=== PATIENT | female | born 1945 | race Caucasian/White ===

== ENCOUNTER 2021-11-03 17:57 | Inpatient (IN) ==
[2021-11-03] MEDS ORDERED: 0.9 % SODIUM CHLORIDE 1,000 ML IV ONE (18:11)
[2021-11-03] MEDS ORDERED: ACETAMINOPHEN 325 MG TABLET PO ONE (18:11)
[2021-11-03] MEDS ORDERED: 0.9 % SODIUM CHLORIDE 1,640 ML IV ONE (18:12)
[2021-11-03 18:23] LABS: POC Calcium, Ionized 1.14 (1.16-1.32); POC Creatinine 0.6 (0.6-1.2); POC Potassium 3.9 (3.3-5.1)
[2021-11-03] MEDS ORDERED: KETOROLAC 30 MG/ML VIAL IV ONE (18:34)
--- NOTE | 2021-11-03 18:45 | Emergency Department Note ---
Fever HPI General Chief Complaint: Fever Stated Complaint: Fever, confusion Time Seen by Provider: 11/03/21 18:01 Source: EMS Mode of arrival: EMS Limitations: no limitations History of Present Illness HPI Narrative: Narrative: Patient presents to the ED via EMS with complaints of fever. EMS states that when they arrived patient's temperature is greater than 104. They state that she was alert but that her responses were slow but appropriate. Patient states that she has been having fever, body ache, dry cough and chills x1 week. who was not at bedside reported to EMS that she just seemed very tired and confused. Patient states that she believes she has been drinking enough fluid. She denies nausea, vomiting, abdominal pain, dysuria, hematuria, urinary frequency, diarrhea, cardiac chest pain, heart palpitation, vision change, headache. Patient states that she just came back from vacation 1 week ago. She was in [facility] for 6 weeks and got back last Monday. She started feeling bad on Monday and has progressively gotten worse. Patient denies her being sick at home. She states she been trying take care of her. She took a home COVID test that was negative. Patient denies any other alleviating or aggravating factors. Related Data Home Medications Medication Instructions Recorded Confirmed bupropion HCl 150 mg tablet,12 hr 150 mg PO DAILY 11/03/21 11/03/21 sustained-release Previous Rx's Medication Instructions Recorded albuterol sulfate 90 mcg/actuation 2 puff inhalation .Q4-6H PRN 08/10/21 aerosol inhaler (Ventolin HFA) bronchospasm #18 grams furosemide 40 mg tablet 40 mg PO Q OTHER DAY #30 tabs 08/10/21 montelukast 10 mg tablet See Rx Instructions .Route 08/10/21 .COMPLEX #90 tabs omeprazole 40 mg capsule,delayed 40 mg PO QDAY #90 caps 08/10/21 release sertraline 100 mg tablet 100 mg PO QDAY #90 tabs 08/10/21 Allergies Allergy/AdvReac Type Severity Reaction Status Date / Time ibandronate sodium Allergy Severe Anaphylaxis Verified 11/03/21 17:58 [From Boniva] Raloxifene [From Evista] Allergy Severe Anaphylaxis Verified 11/03/21 17:58 Sulfa (Sulfonamide Allergy Mild RASH Verified 11/03/21 17:58 Antibiotics) levofloxacin [From LEVAQUIN] Allergy Unknown MUSCLE Verified 11/03/21 17:58 CRAMPING naproxen [From Aleve] Allergy Unknown Hives Verified 11/03/21 17:58 wheat AdvReac Intermediate Nausea Verified 11/03/21 17:58 Unspecified Allergy Unknown Other Uncoded 08/10/21 09:32 Dairy products AdvReac Intermediate Nausea Uncoded 08/10/21 09:32 Review of Systems ROS ROS Narrative: Narrative: All systems ED: reviewed and negative except as stated. PFSH Narrative Patient History Narrative: Narrative: Medical/Surgical/Family History All Active Problems (Updated 11/03/21 @ 20:13 by Jose C Kathleen DO) Sepsis (Acute) Pneumonia involving right lung (Acute) Elevated procalcitonin (Acute) Chronic SI joint pain (Acute) Displaced intertrochanteric fracture of left femur, subsequent encounter for closed fracture with routine healing (Chronic) Left hip pain (Chronic) Right knee pain (Chronic) Recurrent pneumonia (Chronic) Compression fracture of vertebra (Chronic) Radiculopathy, lumbar region (Chronic) Postlaminectomy syndrome, not elsewhere classified (Chronic) Chronic pain (Chronic) Radiculopathy, lumbosacral region (Chronic) Postlaminectomy syndrome (Chronic) Spasm of esophagus (Chronic) Left upper quadrant abdominal pain (Chronic) Immunization deficiency (Chronic) Hyperlipidemia (Chronic) Influenza vaccine refused (Chronic) Fall from slip, trip, or stumble (Chronic) Fracture of humeral head, right, closed (Chronic) Microhematuria (Chronic) Bronchitis (Chronic) Abnormal electrocardiography (Chronic) Abnormal Electrocardiogram (Chronic) Encounter for Health Maintenance Examination in Adult (Chronic) H/O surgical procedure (Chronic) Hx of tonsillectomy (Chronic) H/O surgical procedure (Chronic) History of mandibular surgery (Chronic) H/O: hysterectomy (Chronic) H/O esophagogastroduodenoscopy (Chronic 02/25/14) H/O colonoscopy (Chronic 03/17/10) History of back surgery (Chronic) Hx of appendectomy (Chronic) Trochanteric bursitis (Chronic) Closed compression fracture of thoracic vertebra (Chronic) Sexually transmitted disease (Chronic) Osteoporosis (Chronic) Osteopenia (Chronic) Osteoarthrosis (Chronic) Myalgia (Chronic) Migraine (Chronic) Lumbar compression fracture (Chronic) Low back pain (Chronic) Indigestion (Chronic) Hiatal hernia (Chronic) Gallbladder disorder (Chronic) Esophageal spasm (Chronic) Esophageal ring (Chronic) Eosinophilic esophagitis (Chronic) Edema (Chronic 09/11/13) Diverticulosis of colon (Chronic) Depression (Chronic) Chronic cough (Chronic) Chest pain (Chronic) Anxiety disorder (Chronic) Medical History Abnormal Electrocardiogram Anxiety disorder (03/12/14-Dr Bedoya) Chest pain (03/12/14-Dr Bedoya) Chronic cough Chronic pain Closed compression fracture of thoracic vertebra Compression fracture of vertebra Depression Displaced intertrochanteric fracture of left femur, subsequent encounter for closed fracture with routine healing Diverticulosis of colon 03/17/10 Colonoscopy--Dr. Mehta--rare diverticula left colon; small mucosal defect in rectum. Edema (09/11/13) Encounter for Health Maintenance Examination in Adult Eosinophilic esophagitis Esophageal ring 12/15/2010 EGD with biopsy--Dr. Mehta--Hiatal hernia, rule out short segment Cornell's esophagus; esophageal ring, dilated; esophageal spasm. Esophageal spasm 12/15/2010 EGD with biopsy--Dr. Mehta--Hiatal hernia, rule out short segment Cornell's esophagus; esophageal ring, dilated; esophageal spasm. Gallbladder disorder 1990 Hiatal hernia 12/15/2010 EGD with biopsy--Dr. Mehta--Hiatal hernia, rule out short segment Cornell's esophagus; esophageal ring, dilated; esophageal spasm. Immunization deficiency Indigestion Left hip pain Left upper quadrant abdominal pain Low back pain S/P lumbar decompression and fusion approx. February,--followed through Dr. Dougherty. Lumbar compression fracture Migraine Myalgia (03/12/14-Dr Bedoya) Osteoarthrosis Osteopenia 09/12/06 Bone Density--Spine T-score -3.5; Hip T-score -2.2. 03/28/13 Bone Density--Femoral neck T-score -2.2 (osteopenia); distal wrist T-score -2.7 (moderate osteoporosis) Osteoporosis 09/12/06 Bone Density--Spine T-score -3.5; Hip T-score -2.2. 03/28/13 Bone Density--Femoral neck T-score -2.2 (osteopenia); distal wrist T-score -2.7 (moderate osteoporosis) Postlaminectomy syndrome Postlaminectomy syndrome, not elsewhere classified Radiculopathy, lumbar region Radiculopathy, lumbosacral region Recurrent pneumonia Right knee pain Sexually transmitted disease Herpes Spasm of esophagus Trochanteric bursitis Hip region (03/17/2014-Dr Polo) Surgical History H/O colonoscopy (03/17/10) 03/17/10 Colonoscopy--Dr. Mehta--rare diverticula left colon; small mucosal defect in rectum. H/O esophagogastroduodenoscopy (02/25/14) 02/25/2014-see path report 12/19/13-see path report 12/15/2010 EGD with biopsy--Dr. Mehta--Hiatal hernia, rule out short segment Cornell's esop hagus; esophageal ring, dilated; esophageal spasm. 05/15/2013-- Rule out esophagitis; eshophageal ring-dilated, minor gastritis. 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 H/O: hysterectomy 1987 History of back surgery 2012 (04/15/14-Dr Caputo)Thoracic History of hip surgery (07/28/20) left cephalomedullary nailing History of mandibular surgery (04/15/14-Dr Caputo) History of surgery SCS Trial T7-9 w/sed 12/12/1708/25 SCS Trial T7-9 w/sed 08/09/1703/22 Vertebroplasty T9, T11 w/sed 03/19/1301/20 TESI #1 T10-11 w/o sed 01/29/201310/20 TF STEWART #2 Right L3-4 w/o sed 10/29/1209/20 LESI #1 L4-5 w/o sed 10/03/2012 History of surgery SCS perm 01/19/2018 [facility] Hx of appendectomy (04/15/14-Dr Caputo) Hx of tonsillectomy (04/15/14-Dr Caputo) Family History Grandmother Rheumatoid arthritis Social History Smoking Status: Former smoker Alcohol Intake Frequency: 0-2 drinks per day Substance Use: does not use Exam Narrative Narrative: Narrative: General Limitations: no limitations General appearance: Present alert Head Head: Present atraumatic and normocephalic Eye Eye: Present PERRL and EOMI ENT ENT: Present normal oropharynx and mucous membranes moist Neck Neck: Present normal inspection and full ROM; Absent meningismus (Negative Brudzinski and Kernig's) Respiratory Respiratory: Present normal lung sounds bilaterally and other (Tachypnea); Absent respiratory distress Cardiovascular Cardiovascular: Present normal rhythm and tachycardia Adbominal Abdominal: Present soft; Absent tenderness Extremities Extremities: Present normal inspection and normal capillary refill Back Back: Absent CVA tenderness (R) or CVA tenderness (L) Neurological Neurological: Present alert Expanded Neurological Patient oriented to: Present person and place Speech: Present other (Delayed but appropriate speech) Psychiatric Psychiatric: Present flat affect and other (Lethargic) Skin Skin: Present warm (WNL) and intact Course Course Course Narrative: Patient was evaluated for fever and confusion. Initially patient had a temperature of 104 has slow responses to my questions. She was tachycardic with a heart rate of 96 with respirations of 26. She was maintaining adequate oxygen saturation on room air. Patient was given oral Tylenol as well as IV Toradol. She did receive IV fluids as well. Patient's temperature began to trend down and she became much more alert and oriented on reexamination she was alert and oriented x3. She states she did not remember our initial conversation. Her who eventually showed up at bedside states that she was looking much better. EKG was obtained and shows sinus tachycardia. Chest x-ray obtained with image reviewed myself which is concerning for right-sided pneumonia. Patient was started on IV antibiotics to include vancomycin and Zosyn. Lactic acid was within normal limits. Patient's VBG showed a pH of 7.46 with a slightly alkalotic. Her procalcitonin was elevated. Patient does meet sepsis criteria with pneumonia, fever and tachycardia. Case was discussed with hospitalist who has agreed to admit the patient. Reevaluation(s) Reevaluation #1: Patient remains hemodynamically stable. No new complaints at this time. Monica katz is much more awake and alert on reexamination. She is alert and oriented x3. Her states that she is doing much better than when she was at home. Time: 19:15 Consultations Consultation #1: Case discussed with hospitalist who has agreed to admit the patient Time: 20:46 Vital Signs Vital signs: Vital Signs Temperature 104.5 F H 11/03/21 18:03 Pulse Rate 98 H 11/03/21 18:03 Respiratory Rate 22 11/03/21 18:03 Blood Pressure 154/83 11/03/21 18:03 Pulse Oximetry (%) 100 11/03/21 18:03 Oxygen Delivery Method 11/03/21 18:03 Temperature 100.9 F H 11/03/21 20:48 Pulse Rate 88 11/03/21 20:46 Respiratory Rate 26 H 11/03/21 20:46 Blood Pressure 115/65 11/03/21 20:46 Pulse Oximetry (%) 98 11/03/21 20:46 Oxygen Delivery Method 11/03/21 18:03 MDM MDM Narrative Medical decision making narrative: Narrative: Differential Diagnosis Differential Diagnosis: Viral illness, UTI, sepsis Medical Records Medical records reviewed: Yes I reviewed the patient's medical records. Lab Data Lab results reviewed: Yes I reviewed the patient's lab results. Result diagrams: 11/03/21 18:20 Labs: Lab Results 11/03/21 11/03/21 11/03/21 Range/Units 18:18 18:18 18:20 WBC 10.4 (4.5-11.0) K/mcL RBC 4.71 (3.59-5.38) M/mcL Hgb 14.5 (11.2-15.7) g/dL Hct 44.0 (34.1-44.9) % POC Hct 46.0 (36-48) MCV 93.4 (80.0-100.0) fL MCH 30.8 (26.0-34.0) pg MCHC 33.0 (31.0-36.0) g/dL RDW 13.8 (11.5-14.5) % Plt Count 249 (140-440) K/mcL MPV 11.7 H (7.4-10.4) fL Immature Gran % (Auto) 0.3 (0.0-0.5) % Neut % (Auto) 90.4 H (38.0-78.0) % Lymph % (Auto) 6.8 L (15.5-49.0) % [place] % (Auto) 2.2 (1.0-12.0) % Eos % (Auto) 0 (0.0-7.0) % Baso % (Auto) 0.3 (0.0-2.0) % Lymph # (Auto) 0.71 L (1.50-4.80) K/mcL [place] # (Auto) 0.23 (0.10-0.90) K/mcL Eos # (Auto) 0 (0.00-0.70) K/mcL Baso # (Auto) 0.03 (0.00-0.30) K/mcL Immature Gran # 0.03 (0.00-0.05) K/mcl Absolute Neutrophils 9.41 H (1.80-8.00) K/mcL POC VBG pH 7.49 H (7.32-7.42) POC VBG pCO2 at Temp 36.3 L (41-51) POC VBG pO2 22 L (25-40) POC VBG HCO3 27.9 (24-28) POC VBG Total CO2 29.0 (25-29) POC Venous O2 Sat 44.0 (40-70) POC VBG Base Excess 5.0 H* (-2-2) VBG Lactic Acid 1.4 (0.5-2) POC Sodium 137 (133-145) POC Potassium 3.9 (3.3-5.1) POC Chloride 103 (96-108) POC Total CO2 28.0 (22-30) POC BUN 20 (6-20) POC Creatinine 0.6 (0.6-1.2) POC Glucose 128 H (70-105) POC WB Ioniz Calcium 1.14 L (1.16-1.32) Procalcitonin (<0.10) ng/mL Urine Opiates Screen Ur Opiates Confirm Ur Oxycodone Screen U Oxycod/Oxymor Confirm Urine Methadone Screen Ur Methadone Confirm Ur Barbiturates Screen Ur Barbiturate Confirm Ur Phencyclidine Scrn Urine PCP Confirm Ur Amphetamines Screen U Amphetamines Confirm U Benzodiazepines Scrn Ur Benzodiazepine, Qnt Urine Cocaine Screen Urine Cocaine Confirm U Cannabinoids Confirm U Marijuana (THC) Screen 11/03/21 11/03/21 11/03/21 Range/Units 18:20 19:30 20:13 WBC (4.5-11.0) K/mcL RBC (3.59-5.38) M/mcL Hgb (11.2-15.7) g/dL Hct (34.1-44.9) % POC Hct (36-48) MCV (80.0-100.0) fL MCH (26.0-34.0) pg MCHC (31.0-36.0) g/dL RDW (11.5-14.5) % Plt Count (140-440) K/mcL MPV (7.4-10.4) fL Immature Gran % (Auto) (0.0-0.5) % Neut % (Auto) (38.0-78.0) % Lymph % (Auto) (15.5-49.0) % [place] % (Auto) (1.0-12.0) % Eos % (Auto) (0.0-7.0) % Baso % (Auto) (0.0-2.0) % Lymph # (Auto) (1.50-4.80) K/mcL [place] # (Auto) (0.10-0.90) K/mcL Eos # (Auto) (0.00-0.70) K/mcL Baso # (Auto) (0.00-0.30) K/mcL Immature Gran # (0.00-0.05) K/mcl Absolute Neutrophils (1.80-8.00) K/mcL POC VBG pH 7.49 H (7.32-7.42) POC VBG pCO2 at Temp 28.9 L (41-51) POC VBG pO2 51 H (25-40) POC VBG HCO3 21.9 L (24-28) POC VBG Total CO2 23.0 L (25-29) POC Venous O2 Sat 89.0 H (40-70) POC VBG Base Excess -1.0 (-2-2) VBG Lactic Acid 0.7 (0.5-2) POC Sodium (133-145) POC Potassium (3.3-5.1) POC Chloride (96-108) POC Total CO2 (22-30) POC BUN (6-20) POC Creatinine (0.6-1.2) POC Glucose (70-105) POC WB Ioniz Calcium (1.16-1.32) Procalcitonin 0.35 H (<0.10) ng/mL Urine Opiates Screen None detected Ur Opiates Confirm TNP Ur Oxycodone Screen None detected U Oxycod/Oxymor Confirm TNP Urine Methadone Screen None detected Ur Methadone Confirm TNP Ur Barbiturates Screen None detected Ur Barbiturate Confirm TNP Ur Phencyclidine Scrn None detected Urine PCP Confirm TNP Ur Amphetamines Screen None detected U Amphetamines Confirm TNP U Benzodiazepines Scrn None detected Ur Benzodiazepine, Qnt TNP Urine Cocaine Screen None detected Urine Cocaine Confirm TNP U Cannabinoids Confirm TNP U Marijuana (THC) Screen None detected ED POC Tests ED POC Tests: JAMEE - Influenza A Negative JAMEE - Influenza B Negative JAMEE - SARS Antigen Negative EKG Data EKG #1: EKG attestation: Yes I reviewed and interpreted this EKG. EKG shows normal: sinus rhythm Rate: normal (96) Rhythm: NSR Hunt/QRS: normal Heart block present: None ST segment elevation in: None ST segment depression in: None QTc: normal QRS morphology: Present normal Interpretation: no acute changes Core Measures AMI Core Measures Followed: Yes Discharge Plan Patient/Caregiver Discharge Instructions Pt seen by BUS BOY/PA only: No Clinical Impression: Sepsis, Pneumonia involving right lung, Elevated procalcitonin Patient Disposition: Xfer As Inpt ([facility]) Condition: Fair Follow up with: Crow Masters MD [Primary Care Provider] - Prescriptions: No Action montelukast 10 mg tablet See Rx Instructions .ROUTE .COMPLEX Qty: 90 3RF Dose Instruction: TAKE 1 TABLET BY MOUTH EVERY EVENING Rx Instructions: TAKE 1 TABLET BY MOUTH EVERY EVENING albuterol sulfate [Ventolin HFA] 90 mcg/actuation HFA aerosol inhaler 2 puff inhalation .Q4-6H PRN (Reason: bronchospasm) Qty: 18 1RF Rx Instructions: administer with aerochamber spacer furosemide 40 mg tablet 40 mg PO Q OTHER DAY Qty: 30 0RF Rx Instructions: Can try 1/2 tab sertraline 100 mg tablet 100 mg PO QDAY Qty: 90 3RF omeprazole 40 mg capsule,delayed release(DR/EC) 40 mg PO QDAY Qty: 90 1RF bupropion HCl 150 mg tablet sustained-release 12 hr 150 mg PO DAILY Rx Instructions: TAKE 1 TABLET BY MOUTH DAILY
[2021-11-03] MEDS ORDERED: VANCOMYCIN 1,000 MG in 0.9 % SODIUM CHLORIDE 250 ML IV ONE (18:56)
[2021-11-03] MEDS ORDERED: PIPERACILLIN SODIUM/TAZOBACTAM 3.375 GM in DEXTROSE 5% IN WATER 50 ML IV ONE (18:56)
[2021-11-03 19:04] LABS: Basophils # (Auto) 0.03 K/mcL (0.00-0.30); Basophils % (Auto) 0.3 % (0.0-2.0); Eosinophils # (Auto) 0 K/mcL (0.00-0.70); Eosinophils % (Auto) 0 % (0.0-7.0); Hemoglobin 14.5 g/dL (11.2-15.7); Lymphocytes # (Auto) 0.71 K/mcL (1.50-4.80); Lymphocytes % (Auto) 6.8 % (15.5-49.0); Mean Cell Volume 93.4 fL (80.0-100.0); Mean Platelet Volume 11.7 fL (7.4-10.4); Monocytes # (Auto) 0.23 K/mcL (0.10-0.90); Monocytes % (Auto) 2.2 % (1.0-12.0); Neutrophils % (Auto) 90.4 % (38.0-78.0); Platelet Count 249 K/mcL (140-440); RBC 4.71 M/mcL (3.59-5.38); Red Cell Distribution Width 13.8 % (11.5-14.5); WBC 10.4 K/mcL (4.5-11.0)
--- NOTE | 2021-11-03 20:21 | XRay Report ---
HISTORY: Cough FINDINGS: The right lower hilum appears enlarged and indistinct. There is a vague haziness in the right lower lobe. Some of the haziness is due to scatter artifact due to superimposed subcutaneous fat and breast tissue. Left lung is clear. The heart size is within upper limits of normal. Patient has spinal stimulator electrodes in the midthoracic spinal canal. Kyphoplasty had been performed at two levels in the lower thoracic spine for compression fractures. There is an old healed fracture of the right humeral head. Comparison with the prior x-ray done on 11/07/16 shows the right perihilar opacity is new and the right lower lobe appears more opacified. IMPRESSION: Possible right lower lobe pneumonia. Prominent right hilum. This could be due to superimposed pneumonia or adenopathy. Underlying tumor cannot be excluded. Follow-up two view chest x-ray is recommended after treatment for pneumonia. Interpreted and Authenticated by: Greg Barton 11/03/21
[2021-11-03 20:51] LABS: Amphetamine Screen,Urine None detected; Barbiturate Screen,Urine None detected; Benzodiazepines Screen,Urine None detected; Cannabinoid Screen,Urine None detected; Cocaine Screen,Urine None detected; Opiate Screen,Urine None detected; Oxycodone, Urine Screen None detected; Phencyclidine Screen,Urine None detected
[2021-11-03 21:09] LABS: Appearance,Urine Slightly Cloudy (Clear); Bacteria,Urine MANY /hpf (0); Bilirubin,Urine Moderate mg/dL (Negative); Color,Urine Amber; Culture Indicated,Urine yes; Ketones,Urine 40 mg/dL mg/dL (Negative); Leukocyte Esterase,Urine Negative /uL (Negative); Mucus,Urine MANY /hpf; Nitrate,Urine Positive (Negative); PH,Urine 5.5 (5.0-9.0); Protein,Urine >=300 mg/dL mg/dL (Negative); Specific Gravity,Urine >= 1.030 (1.000-1.035); Urine Blood Moderate ery/mcL (Negative); Urine RBC 8 /hpf (0-3); Urine Squamous Epithelial Cell 2 /hpf (0-4); Urine Transitional Epi Cells 1 /hpf (0-2); Urine WBC 17 /hpf (0-4); Urobilinogen,Urine >=8.0 E.U./dL mg/dL
[2021-11-03] MEDS ORDERED: ALBUTEROL SULFATE 200 PUFF INHALER INH PRN (21:25)
--- NOTE | 2021-11-03 21:45 | Internal Med History&Physical ---
HPI History of Present Illness Patient information: Note initiated : 11/03/21 at 9:33 pm Service Date, if different from initiated Date: [] Patient: Farhat Milian a 76 y/o F admitted on for Fever, confusion. Chief Complaint: [] Chief complaint: fever, chills, diaphoresis, shortness of breath, productive cough History of present illness: Ms. Milian is a 76 year old F history of osteoporosis, depression with anxiety, presenting with 5-day history of fever, chills, diaphoresis, shortness of breath, productive cough with clear sputum productions. She recently returned at from a 3 weeks [place] trip. Over the past 5 days, she is experiencing fever, chills, diaphoresis, shortness of breath, productive cough with clear sputum. She is also committing of substernal chest pain whenever she coughs. She is also committing of respiratory wheezings. She is also coming off general body weakness. Vital signs at ED presentations significant for fever with T- max 40.3 Celsius, and tachypnea with rate of breathing up to the low 30s breaths per minutes. Oxygen saturations in the high 90s on room air. Labs significant for lack of leukocytosis with WBC 10.4 but with significant left shift. Lactic acid 0.7, procalcitonin 0.35. COVID-negative. UA suggests presence of urinary tract infections. Chest x-ray also showing infiltrate in the right lower lobe suggestive of pneumonia. Constitutional Constitutional: Present chills, excessive sweating, fever(s) and weakness; Absent fatigue EENT Eyes: Absent blurry vision, change in vision, loss of vision or other visual disturbances Ears: Absent decreased hearing or tinnitus Nose, mouth and throat: Absent abnormal hearing, dry mouth, headache(s), nasal congestion or sore throat Cardiovascular Cardiovascular: Absent chest pain, chest pain at rest, edema, irregular heart rhythm or palpatations Respiratory Respiratory: Present cough, dyspnea, wheezing and excessive phlegm production Gastrointestinal Gastrointestinal: Absent abdominal pain, constipation, diarrhea, nausea or vomiting Musculoskeletal Musculoskeletal: Absent back pain, deformity, limited range of motion, muscle cramps, muscle weakness or numbness Integumentary Integumentary: Absent lesions, rash or wounds Neurological Neurological: Absent focal weakness, headache(s) or numbness Psychiatric Psychiatric: Absent anxiety, depression or hallucinations PFSH PFSH All Active Problems (Updated 11/03/21 @ 21:41 by Narciso Ledesma MD) Depression with anxiety (Acute) UTI (urinary tract infection) (Acute) Sepsis (Acute) Pneumonia involving right lung (Acute) Elevated procalcitonin (Acute) Acute UTI (Acute) Chronic SI joint pain (Acute) Displaced intertrochanteric fracture of left femur, subsequent encounter for closed fracture with routine healing (Chronic) Left hip pain (Chronic) Right knee pain (Chronic) Recurrent pneumonia (Chronic) Compression fracture of vertebra (Chronic) Radiculopathy, lumbar region (Chronic) Postlaminectomy syndrome, not elsewhere classified (Chronic) Chronic pain (Chronic) Radiculopathy, lumbosacral region (Chronic) Postlaminectomy syndrome (Chronic) Spasm of esophagus (Chronic) Left upper quadrant abdominal pain (Chronic) Immunization deficiency (Chronic) Hyperlipidemia (Chronic) Influenza vaccine refused (Chronic) Fall from slip, trip, or stumble (Chronic) Fracture of humeral head, right, closed (Chronic) Microhematuria (Chronic) Bronchitis (Chronic) Abnormal electrocardiography (Chronic) Abnormal Electrocardiogram (Chronic) Encounter for Health Maintenance Examination in Adult (Chronic) H/O surgical procedure (Chronic) Hx of tonsillectomy (Chronic) H/O surgical procedure (Chronic) History of mandibular surgery (Chronic) H/O: hysterectomy (Chronic) H/O esophagogastroduodenoscopy (Chronic 02/25/14) H/O colonoscopy (Chronic 03/17/10) History of back surgery (Chronic) Hx of appendectomy (Chronic) Trochanteric bursitis (Chronic) Closed compression fracture of thoracic vertebra (Chronic) Sexually transmitted disease (Chronic) Osteoporosis (Chronic) Osteopenia (Chronic) Osteoarthrosis (Chronic) Myalgia (Chronic) Migraine (Chronic) Lumbar compression fracture (Chronic) Low back pain (Chronic) Indigestion (Chronic) Hiatal hernia (Chronic) Gallbladder disorder (Chronic) Esophageal spasm (Chronic) Esophageal ring (Chronic) Eosinophilic esophagitis (Chronic) Edema (Chronic 09/11/13) Diverticulosis of colon (Chronic) Depression (Chronic) Chronic cough (Chronic) Chest pain (Chronic) Anxiety disorder (Chronic) Medical History Abnormal Electrocardiogram Anxiety disorder (03/12/14-Dr Bedoya) Chest pain (03/12/14-Dr Bedoya) Chronic cough Chronic pain Closed compression fracture of thoracic vertebra Compression fracture of vertebra Depression Displaced intertrochanteric fracture of left femur, subsequent encounter for closed fracture with routine healing Diverticulosis of colon 03/17/10 Colonoscopy--Dr. Mehta--rare diverticula left colon; small mucosal defect in rectum. Edema (09/11/13) Encounter for Health Maintenance Examination in Adult Eosinophilic esophagitis Esophageal ring 12/15/2010 EGD with biopsy--Dr. Mehta--Hiatal hernia, rule out short segment Cornell's esophagus; esophageal ring, dilated; esophageal spasm. Esophageal spasm 12/15/2010 EGD with biopsy--Dr. Mehta--Hiatal hernia, rule out short segment Cornell's esophagus; esophageal ring, dilated; esophageal spasm. Gallbladder disorder 1990 Hiatal hernia 12/15/2010 EGD with biopsy--Dr. Mehta--Hiatal hernia, rule out short segment Cornell's esophagus; esophageal ring, dilated; esophageal spasm. Immunization deficiency Indigestion Left hip pain Left upper quadrant abdominal pain Low back pain S/P lumbar decompression and fusion approx. February,--followed through Dr. Dougherty. Lumbar compression fracture Migraine Myalgia (03/12/14-Dr Bedoya) Osteoarthrosis Osteopenia 09/12/06 Bone Density--Spine T-score -3.5; Hip T-score -2.2. 03/28/13 Bone Density--Femoral neck T-score -2.2 (osteopenia); distal wrist T-score -2.7 (moderate osteoporosis) Osteoporosis 09/12/06 Bone Density--Spine T-score -3.5; Hip T-score -2.2. 03/28/13 Bone Density--Femoral neck T-score -2.2 (osteopenia); distal wrist T-score -2.7 (moderate osteoporosis) Postlaminectomy syndrome Postlaminectomy syndrome, not elsewhere classified Radiculopathy, lumbar region Radiculopathy, lumbosacral region Recurrent pneumonia Right knee pain Sexually transmitted disease Herpes Spasm of esophagus Trochanteric bursitis Hip region (03/17/2014-Dr Polo) Surgical History H/O colonoscopy (03/17/10) 03/17/10 Colonoscopy--Dr. Mehta--rare diverticula left colon; small mucosal defect in rectum. H/O esophagogastroduodenoscopy (02/25/14) 02/25/2014-see path report 12/19/13-see path report 12/15/2010 EGD with biopsy--Dr. Mehta--Hiatal hernia, rule out short segment Cornell's esophagus; esophageal ring, dilated; esophageal spasm. 05/15/2013-- Rule out esophagitis; eshophageal ring-dilated, minor gastritis. 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 H/O: hysterectomy 1987 History of back surgery 2012 (04/15/14-Dr Caputo)Thoracic History of hip surgery (07/28/20) left cephalomedullary nailing History of mandibular surgery (04/15/14-Dr Caputo) History of surgery SCS Trial T7-9 w/sed 12/12/1708/25 SCS Trial T7-9 w/sed 08/09/1703/22 Vertebroplasty T9, T11 w/sed 03/19/1301/20 TESI #1 T10-11 w/o sed 01/29/201310/20 TF STEWART #2 Right L3-4 w/o sed 10/29/1209/20 LESI #1 L4-5 w/o sed 10/03/2012 History of surgery SCS perm 01/19/2018 [facility] Hx of appendectomy (04/15/14-Dr Caputo) Hx of tonsillectomy (04/15/14-Dr Caputo) Family History Grandmother Rheumatoid arthritis Social History household members: spouse housing: house marital status: other: Children-2 alcohol intake frequency: 0-2 drinks per day substance use type: does not use MEDS/ALLERGIES Home Medications and Allergies Home Medications Medication Instructions Recorded Confirmed Type albuterol sulfate 90 mcg/actuation 2 puff inhalation .Q4-6H PRN 08/10/21 11/03/21 Rx aerosol inhaler (Ventolin HFA) bronchospasm #18 grams furosemide 40 mg tablet 40 mg PO Q OTHER DAY #30 tabs 08/10/21 11/03/21 Rx montelukast 10 mg tablet See Rx Instructions .Route 08/10/21 11/03/21 Rx .COMPLEX #90 tabs omeprazole 40 mg capsule,delayed 40 mg PO QDAY #90 caps 08/10/21 11/03/21 Rx release sertraline 100 mg tablet 100 mg PO QDAY #90 tabs 08/10/21 11/03/21 Rx bupropion HCl 150 mg tablet,12 hr 150 mg PO DAILY 11/03/21 11/03/21 History sustained-release Allergies Allergy/AdvReac Type Severity Reaction Status Date / Time ibandronate sodium Allergy Severe Anaphylaxis Verified 11/03/21 17:58 [From Boniva] Raloxifene [From Evista] Allergy Severe Anaphylaxis Verified 11/03/21 17:58 Sulfa (Sulfonamide Allergy Mild RASH Verified 11/03/21 17:58 Antibiotics) levofloxacin [From LEVAQUIN] Allergy Unknown MUSCLE Verified 11/03/21 17:58 CRAMPING naproxen [From Aleve] Allergy Unknown Hives Verified 11/03/21 17:58 wheat AdvReac Intermediate Nausea Verified 11/03/21 17:58 Unspecified Allergy Unknown Other Uncoded 08/10/21 09:32 Dairy products AdvReac Intermediate Nausea Uncoded 08/10/21 09:32 EXAM Constitutional Vitals: Temp Pulse Resp BP Pulse Ox O2 Del Method 38.3 C H 88 21 121/55 98 11/03/21 20:48 11/03/21 20:46 11/03/21 21:16 11/03/21 21:16 11/03/21 20:46 11/03/21 18:03 General appearance: cooperative and no acute distress Head Head exam: Present atraumatic and normocephalic Eye Eye exam: Present EOMI and PERRL ENT ENT exam: Present mucous membranes moist, normal exam and normal external ear exam Neck Neck exam: Present normal inspection; Absent lymphadenopathy, tenderness or thyromegaly Respiratory Respiratory exam: Present rhonchi and wheezes; Absent accessory muscle use or respiratory distress Cardiovascular Cardiovascular exam: Present normal rate and rhythm; Absent JVD GI/Abdominal GI/Abdominal exam: Present normal bowel sounds and soft; Absent organomegaly or tenderness Extremities Exam Extremities exam: Present full ROM, normal capillary refill and normal inspection; Absent tenderness Neurological Exam Neurological exam: Present alert, CN II-XII intact and oriented X3; Absent motor sensory deficit Psychiatric Psychiatric exam: Present normal affect and normal mood; Absent anxious or depressed Skin Skin exam: Present dry and intact DATA Data Completed and Pending Labs: Labs from last 24 hours 11/03/21 11/03/21 11/03/21 20:13 19:30 19:30 WBC RBC Hgb Hct POC Hct MCV MCH MCHC RDW Plt Count MPV Immature Gran % (Auto) Neut % (Auto) Lymph % (Auto) [place] % (Auto) Eos % (Auto) Baso % (Auto) Lymph # (Auto) [place] # (Auto) Eos # (Auto) Baso # (Auto) Immature Gran # Absolute Neutrophils POC VBG pH 7.49 H POC VBG pCO2 at Temp 28.9 L POC VBG pO2 51 H POC VBG HCO3 21.9 L POC VBG Total CO2 23.0 L POC Venous O2 Sat 89.0 H POC VBG Base Excess -1.0 VBG Lactic Acid 0.7 POC Sodium POC Potassium POC Chloride POC Total CO2 POC BUN POC Creatinine POC Glucose POC WB Ioniz Calcium NT-Pro-B Natriuret Pep Procalcitonin Urine Color [place] Urine Appearance Slightly cloudy A Urine pH 5.5 Ur Specific [place] >= 1.030 Urine Protein >=300 mg/dl A Urine Glucose (UA) 100 mg/dl A Urine Ketones 40 mg/dl A Urine Occult Blood Moderate A Urine Nitrate Positive A Urine Bilirubin Moderate A Urine Urobilinogen >=8.0 e.u./dl A Ur Leukocyte Esterase Negative Urine RBC 8 H Urine WBC 17 H Ur Squamous Epith Cells 2 Ur Transition Epith Cell 1 Urine Bacteria Many A Urine Mucus Many A Ur Culture Indicated? yes Urine Opiates Screen None detected Ur Opiates Confirm TNP Ur Oxycodone Screen None detected U Oxycod/Oxymor Confirm TNP Urine Methadone Screen None detected Ur Methadone Confirm TNP Ur Barbiturates Screen None detected Ur Barbiturate Confirm TNP Ur Phencyclidine Scrn None detected Urine PCP Confirm TNP Ur Amphetamines Screen None detected U Amphetamines Confirm TNP U Benzodiazepines Scrn None detected Ur Benzodiazepine, Qnt TNP Urine Cocaine Screen None detected Urine Cocaine Confirm TNP U Cannabinoids Confirm TNP U Marijuana (THC) Screen None detected 11/03/21 11/03/21 11/03/21 19:11 18:20 18:20 WBC 10.4 RBC 4.71 Hgb 14.5 Hct 44.0 POC Hct MCV 93.4 MCH 30.8 MCHC 33.0 RDW 13.8 Plt Count 249 MPV 11.7 H Immature Gran % (Auto) 0.3 Neut % (Auto) 90.4 H Lymph % (Auto) 6.8 L [place] % (Auto) 2.2 Eos % (Auto) 0 Baso % (Auto) 0.3 Lymph # (Auto) 0.71 L [place] # (Auto) 0.23 Eos # (Auto) 0 Baso # (Auto) 0.03 Immature Gran # 0.03 Absolute Neutrophils 9.41 H POC VBG pH POC VBG pCO2 at Temp POC VBG pO2 POC VBG HCO3 POC VBG Total CO2 POC Venous O2 Sat POC VBG Base Excess VBG Lactic Acid POC Sodium POC Potassium POC Chloride POC Total CO2 POC BUN POC Creatinine POC Glucose POC WB Ioniz Calcium NT-Pro-B Natriuret Pep Pending Procalcitonin 0.35 H Urine Color Urine Appearance Urine pH Ur Specific [place] Urine Protein Urine Glucose (UA) Urine Ketones Urine Occult Blood Urine Nitrate Urine Bilirubin Urine Urobilinogen Ur Leukocyte Esterase Urine RBC Urine WBC Ur Squamous Epith Cells Ur Transition Epith Cell Urine Bacteria Urine Mucus Ur Culture Indicated? Urine Opiates Screen Ur Opiates Confirm Ur Oxycodone Screen U Oxycod/Oxymor Confirm Urine Methadone Screen Ur Methadone Confirm Ur Barbiturates Screen Ur Barbiturate Confirm Ur Phencyclidine Scrn Urine PCP Confirm Ur Amphetamines Screen U Amphetamines Confirm U Benzodiazepines Scrn Ur Benzodiazepine, Qnt Urine Cocaine Screen Urine Cocaine Confirm U Cannabinoids Confirm U Marijuana (THC) Screen 11/03/21 11/03/21 18:18 18:18 WBC RBC Hgb Hct POC Hct 46.0 MCV MCH MCHC RDW Plt Count MPV Immature Gran % (Auto) Neut % (Auto) Lymph % (Auto) [place] % (Auto) Eos % (Auto) Baso % (Auto) Lymph # (Auto) [place] # (Auto) Eos # (Auto) Baso # (Auto) Immature Gran # Absolute Neutrophils POC VBG pH 7.49 H POC VBG pCO2 at Temp 36.3 L POC VBG pO2 22 L POC VBG HCO3 27.9 POC VBG Total CO2 29.0 POC Venous O2 Sat 44.0 POC VBG Base Excess 5.0 H* VBG Lactic Acid 1.4 POC Sodium 137 POC Potassium 3.9 POC Chloride 103 POC Total CO2 28.0 POC BUN 20 POC Creatinine 0.6 POC Glucose 128 H POC WB Ioniz Calcium 1.14 L NT-Pro-B Natriuret Pep Procalcitonin Urine Color Urine Appearance Urine pH Ur Specific [place] Urine Protein Urine Glucose (UA) Urine Ketones Urine Occult Blood Urine Nitrate Urine Bilirubin Urine Urobilinogen Ur Leukocyte Esterase Urine RBC Urine WBC Ur Squamous Epith Cells Ur Transition Epith Cell Urine Bacteria Urine Mucus Ur Culture Indicated? Urine Opiates Screen Ur Opiates Confirm Ur Oxycodone Screen U Oxycod/Oxymor Confirm Urine Methadone Screen Ur Methadone Confirm Ur Barbiturates Screen Ur Barbiturate Confirm Ur Phencyclidine Scrn Urine PCP Confirm Ur Amphetamines Screen U Amphetamines Confirm U Benzodiazepines Scrn Ur Benzodiazepine, Qnt Urine Cocaine Screen Urine Cocaine Confirm U Cannabinoids Confirm U Marijuana (THC) Screen A/P Assessment and plan (1) Sepsis: Status: Acute (2) Pneumonia involving right lung: Status: Acute (3) UTI (urinary tract infection): Status: Acute (4) Osteoporosis: Status: Chronic Comment: 09/12/06 Bone Density--Spine T-score -3.5; Hip T-score -2.2. 03/28/13 Bone Density--Femoral neck T-score -2.2 (osteopenia); distal wrist T-score -2.7 (moderate osteoporosis) Qualifiers: Osteoporosis type: unspecified Presence of current pathological fracture: with current pathological fracture Encounter type: initial encounter Qualified Code(s): M80.00XA - Age-related osteoporosis with current pathological fracture, unspecified site, initial encounter for fracture (5) Depression with anxiety: Status: Acute Narrative A/P Narrative: Assessment and Plans: 1. Sepsis secondary to community acquired pneumonia and UTI: Inpatient med surg Serial lactic acid Procalcitonin Blood culture Urine culture cbc w/ auto diff in the morning to trend WBC s/p 2L IV fluid given in the ED, to be followed by [id number]/hr Rocepphin Zithromax Tylenol Toradol Robitussin DM DuoNEB NEB 2. Depression with anxiety: Sertraline Wellbutrin 3. Osteoporosis: Continue to monitor GI ppx: continue oral PPI from home regimen DVT ppx: Lovenox Code status: Full Prognosis: guarded Disposition: Inpatient med surg Time Spent With Patient Time: Total time spent is greater than 50% in coordination of care (as documented) at patient's floor/unit and/or counseling patient: Total time spent with greater than 50% in coordination of care (as documented) at patient's floor/unit and/or counseling patient:: 50 - 70 minutes
[2021-11-03] MEDS ORDERED: cefTRIAXone 1 GM in DEXTROSE 5% IN WATER 50 ML IV SCH (21:58)
[2021-11-03] MEDS ORDERED: AZITHROMYCIN 500 MG in DEXTROSE 5% IN WATER 250 ML IV SCH (21:58)
[2021-11-03] MEDS ORDERED: traZODone HCL 50 MG TABLET PO PRN (21:58)
[2021-11-03] MEDS ORDERED: cefTRIAXone 1 GM VIAL ONE (22:14)
[2021-11-03] MEDS: 0.9 % SODIUM CHLORIDE 1,000 ML IV SCH (22:39)
[2021-11-03] MEDS: 0.9 % SODIUM CHLORIDE 10 ML SYRINGE IV SCH (22:39)
[2021-11-04] MEDS ORDERED: ACETAMINOPHEN 325 MG TABLET PO ONE (03:49)
[2021-11-04] MEDS ORDERED: ONDANSETRON 4 MG/2 ML VIAL ONE (03:49)
[2021-11-04] MEDS: ACETAMINOPHEN 325 MG TABLET PO PRN ×3 (03:52→20:25)
[2021-11-04] MEDS: ONDANSETRON 4 MG/2 ML VIAL IV PRN (03:52)
[2021-11-04] MEDS: 0.9 % SODIUM CHLORIDE 10 ML SYRINGE IV SCH ×3 (05:42→22:52)
[2021-11-04 06:52] LABS: Basophils # (Auto) 0.03 K/mcL (0.00-0.30); Basophils % (Auto) 0.3 % (0.0-2.0); Eosinophils # (Auto) 0.01 K/mcL (0.00-0.70); Eosinophils % (Auto) 0.1 % (0.0-7.0); Hematocrit 36.2 % (34.1-44.9); Hemoglobin 11.5 g/dL (11.2-15.7); Lymphocytes # (Auto) 1.15 K/mcL (1.50-4.80); Lymphocytes % (Auto) 11.1 % (15.5-49.0); Mean Cell Volume 96.3 fL (80.0-100.0); Mean Corpuscular HGB Conc 31.8 g/dL (31.0-36.0); Mean Platelet Volume 9.8 fL (7.4-10.4); Monocytes # (Auto) 0.47 K/mcL (0.10-0.90); Monocytes % (Auto) 4.5 % (1.0-12.0); Neutrophils % (Auto) 83.5 % (38.0-78.0); Platelet Count 269 K/mcL (140-440); RBC 3.76 M/mcL (3.59-5.38); WBC 10.4 K/mcL (4.5-11.0)
[2021-11-04] MEDS: MONTELUKAST 10 MG TABLET PO SCH ×2 (06:57→20:25)
[2021-11-04 07:19] LABS: ALT/SGPT 28 U/L (<40); AST/SGOT 19 U/L (<32); Albumin 1.9 gm/dL (3.2-5.2); Albumin/Globulin Ratio 0.5 (1.0-2.3); Alkaline Phosphatase 177 U/L (39-117); Bilirubin,Total 0.5 mg/dL (0.1-1.0); Blood Urea Nitrogen 14 mg/dL (8-23); Calcium 8.5 mg/dL (8.6-10.4); Carbon Dioxide 20 mmol/L (22-30); Chloride 106 mmol/L (96-108); Globulin 3.7 gm/dL (2.2-3.7); Glomerular Filtration Rate 92; Glucose 103 mg/dL (70-105); Phosphorous 3.4 mg/dL (2.5-4.5)
[2021-11-04] MEDS: KETOROLAC 30 MG/ML VIAL IV PRN ×3 (08:19→22:57)
[2021-11-04] MEDS: 0.9 % SODIUM CHLORIDE 1,000 ML IV SCH ×4 (08:21→22:52)
[2021-11-04] MEDS: cefTRIAXone 1 GM VIAL IV SCH (09:11)
[2021-11-04] MEDS: ENOXAPARIN 40 MG/0.4 ML SYRINGE SQ SCH (09:11)
[2021-11-04] MEDS: DOCUSATE SODIUM 100 MG CAPSULE PO SCH ×2 (09:12→20:25)
[2021-11-04] MEDS: SERTRALINE 100 MG TABLET PO SCH (09:12)
[2021-11-04] MEDS: buPROPion 150 MG TAB.SR.12H PO SCH (09:12)
[2021-11-04] MEDS: OMEPRAZOLE 20 MG CAPSULE PO SCH (09:12)
--- NOTE | 2021-11-04 11:19 | Internal Med Progress Note ---
SUBJECTIVE Subjective Patient information: Note initiated : 11/04/21 at 11:15 am Service Date, if different from initiated Date: [] Patient: Farhat Milian a 76 y/o F admitted on 11/03/21 for Fever, confusion. Chief Complaint: [] Interval history: Ms. Milian is a 76 year old F history of osteoporosis, depression with anxiety, presenting with 5-day history of fever, chills, diaphoresis, shortness of breath, productive cough with clear sputum productions. She recently returned at from a 3 weeks [place] trip. Over the past 5 days, she is experiencing fever, chills, diaphoresis, shortness of breath, productive cough with clear sputum. She is also committing of substernal chest pain whenever she coughs. She is also committing of respiratory wheezings. She is also coming off general body weakness. Vital signs at ED presentations significant for fever with T- max 40.3 Celsius, and tachypnea with rate of breathing up to the low 30s breaths per minutes. Oxygen saturations in the high 90s on room air. Labs significant for lack of leukocytosis with WBC 10.4 but with significant left shift. Lactic acid 0.7, procalcitonin 0.35. COVID-negative. UA suggests presence of urinary tract infections. Chest x-ray also showing infiltrate in the right lower lobe suggestive of pneumonia. 11/04: Patient is continue to have low-grade fever with T-max 37.7 C overnight. Patient is currently on 1 L/min of oxygen. Patient is complaining of shortness of breath. She is complaining of none productive cough. She is also complaining of the respiratory wheezings. She is also commenting of subjective fever, shaking chills, and diaphoresis. She denies any anxiety. Pending COVID [place] test. Continue IV fluid, IV empiric antibiotics Rocephin and Zithromax. Continue isolation until negative COVID [place] test. Continue to titrate supplemental oxygen's in order to keep oxygen saturations above 92%. Constitutional Vitals: Vital Signs Temp Pulse Resp BP Pulse Ox O2 Del Method O2 Flow Rate 36.1 C L 76 20 137/72 97 1 11/04/21 07:08 11/04/21 07:08 11/04/21 07:08 11/04/21 07:08 11/04/21 08:00 11/04/21 08:00 11/04/21 08:00 Period Temp Pulse Resp BP Sys/Zarco Pulse Ox O2 Del Method O2 Flow Rate Last 24 Hr 36.1 C-40.3 C 76-98 20-32 110-156/55-110 92-100 Nasal Cannula- Room Air 1-1 Intake and Output 11/03/21 11/04/21 11/04/21 21:59 05:59 13:59 Intake Total 5130 906 3485 Output Total 250 200 Balance 1940 100 800 Weight 91.2 kg 91.217 kg Intake & Output: Intake & Output 11/03/21 11/04/21 11/04/21 21:59 05:59 13:59 Intake Total 1162 241 8110 Output Total 250 200 Balance 1940 100 800 Weight 91.2 kg 91.217 kg Intake: IV 2835 834 0878 Sodium Chloride 0.9% 1,000 ml @ 1640 1000 100 mls/hr IV .Q10H [facility] Rx#: [id number] Zithromax 500 mg In Dextrose 5% 250 in Water 250 ml @ 250 mls/hr IV Q24H [facility] Rx#:[id number] Zosyn 3.375 gm In Dextrose 5% 50 in Water 50 ml @ 100 mls/hr IV ONCE ONE Rx#:[id number] Vancomycin 1,000 mg In Sodium 250 Chloride 0.9% 250 ml @ 250 mls/ hr IV ONCE ONE Rx#:[id number] Oral 100 Output: Urine Catheter Amount 250 Void Amount 200 Other: Urine Appearance Clear Clear Clear Uretheral (Chavez) Clear Clear Urine Color Light Rossana Dark Rossana Dark Rossana Uretheral (Chavez) Light Rossana Dark Rossana Urine Odor Uretheral (Chavez) Strong # Voids 1 General appearance: cooperative, no acute distress and obese Head Head exam: Present atraumatic and normal inspection Eye Eye exam: Present normal appearance ENT ENT exam: Present mucous membranes moist, normal exam and normal external ear exam Additional comments: Nasal cannula in place Neck Neck exam: Present normal inspection Respiratory Respiratory exam: Present decreased breath sounds and wheezes Cardiovascular Cardiovascular exam: Present normal rate and rhythm GI/Abdominal GI/Abdominal exam: Present normal bowel sounds Back Exam Back exam: Present normal inspection Neurological Exam Neurological exam: Present alert and oriented X3 Skin Skin exam: Present intact and warm OBJ DATA Labs CBC & Chem 7: 11/04/21 06:11 11/04/21 06:10 Labs: Abnormal Lab Results 11/04/21 11/04/21 11/03/21 06:11 06:10 20:13 MPV Neut % (Auto) 83.5 H Lymph % (Auto) 11.1 L Lymph # (Auto) 1.15 L Absolute Neutrophils 8.71 H POC VBG pH 7.49 H POC VBG pCO2 at Temp 28.9 L POC VBG pO2 51 H POC VBG HCO3 21.9 L POC VBG Total CO2 23.0 L POC Venous O2 Sat 89.0 H POC VBG Base Excess Potassium 3.2 L Carbon Dioxide 20 L Creatinine 0.5 L POC Glucose Calcium 8.5 L POC WB Ioniz Calcium Alkaline Phosphatase 177 H NT-Pro-B Natriuret Pep Total Protein 5.6 L Albumin 1.9 L Albumin/Globulin Ratio 0.5 L Procalcitonin Urine Appearance Urine Protein Urine Glucose (UA) Urine Ketones Urine Occult Blood Urine Nitrate Urine Bilirubin Urine Urobilinogen Urine RBC Urine WBC Urine Bacteria Urine Mucus 11/03/21 11/03/21 11/03/21 19:30 19:11 18:20 MPV Neut % (Auto) Lymph % (Auto) Lymph # (Auto) Absolute Neutrophils POC VBG pH POC VBG pCO2 at Temp POC VBG pO2 POC VBG HCO3 POC VBG Total CO2 POC Venous O2 Sat POC VBG Base Excess Potassium Carbon Dioxide Creatinine POC Glucose Calcium POC WB Ioniz Calcium Alkaline Phosphatase NT-Pro-B Natriuret Pep 1212.0 H Total Protein Albumin Albumin/Globulin Ratio Procalcitonin 0.35 H Urine Appearance Slightly cloudy A Urine Protein >=300 mg/dl A Urine Glucose (UA) 100 mg/dl A Urine Ketones 40 mg/dl A Urine Occult Blood Moderate A Urine Nitrate Positive A Urine Bilirubin Moderate A Urine Urobilinogen >=8.0 e.u./dl A Urine RBC 8 H Urine WBC 17 H Urine Bacteria Many A Urine Mucus Many A 11/03/21 11/03/21 11/03/21 18:20 18:18 18:18 MPV 11.7 H Neut % (Auto) 90.4 H Lymph % (Auto) 6.8 L Lymph # (Auto) 0.71 L Absolute Neutrophils 9.41 H POC VBG pH 7.49 H POC VBG pCO2 at Temp 36.3 L POC VBG pO2 22 L POC VBG HCO3 POC VBG Total CO2 POC Venous O2 Sat POC VBG Base Excess 5.0 H* Potassium Carbon Dioxide Creatinine POC Glucose 128 H Calcium POC WB Ioniz Calcium 1.14 L Alkaline Phosphatase NT-Pro-B Natriuret Pep Total Protein Albumin Albumin/Globulin Ratio Procalcitonin Urine Appearance Urine Protein Urine Glucose (UA) Urine Ketones Urine Occult Blood Urine Nitrate Urine Bilirubin Urine Urobilinogen Urine RBC Urine WBC Urine Bacteria Urine Mucus Meds: Medications Acetaminophen (Acetaminophen 325 Mg Tablet) 650 mg PO Q6HP PRN; Protocol PRN Reason: Per Pain Protocol/Fever > 101 Last Admin: 11/04/21 03:52 Dose: 650 mg Albuterol Sulfate (Albuterol Sulfate 200 Puff Inhaler) 2 puff INH .Q4-6H PRN PRN Reason: bronchospasm Albuterol/Ipratropium (Ipratropium/Albuterol 3 Ml Ampul.Neb) 3 ml NEB Q4HRT PRN PRN Reason: Wheezing Bupropion HCl (Bupropion 150 Mg Tab.Sr.12h) 150 mg PO DAILY [facility] Last Admin: 11/04/21 09:12 Dose: 150 mg Ceftriaxone Sodium (Ceftriaxone 1 Gm Vial) 1 gm IV Q24H [facility] Last Admin: 11/04/21 09:11 Dose: 1 gm Docusate Sodium (Docusate Sodium 100 Mg Capsule) 100 mg PO BID [facility] Last Admin: 11/04/21 09:12 Dose: 100 mg Enoxaparin Sodium (Enoxaparin 40 Mg/0.4 Ml Syringe) 40 mg SQ DAILY [facility] Last Admin: 11/04/21 09:11 Dose: 40 mg Guaifenesin (Guaifenesin/Dextromethorphan Oral Genesis) 10 ml PO Q4HP PRN PRN Reason: Cough Sodium Chloride (Sodium Chloride 0.9%) 1,000 mls @ 100 mls/hr IV .Q10H [facility] Last Admin: 11/04/21 10:35 Dose: 100 mls/hr Azithromycin 500 mg/ Dextrose 250 mls @ 250 mls/hr IV Q24H [facility] Stop: 11/05/21 13:59 Ketorolac Tromethamine (Ketorolac 30 Mg/Ml Vial) 30 mg IV Q6HP PRN; Protocol PRN Reason: Per Pain Protocol Stop: 11/05/21 21:30 Last Admin: 11/04/21 08:19 Dose: 30 mg Montelukast Sodium (Montelukast 10 Mg Tablet) 10 mg PO [facility] Last Admin: 11/04/21 06:57 Dose: 10 mg Omeprazole (Omeprazole 20 Mg Capsule) 40 mg PO QDAY [facility] Last Admin: 11/04/21 09:12 Dose: 40 mg Ondansetron HCl (Ondansetron 4 Mg/2 Ml Vial) 4 mg IV Q6HP PRN PRN Reason: Nausea And Vomiting Last Admin: 11/04/21 03:52 Dose: 4 mg Senna (Sennosides 1 Tablet) 2 tab PO [facility] Sertraline HCl (Sertraline 100 Mg Tablet) 100 mg PO QDAY [facility] Last Admin: 11/04/21 09:12 Dose: 100 mg Sodium Chloride (0.9 % Sodium Chloride 10 Ml Syringe) 10 ml IV Q8 [facility] Last Admin: 11/04/21 05:42 Dose: Not Given Trazodone HCl (Trazodone Hcl 50 Mg Tablet) 25 mg PO HSP PRN PRN Reason: Insomnia A/P Assessment and plan (1) Sepsis: Status: Acute (2) Pneumonia involving right lung: Status: Acute (3) UTI (urinary tract infection): Status: Acute (4) Osteoporosis: Status: Chronic Comment: 09/12/06 Bone Density--Spine T-score -3.5; Hip T-score -2.2. 03/28/13 Bone Density--Femoral neck T-score -2.2 (osteopenia); distal wrist T-score -2.7 (moderate osteoporosis) Qualifiers: Osteoporosis type: unspecified Presence of current pathological fracture: with current pathological fracture Encounter type: initial encounter Qualified Code(s): M80.00XA - Age-related osteoporosis with current pathological fracture, unspecified site, initial encounter for fracture (5) Depression with anxiety: Status: Acute Narrative A/P Narrative: Assessment and Plans: 1. Sepsis secondary to community acquired pneumonia and UTI: Inpatient med surg Serial lactic acid Procalcitonin Blood culture, no growth to date Urine culture, no growth to date cbc w/ auto diff in the morning to trend WBC s/p 2L IV fluid given in the ED, to be followed by NS@100cc/hr Rocepphin Zithromax Tylenol Toradol Robitussin DM DuoNEB NEB 2. Depression with anxiety: Sertraline Wellbutrin 3. Osteoporosis: Continue to monitor GI ppx: continue oral PPI from home regimen DVT ppx: Lovenox Code status: DNR Prognosis: guarded Disposition: Inpatient med surg Time Spent With Patient Time: Total time spent is greater than 50% in coordination of care (as documented) at patient's floor/unit and/or counseling patient: Total time spent with greater than 50% in coordination of care (as documented) at patient's floor/unit and/or counseling patient:: 35 - 50 minutes QUALITY Stroke Symptom Onset Unknown: No VTE Deep Vein Thrombosis/Pulmonary Embolism Present on Admission: No
[2021-11-04] MEDS: AZITHROMYCIN 500 MG in DEXTROSE 5% IN WATER 250 ML IV SCH (12:51)
[2021-11-04] MEDS: IPRATROPIUM/ALBUTEROL 3 ML AMPUL.NEB NEB PRN ×2 (15:14→20:52)
[2021-11-04] MEDS: guaiFENesin/DEXTROMETHORPHAN ORAL SOL PO PRN ×2 (16:12→20:41)
[2021-11-04] MEDS: SENNOSIDES 1 TABLET PO SCH (20:25)
[2021-11-05] MEDS: 0.9 % SODIUM CHLORIDE 1,000 ML IV SCH (02:07)
[2021-11-05] MEDS: ACETAMINOPHEN 325 MG TABLET PO PRN ×3 (04:14→21:55)
[2021-11-05] MEDS: guaiFENesin/DEXTROMETHORPHAN ORAL SOL PO PRN ×3 (04:49→15:15)
[2021-11-05] MEDS: 0.9 % SODIUM CHLORIDE 10 ML SYRINGE IV SCH ×3 (06:01→22:07)
[2021-11-05 06:16] LABS: Basophils # (Auto) 0.02 K/mcL (0.00-0.30); Basophils % (Auto) 0.2 % (0.0-2.0); Eosinophils # (Auto) 0.05 K/mcL (0.00-0.70); Eosinophils % (Auto) 0.5 % (0.0-7.0); Hematocrit 36.8 % (34.1-44.9); Hemoglobin 11.9 g/dL (11.2-15.7); Lymphocytes # (Auto) 0.95 K/mcL (1.50-4.80); Lymphocytes % (Auto) 9.8 % (15.5-49.0); Mean Cell Volume 94.1 fL (80.0-100.0); Mean Corpuscular HGB Conc 32.3 g/dL (31.0-36.0); Mean Platelet Volume 9.8 fL (7.4-10.4); Monocytes # (Auto) 0.37 K/mcL (0.10-0.90); Monocytes % (Auto) 3.8 % (1.0-12.0); Neutrophils % (Auto) 84.7 % (38.0-78.0); Platelet Count 263 K/mcL (140-440); RBC 3.91 M/mcL (3.59-5.38); Red Cell Distribution Width 14.3 % (11.5-14.5); WBC 9.7 K/mcL (4.5-11.0)
[2021-11-05 06:38] LABS: ALT/SGPT 23 U/L (<40); AST/SGOT 22 U/L (<32); Albumin 2.2 gm/dL (3.2-5.2); Albumin/Globulin Ratio 0.6 (1.0-2.3); Alkaline Phosphatase 201 U/L (39-117); Bilirubin,Total 0.5 mg/dL (0.1-1.0); Blood Urea Nitrogen 8 mg/dL (8-23); Calcium 8.6 mg/dL (8.6-10.4); Carbon Dioxide 21 mmol/L (22-30); Chloride 105 mmol/L (96-108); Globulin 3.6 gm/dL (2.2-3.7); Glomerular Filtration Rate 92; Glucose 100 mg/dL (70-105)
[2021-11-05 06:39] LABS: Phosphorous 2.9 mg/dL (2.5-4.5)
--- NOTE | 2021-11-05 07:35 | XRay Report ---
HISTORY: Over load FINDINGS: Generalized alveolar opacities are present throughout both lungs. Pulmonary vessels are engorged and there is a small right-sided pleural effusion. The heart is mildly enlarged. The congestive heart failure has become worse since 11/03/21. The right hilum is larger today than it had been. Left hilum appears normal. There has been no other change. IMPRESSION: Worsening congestive heart failure Abnormally enlarged right hilum. Underlying adenopathy or tumor should be suspected. Interpreted and Authenticated by: Greg Barton 11/05/21
[2021-11-05] MEDS: KETOROLAC 30 MG/ML VIAL IV PRN ×3 (08:05→20:34)
[2021-11-05] MEDS: cefTRIAXone 1 GM VIAL IV SCH (08:06)
[2021-11-05] MEDS: ENOXAPARIN 40 MG/0.4 ML SYRINGE SQ SCH (08:06)
[2021-11-05] MEDS: SERTRALINE 100 MG TABLET PO SCH (08:07)
[2021-11-05] MEDS: OMEPRAZOLE 20 MG CAPSULE PO SCH (08:07)
[2021-11-05] MEDS: DOCUSATE SODIUM 100 MG CAPSULE PO SCH ×2 (08:07→20:34)
[2021-11-05] MEDS: buPROPion 150 MG TAB.SR.12H PO SCH (08:07)
[2021-11-05] MEDS ORDERED: hydrALAZINE 20 MG/ML VIAL IV PRN (08:26)
[2021-11-05] MEDS: FUROSEMIDE 40 MG/4 ML VIAL IV SCH ×2 (08:46→15:15)
[2021-11-05] MEDS ORDERED: POLYETHYLENE GLYCOL 3350 17 GM PACKET PO PRN (10:15)
[2021-11-05] MEDS ORDERED: LACTULOSE 20 GM/30 ML ORAL.SOL PO PRN (10:15)
--- NOTE | 2021-11-05 10:20 | Internal Med Progress Note ---
SUBJECTIVE Subjective Patient information: Note initiated : 11/05/21 at 10:16 am Service Date, if different from initiated Date: [] Patient: Farhat Milian a 76 y/o F admitted on 11/03/21 for Fever, confusion. Chief Complaint: [] Interval history: Ms. Milian is a 76 year old F history of osteoporosis, depression with anxiety, presenting with 5-day history of fever, chills, diaphoresis, shortness of breath, productive cough with clear sputum productions. She recently returned at from a 3 weeks [place] trip. Over the past 5 days, she is experiencing fever, chills, diaphoresis, shortness of breath, productive cough with clear sputum. She is also committing of substernal chest pain whenever she coughs. She is also committing of respiratory wheezings. She is also coming off general body weakness. Vital signs at ED presentations significant for fever with T- max 40.3 Celsius, and tachypnea with rate of breathing up to the low 30s breaths per minutes. Oxygen saturations in the high 90s on room air. Labs significant for lack of leukocytosis with WBC 10.4 but with significant left shift. Lactic acid 0.7, procalcitonin 0.35. COVID-negative. UA suggests presence of urinary tract infections. Chest x-ray also showing infiltrate in the right lower lobe suggestive of pneumonia. 11/04: Patient is continue to have low-grade fever with T-max 37.7 C overnight. Patient is currently on 1 L/min of oxygen. Patient is complaining of shortness of breath. She is complaining of none productive cough. She is also complaining of the respiratory wheezings. She is also commenting of subjective fever, shaking chills, and diaphoresis. She denies any anxiety. Pending COVID [place] test. Continue IV fluid, IV empiric antibiotics Rocephin and Zithromax. Continue isolation until negative COVID [place] test. Continue to titrate supplemental oxygen's in order to keep oxygen saturations above 92%. 11/05: COVID pending for negative. Afebrile overnight. Cultures no growth today. Patient is currently on 2 L/min of oxygen. Patient is coming of shortness of breath. She is coming of nonproductive cough. She is coming of constipations with abdominal distention's. She is complaining of general body swelling. Saline lock. Lasix 40 Mg IV twice daily. We will recheck serum potassium level at this afternoon. Continue empiric antibiotics Rocephin and Zithromax for pneumonia. Continue to titrate supplemental oxygen's in order to keep oxygen saturations above 92%. Colace/Senna/Miralax/Milk of Mag/Lactulose for constipation. Constitutional Vitals: Vital Signs Temp Pulse Resp BP Pulse Ox O2 Del Method O2 Flow Rate 37.1 C 82 18 156/84 93 1 11/05/21 07:20 11/05/21 07:20 11/05/21 07:20 11/05/21 09:17 11/05/21 07:20 11/05/21 07:20 11/05/21 07:20 Period Temp Pulse Resp BP Sys/Zarco Pulse Ox O2 Del Method O2 Flow Rate Last 24 Hr 36.0 C-37.1 C 78-86 18-24 133-181/67-89 92-95 Nasal Cannula- Room Air 0.5-1 Intake and Output 11/04/21 11/05/21 11/05/21 21:59 05:59 13:59 Intake Total 6544 894 0279 Output Total 2 2 950 Balance 1358 198 50 Weight 93.553 kg Intake & Output: Intake & Output 11/04/21 11/05/21 11/05/21 21:59 05:59 13:59 Intake Total 1793 312 7672 Output Total 2 2 950 Balance 1358 198 50 Weight 93.553 kg Intake: IV 1000 1000 Sodium Chloride 0.9% 1,000 ml @ 1000 1000 100 mls/hr IV .Q10H [facility] Rx#: [id number] Oral 360 200 Output: Urine Catheter Amount 950 # of times incontinent of urine 2 2 Other: Meal Dinner Percent of Meal Consumed 75% Feeding Ability Independent Urine Appearance Clear Uretheral (Chavez) Clear Urine Color Dark Rossana Bright Yellow Uretheral (Chavez) Bright Yellow Urine Odor Normal Normal Uretheral (Chavez) Normal Head Head exam: Present atraumatic and normal inspection Eye Eye exam: Present normal appearance ENT ENT exam: Present mucous membranes moist, normal exam and normal external ear exam Additional comments: Nasal cannula in place Neck Neck exam: Present normal inspection Respiratory Respiratory exam: Present decreased breath sounds and rhonchi Cardiovascular Cardiovascular exam: Present normal rate and rhythm GI/Abdominal GI/Abdominal exam: Present normal bowel sounds Extremities Exam Extremities exam: Present pedal edema Back Exam Back exam: Present normal inspection Neurological Exam Neurological exam: Present alert and oriented X3 Skin Skin exam: Present intact and warm OBJ DATA Labs CBC & Chem 7: 11/05/21 05:30 11/05/21 05:30 Labs: Abnormal Lab Results 11/05/21 11/05/21 11/04/21 05:30 05:30 06:11 MPV Immature Gran % (Auto) 1.0 H Neut % (Auto) 84.7 H 83.5 H Lymph % (Auto) 9.8 L 11.1 L Lymph # (Auto) 0.95 L 1.15 L Immature Gran # 0.10 H Absolute Neutrophils 8.31 H 8.71 H POC VBG pH POC VBG pCO2 at Temp POC VBG pO2 POC VBG HCO3 POC VBG Total CO2 POC Venous O2 Sat POC VBG Base Excess Potassium Carbon Dioxide 21 L Creatinine 0.5 L POC Glucose Calcium POC WB Ioniz Calcium Alkaline Phosphatase 201 H NT-Pro-B Natriuret Pep Total Protein 5.8 L Albumin 2.2 L Albumin/Globulin Ratio 0.6 L Procalcitonin Urine Appearance Urine Protein Urine Glucose (UA) Urine Ketones Urine Occult Blood Urine Nitrate Urine Bilirubin Urine Urobilinogen Urine RBC Urine WBC Urine Bacteria Urine Mucus 11/04/21 11/03/21 11/03/21 06:10 20:13 19:30 MPV Immature Gran % (Auto) Neut % (Auto) Lymph % (Auto) Lymph # (Auto) Immature Gran # Absolute Neutrophils POC VBG pH 7.49 H POC VBG pCO2 at Temp 28.9 L POC VBG pO2 51 H POC VBG HCO3 21.9 L POC VBG Total CO2 23.0 L POC Venous O2 Sat 89.0 H POC VBG Base Excess Potassium 3.2 L Carbon Dioxide 20 L Creatinine 0.5 L POC Glucose Calcium 8.5 L POC WB Ioniz Calcium Alkaline Phosphatase 177 H NT-Pro-B Natriuret Pep Total Protein 5.6 L Albumin 1.9 L Albumin/Globulin Ratio 0.5 L Procalcitonin Urine Appearance Slightly cloudy A Urine Protein >=300 mg/dl A Urine Glucose (UA) 100 mg/dl A Urine Ketones 40 mg/dl A Urine Occult Blood Moderate A Urine Nitrate Positive A Urine Bilirubin Moderate A Urine Urobilinogen >=8.0 e.u./dl A Urine RBC 8 H Urine WBC 17 H Urine Bacteria Many A Urine Mucus Many A 11/03/21 11/03/21 11/03/21 19:11 18:20 18:20 MPV 11.7 H Immature Gran % (Auto) Neut % (Auto) 90.4 H Lymph % (Auto) 6.8 L Lymph # (Auto) 0.71 L Immature Gran # Absolute Neutrophils 9.41 H POC VBG pH POC VBG pCO2 at Temp POC VBG pO2 POC VBG HCO3 POC VBG Total CO2 POC Venous O2 Sat POC VBG Base Excess Potassium Carbon Dioxide Creatinine POC Glucose Calcium POC WB Ioniz Calcium Alkaline Phosphatase NT-Pro-B Natriuret Pep 1212.0 H Total Protein Albumin Albumin/Globulin Ratio Procalcitonin 0.35 H Urine Appearance Urine Protein Urine Glucose (UA) Urine Ketones Urine Occult Blood Urine Nitrate Urine Bilirubin Urine Urobilinogen Urine RBC Urine WBC Urine Bacteria Urine Mucus 11/03/21 11/03/21 18:18 18:18 MPV Immature Gran % (Auto) Neut % (Auto) Lymph % (Auto) Lymph # (Auto) Immature Gran # Absolute Neutrophils POC VBG pH 7.49 H POC VBG pCO2 at Temp 36.3 L POC VBG pO2 22 L POC VBG HCO3 POC VBG Total CO2 POC Venous O2 Sat POC VBG Base Excess 5.0 H* Potassium Carbon Dioxide Creatinine POC Glucose 128 H Calcium POC WB Ioniz Calcium 1.14 L Alkaline Phosphatase NT-Pro-B Natriuret Pep Total Protein Albumin Albumin/Globulin Ratio Procalcitonin Urine Appearance Urine Protein Urine Glucose (UA) Urine Ketones Urine Occult Blood Urine Nitrate Urine Bilirubin Urine Urobilinogen Urine RBC Urine WBC Urine Bacteria Urine Mucus Meds: Medications Acetaminophen (Acetaminophen 325 Mg Tablet) 650 mg PO Q6HP PRN; Protocol PRN Reason: Per Pain Protocol/Fever > 101 Last Admin: 11/05/21 04:14 Dose: 650 mg Albuterol Sulfate (Albuterol Sulfate 200 Puff Inhaler) 2 puff INH .Q4-6H PRN PRN Reason: bronchospasm Albuterol/Ipratropium (Ipratropium/Albuterol 3 Ml Ampul.Neb) 3 ml NEB Q4HRT PRN PRN Reason: Wheezing Last Admin: 11/04/21 20:52 Dose: 3 ml Bupropion HCl (Bupropion 150 Mg Tab.Sr.12h) 150 mg PO DAILY [facility] Last Admin: 11/05/21 08:07 Dose: 150 mg Ceftriaxone Sodium (Ceftriaxone 1 Gm Vial) 1 gm IV Q24H [facility] Last Admin: 11/05/21 08:06 Dose: 1 gm Docusate Sodium (Docusate Sodium 100 Mg Capsule) 100 mg PO BID [facility] Last Admin: 11/05/21 08:07 Dose: 100 mg Enoxaparin Sodium (Enoxaparin 40 Mg/0.4 Ml Syringe) 40 mg SQ DAILY [facility] Last Admin: 11/05/21 08:06 Dose: 40 mg Furosemide (Furosemide 40 Mg/4 Ml Vial) 40 mg IV BIDD [facility] Last Admin: 11/05/21 08:46 Dose: 40 mg Guaifenesin (Guaifenesin/Dextromethorphan Oral Genesis) 10 ml PO Q4HP PRN PRN Reason: Cough Last Admin: 11/05/21 04:49 Dose: 10 ml Hydralazine HCl (Hydralazine 20 Mg/Ml Vial) 10 mg IV Q4-6HP PRN PRN Reason: Hypertension Azithromycin 500 mg/ Dextrose 250 mls @ 250 mls/hr IV Q24H [facility] Stop: 11/05/21 13:59 Last Infusion: 11/04/21 13:51 Dose: Infused Ketorolac Tromethamine (Ketorolac 30 Mg/Ml Vial) 30 mg IV Q6HP PRN; Protocol PRN Reason: Per Pain Protocol Stop: 11/05/21 21:30 Last Admin: 11/05/21 08:05 Dose: 30 mg Lidocaine (Lidocaine Patch) 1 patch TOPICAL DAILY@1000 [facility] Montelukast Sodium (Montelukast 10 Mg Tablet) 10 mg PO HS [facility] Last Admin: 11/04/21 20:25 Dose: 10 mg Omeprazole (Omeprazole 20 Mg Capsule) 40 mg PO QDAY [facility] Last Admin: 11/05/21 08:07 Dose: 40 mg Ondansetron HCl (Ondansetron 4 Mg/2 Ml Vial) 4 mg IV Q6HP PRN PRN Reason: Nausea And Vomiting Last Admin: 11/04/21 03:52 Dose: 4 mg Senna (Sennosides 1 Tablet) 2 tab PO [facility] Last Admin: 11/04/21 20:25 Dose: 2 tab Sertraline HCl (Sertraline 100 Mg Tablet) 100 mg PO QDAY [facility] Last Admin: 11/05/21 08:07 Dose: 100 mg Sodium Chloride (0.9 % Sodium Chloride 10 Ml Syringe) 10 ml IV Q8 [facility] Last Admin: 11/05/21 06:01 Dose: Not Given Trazodone HCl (Trazodone Hcl 50 Mg Tablet) 25 mg PO HSP PRN PRN Reason: Insomnia Last Admin: 11/04/21 21:47 Dose: 25 mg A/P Assessment and plan (1) Sepsis: Status: Acute (2) Pneumonia involving right lung: Status: Acute (3) UTI (urinary tract infection): Status: Acute (4) Osteoporosis: Status: Chronic Comment: 09/12/06 Bone Density--Spine T-score -3.5; Hip T-score -2.2. 03/28/13 Bone Density--Femoral neck T-score -2.2 (osteopenia); distal wrist T-score -2.7 (moderate osteoporosis) Qualifiers: Osteoporosis type: unspecified Presence of current pathological fracture: with current pathological fracture Encounter type: initial encounter Qualified Code(s): M80.00XA - Age-related osteoporosis with current pathological fracture, unspecified site, initial encounter for fracture (5) Depression with anxiety: Status: Acute Narrative A/P Narrative: Assessment and Plans: 1. Sepsis secondary to community acquired pneumonia and UTI: Inpatient med surg Serial lactic acid Procalcitonin Blood culture, no growth to date Urine culture, no growth to date cbc w/ auto diff in the morning to trend WBC Saline lock with Lasix 40mg IV BID, repeat serum potassium level this afternoon Rocepphin Zithromax Tylenol Toradol Robitussin DM DuoNEB NEB 2. Depression with anxiety: Sertraline Wellbutrin 3. Osteoporosis: Continue to monitor 4. Constipation: Colace Senna Milk of Mag Miralax Lactulose GI ppx: continue oral PPI from home regimen DVT ppx: Lovenox Code status: DNR Prognosis: guarded Disposition: Inpatient med surg Time Spent With Patient Time: Total time spent is greater than 50% in coordination of care (as documented) at patient's floor/unit and/or counseling patient: Total time spent with greater than 50% in coordination of care (as documented) at patient's floor/unit and/or counseling patient:: 35 - 50 minutes QUALITY Stroke Symptom Onset Unknown: No VTE Deep Vein Thrombosis/Pulmonary Embolism Present on Admission: No
[2021-11-05] MEDS: LIDOCAINE PATCH TOPICAL SCH (10:39)
[2021-11-05] MEDS: AZITHROMYCIN 500 MG in DEXTROSE 5% IN WATER 250 ML IV SCH (12:41)
--- NOTE | 2021-11-05 13:57 | EKG ---
[facility] Test Date: 2021-11-03 Pat Name: Farhat Milian Department: ED Room: Gender: Female File Clerk: HS : [id number] Requested By: Jose C Kathleen Order Number: [id number] Reading MD: Matthew Pena Measurements Intervals [place] Rate: 96 P: 7 AR: 168 QRS: -10 QRSD: 79 T: 3 QT: 336 QTc: 425 Interpretive Statements Sinus rhythm Borderline T abnormalities, anterior leads Baseline wander in lead(s) II,III,aVR,aVF Electronically Signed On 11-05-2021 13:56:57 PDT by Matthew Pena /store/M0/[id number]/ecg/[id number]
[2021-11-05] MEDS: IPRATROPIUM/ALBUTEROL 3 ML AMPUL.NEB NEB PRN (14:57)
[2021-11-05] MEDS ORDERED: POTASSIUM CHLORIDE 40 MEQ in DEXTROSE 5% IN WATER 500 ML IV ONE (16:15)
[2021-11-05] MEDS: SENNOSIDES 1 TABLET PO SCH (20:34)
[2021-11-05] MEDS: MONTELUKAST 10 MG TABLET PO SCH (20:34)
[2021-11-06] MEDS: 0.9 % SODIUM CHLORIDE 10 ML SYRINGE IV SCH ×2 (05:46→16:21)
[2021-11-06 06:23] LABS: Basophils # (Auto) 0.05 K/mcL (0.00-0.30); Basophils % (Auto) 0.6 % (0.0-2.0); Eosinophils # (Auto) 0.11 K/mcL (0.00-0.70); Eosinophils % (Auto) 1.3 % (0.0-7.0); Hematocrit 38.3 % (34.1-44.9); Hemoglobin 12.5 g/dL (11.2-15.7); Lymphocytes # (Auto) 1.56 K/mcL (1.50-4.80); Mean Cell Volume 93.6 fL (80.0-100.0); Mean Corpuscular HGB Conc 32.6 g/dL (31.0-36.0); Mean Platelet Volume 10.2 fL (7.4-10.4); Monocytes # (Auto) 0.44 K/mcL (0.10-0.90); Monocytes % (Auto) 5.4 % (1.0-12.0); Neutrophils % (Auto) 71.9 % (38.0-78.0); Platelet Count 261 K/mcL (140-440); RBC 4.09 M/mcL (3.59-5.38); Red Cell Distribution Width 14.2 % (11.5-14.5); WBC 8.2 K/mcL (4.5-11.0)
[2021-11-06 06:36] LABS: ALT/SGPT 22 U/L (<40); AST/SGOT 26 U/L (<32); Albumin 2.1 gm/dL (3.2-5.2); Albumin/Globulin Ratio 0.5 (1.0-2.3); Alkaline Phosphatase 230 U/L (39-117); Bilirubin,Total 0.5 mg/dL (0.1-1.0); Blood Urea Nitrogen 8 mg/dL (8-23); Carbon Dioxide 27 mmol/L (22-30); Chloride 95 mmol/L (96-108); Globulin 4.1 gm/dL (2.2-3.7); Glomerular Filtration Rate 92; Glucose 97 mg/dL (70-105); Phosphorous 2.8 mg/dL (2.5-4.5)
[2021-11-06] MEDS: FUROSEMIDE 40 MG/4 ML VIAL IV SCH (09:14)
[2021-11-06] MEDS: cefTRIAXone 1 GM VIAL IV SCH (09:14)
[2021-11-06] MEDS: POTASSIUM CHLORIDE 20 MEQ TABLET PO SCH ×2 (09:14→18:30)
[2021-11-06] MEDS: SERTRALINE 100 MG TABLET PO SCH (09:15)
[2021-11-06] MEDS: buPROPion 150 MG TAB.SR.12H PO SCH (09:15)
[2021-11-06] MEDS: ENOXAPARIN 40 MG/0.4 ML SYRINGE SQ SCH (09:15)
[2021-11-06] MEDS: DOCUSATE SODIUM 100 MG CAPSULE PO SCH ×2 (09:15→20:11)
[2021-11-06] MEDS: OMEPRAZOLE 20 MG CAPSULE PO SCH (09:26)
--- NOTE | 2021-11-06 11:03 | Internal Med Progress Note ---
SUBJECTIVE Subjective Patient information: Note initiated : 11/06/21 at 10:58 am Service Date, if different from initiated Date: [] Patient: Farhat Milian a 76 y/o F admitted on 11/03/21 for Fever, confusion. Chief Complaint: [] Interval history: Ms. Milian is a 76 year old F history of osteoporosis, depression with anxiety, presenting with 5-day history of fever, chills, diaphoresis, shortness of breath, productive cough with clear sputum productions. She recently returned at from a 3 weeks [place] trip. Over the past 5 days, she is experiencing fever, chills, diaphoresis, shortness of breath, productive cough with clear sputum. She is also committing of substernal chest pain whenever she coughs. She is also committing of respiratory wheezings. She is also coming off general body weakness. Vital signs at ED presentations significant for fever with T- max 40.3 Celsius, and tachypnea with rate of breathing up to the low 30s breaths per minutes. Oxygen saturations in the high 90s on room air. Labs significant for lack of leukocytosis with WBC 10.4 but with significant left shift. Lactic acid 0.7, procalcitonin 0.35. COVID-negative. UA suggests presence of urinary tract infections. Chest x-ray also showing infiltrate in the right lower lobe suggestive of pneumonia. 11/04: Patient is continue to have low-grade fever with T-max 37.7 C overnight. Patient is currently on 1 L/min of oxygen. Patient is complaining of shortness of breath. She is complaining of none productive cough. She is also complaining of the respiratory wheezings. She is also commenting of subjective fever, shaking chills, and diaphoresis. She denies any anxiety. Pending COVID Quilcene test. Continue IV fluid, IV empiric antibiotics Rocephin and Zithromax. Continue isolation until negative COVID Quilcene test. Continue to titrate supplemental oxygen's in order to keep oxygen saturations above 92%. 11/05: COVID pending for negative. Afebrile overnight. Cultures no growth today. Patient is currently on 2 L/min of oxygen. Patient is coming of shortness of breath. She is coming of nonproductive cough. She is coming of constipations with abdominal distention's. She is complaining of general body swelling. Saline lock. Lasix 40 Mg IV twice daily. We will recheck serum potassium level at this afternoon. Continue empiric antibiotics Rocephin and Zithromax for pneumonia. Continue to titrate supplemental oxygen's in order to keep oxygen saturations above 92%. Colace/Senna/Miralax/Milk of Mag/Lactulose for constipation. 11/06: Afebrile overnight. Urine culture grew jim sensitive E coli; blood culture no growth to date. Patient is currently on 2 L/min of oxygen. Improving degree of shortness of breath. She is coming of nonproductive cough. She is coming of respiratory wheezing. She is coming of fever, chills, and diaphoresis. Lasix 20mg PO BID. Continue potassium oral replacement. Continue Rocephin and Zithromax for pneumonia/UTI. Continue to titrate supplemental oxygen's in order to keep oxygen saturations above 92%. Colace/Senna/Miralax/Milk of Mag/Lactulose for constipation. Constitutional Vitals: Vital Signs Temp Pulse Resp BP Pulse Ox O2 Del Method O2 Flow Rate 37.2 C 70 20 143/88 95 1 11/06/21 07:13 11/06/21 07:13 11/06/21 07:13 11/06/21 07:13 11/06/21 07:13 11/06/21 07:13 11/06/21 03:31 Period Temp Pulse Resp BP Sys/Zarco Pulse Ox O2 Del Method O2 Flow Rate Last 24 Hr 36.2 C-37.4 C 70-77 16-20 119-161/70-88 94-96 Nasal Cannula- Room Air 1-2 Intake and Output 11/05/21 11/06/21 11/06/21 21:59 05:59 13:59 Intake Total 520 600 Output Total 675 1050 Balance -155 -450 Weight 91.767 kg Intake & Output: Intake & Output 11/05/21 11/06/21 11/06/21 21:59 05:59 13:59 Intake Total 520 600 Output Total 675 1050 Balance -155 -450 Weight 91.767 kg Intake: IV 520 Potassium Chloride 40 Meq In 520 Dextrose 5% in Water 500 ml @ 130 mls/hr IV ONCE ONE Rx#: [id number] Oral 600 Output: Urine Catheter Amount 675 1050 Other: Urine Appearance Clear Clear Uretheral (Chavez) Clear Urine Color Pale Bright Yellow Uretheral (Chavez) Bright Yellow Urine Odor Normal Uretheral (Chavez) Normal General appearance: cooperative, no acute distress and obese Head Head exam: Present atraumatic and normal inspection Eye Eye exam: Present normal appearance ENT ENT exam: Present mucous membranes moist, normal exam and normal external ear exam Additional comments: Nasal cannula in place Neck Neck exam: Present normal inspection Respiratory Respiratory exam: Present normal respiratory exam Cardiovascular Cardiovascular exam: Present normal rate and rhythm GI/Abdominal GI/Abdominal exam: Present normal bowel sounds Extremities Exam Extremities exam: Present pedal edema Back Exam Back exam: Present normal inspection Neurological Exam Neurological exam: Present alert and oriented X3 Skin Skin exam: Present intact and warm OBJ DATA Labs CBC & Chem 7: 11/06/21 05:19 11/06/21 05:19 Labs: Abnormal Lab Results 11/06/21 11/06/21 11/05/21 05:19 05:19 15:21 MPV Immature Gran % (Auto) 1.8 H Neut % (Auto) Lymph % (Auto) Lymph # (Auto) Immature Gran # 0.15 H Absolute Neutrophils POC VBG pH POC VBG pCO2 at Temp POC VBG pO2 POC VBG HCO3 POC VBG Total CO2 POC Venous O2 Sat POC VBG Base Excess Potassium 2.7 L* Chloride 95 L Carbon Dioxide Creatinine 0.5 L POC Glucose Calcium POC WB Ioniz Calcium Alkaline Phosphatase 230 H NT-Pro-B Natriuret Pep Total Protein Albumin 2.1 L Globulin 4.1 H Albumin/Globulin Ratio 0.5 L Procalcitonin Urine Appearance Urine Protein Urine Glucose (UA) Urine Ketones Urine Occult Blood Urine Nitrate Urine Bilirubin Urine Urobilinogen Urine RBC Urine WBC Urine Bacteria Urine Mucus 11/05/21 11/05/21 11/04/21 05:30 05:30 06:11 MPV Immature Gran % (Auto) 1.0 H Neut % (Auto) 84.7 H 83.5 H Lymph % (Auto) 9.8 L 11.1 L Lymph # (Auto) 0.95 L 1.15 L Immature Gran # 0.10 H Absolute Neutrophils 8.31 H 8.71 H POC VBG pH POC VBG pCO2 at Temp POC VBG pO2 POC VBG HCO3 POC VBG Total CO2 POC Venous O2 Sat POC VBG Base Excess Potassium Chloride Carbon Dioxide 21 L Creatinine 0.5 L POC Glucose Calcium POC WB Ioniz Calcium Alkaline Phosphatase 201 H NT-Pro-B Natriuret Pep Total Protein 5.8 L Albumin 2.2 L Globulin Albumin/Globulin Ratio 0.6 L Procalcitonin Urine Appearance Urine Protein Urine Glucose (UA) Urine Ketones Urine Occult Blood Urine Nitrate Urine Bilirubin Urine Urobilinogen Urine RBC Urine WBC Urine Bacteria Urine Mucus 11/04/21 11/03/21 11/03/21 06:10 20:13 19:30 MPV Immature Gran % (Auto) Neut % (Auto) Lymph % (Auto) Lymph # (Auto) Immature Gran # Absolute Neutrophils POC VBG pH 7.49 H POC VBG pCO2 at Temp 28.9 L POC VBG pO2 51 H POC VBG HCO3 21.9 L POC VBG Total CO2 23.0 L POC Venous O2 Sat 89.0 H POC VBG Base Excess Potassium 3.2 L Chloride Carbon Dioxide 20 L Creatinine 0.5 L POC Glucose Calcium 8.5 L POC WB Ioniz Calcium Alkaline Phosphatase 177 H NT-Pro-B Natriuret Pep Total Protein 5.6 L Albumin 1.9 L Globulin Albumin/Globulin Ratio 0.5 L Procalcitonin Urine Appearance Slightly cloudy A Urine Protein >=300 mg/dl A Urine Glucose (UA) 100 mg/dl A Urine Ketones 40 mg/dl A Urine Occult Blood Moderate A Urine Nitrate Positive A Urine Bilirubin Moderate A Urine Urobilinogen >=8.0 e.u./dl A Urine RBC 8 H Urine WBC 17 H Urine Bacteria Many A Urine Mucus Many A 11/03/21 11/03/21 11/03/21 19:11 18:20 18:20 MPV 11.7 H Immature Gran % (Auto) Neut % (Auto) 90.4 H Lymph % (Auto) 6.8 L Lymph # (Auto) 0.71 L Immature Gran # Absolute Neutrophils 9.41 H POC VBG pH POC VBG pCO2 at Temp POC VBG pO2 POC VBG HCO3 POC VBG Total CO2 POC Venous O2 Sat POC VBG Base Excess Potassium Chloride Carbon Dioxide Creatinine POC Glucose Calcium POC WB Ioniz Calcium Alkaline Phosphatase NT-Pro-B Natriuret Pep 1212.0 H Total Protein Albumin Globulin Albumin/Globulin Ratio Procalcitonin 0.35 H Urine Appearance Urine Protein Urine Glucose (UA) Urine Ketones Urine Occult Blood Urine Nitrate Urine Bilirubin Urine Urobilinogen Urine RBC Urine WBC Urine Bacteria Urine Mucus 11/03/21 11/03/21 18:18 18:18 MPV Immature Gran % (Auto) Neut % (Auto) Lymph % (Auto) Lymph # (Auto) Immature Gran # Absolute Neutrophils POC VBG pH 7.49 H POC VBG pCO2 at Temp 36.3 L POC VBG pO2 22 L POC VBG HCO3 POC VBG Total CO2 POC Venous O2 Sat POC VBG Base Excess 5.0 H* Potassium Chloride Carbon Dioxide Creatinine POC Glucose 128 H Calcium POC WB Ioniz Calcium 1.14 L Alkaline Phosphatase NT-Pro-B Natriuret Pep Total Protein Albumin Globulin Albumin/Globulin Ratio Procalcitonin Urine Appearance Urine Protein Urine Glucose (UA) Urine Ketones Urine Occult Blood Urine Nitrate Urine Bilirubin Urine Urobilinogen Urine RBC Urine WBC Urine Bacteria Urine Mucus Meds: Medications Acetaminophen (Acetaminophen 325 Mg Tablet) 650 mg PO Q6HP PRN; Protocol PRN Reason: Per Pain Protocol/Fever > 101 Last Admin: 11/05/21 21:55 Dose: 650 mg Albuterol Sulfate (Albuterol Sulfate 200 Puff Inhaler) 2 puff INH .Q4-6H PRN PRN Reason: bronchospasm Albuterol/Ipratropium (Ipratropium/Albuterol 3 Ml Ampul.Neb) 3 ml NEB Q4HRT PRN PRN Reason: Wheezing Last Admin: 11/05/21 14:57 Dose: 3 ml Bupropion HCl (Bupropion 150 Mg Tab.Sr.12h) 150 mg PO DAILY [facility] Last Admin: 11/06/21 09:15 Dose: 150 mg Ceftriaxone Sodium (Ceftriaxone 1 Gm Vial) 1 gm IV Q24H [facility] Last Admin: 11/06/21 09:14 Dose: 1 gm Docusate Sodium (Docusate Sodium 100 Mg Capsule) 100 mg PO BID [facility] Last Admin: 11/06/21 09:15 Dose: 100 mg Enoxaparin Sodium (Enoxaparin 40 Mg/0.4 Ml Syringe) 40 mg SQ DAILY [facility] Last Admin: 11/06/21 09:15 Dose: 40 mg Furosemide (Furosemide 20 Mg Tablet) 20 mg PO BIDD [facility] Guaifenesin (Guaifenesin/Dextromethorphan Oral Genesis) 10 ml PO Q4HP PRN PRN Reason: Cough Last Admin: 11/05/21 15:15 Dose: 10 ml Hydralazine HCl (Hydralazine 20 Mg/Ml Vial) 10 mg IV Q4-6HP PRN PRN Reason: Hypertension Lactulose (Lactulose 20 Gm/30 Ml Oral.Genesis) 20 gm PO DAILY PRN PRN Reason: Constipation Lidocaine (Lidocaine Patch) 1 patch TOPICAL DAILY@1000 [facility] Last Admin: 11/05/21 10:39 Dose: 1 patch Magnesium Hydroxide (Magnesium Hydroxide 30 Ml Oral.Susp) 30 ml PO BIDP PRN PRN Reason: Constipation Montelukast Sodium (Montelukast 10 Mg Tablet) 10 mg PO [facility] Last Admin: 11/05/21 20:34 Dose: 10 mg Omeprazole (Omeprazole 20 Mg Capsule) 40 mg PO QDAY [facility] Last Admin: 11/06/21 09:26 Dose: 40 mg Ondansetron HCl (Ondansetron 4 Mg/2 Ml Vial) 4 mg IV Q6HP PRN PRN Reason: Nausea And Vomiting Last Admin: 11/04/21 03:52 Dose: 4 mg Polyethylene Glycol (Polyethylene Glycol 3350 17 Gm Packet) 17 gm PO DAILYP PRN PRN Reason: Constipation Last Admin: 11/06/21 05:46 Dose: 17 gm Potassium Chloride (Potassium Chloride 20 Meq Tablet) 20 meq PO BIDCC [facility] Last Admin: 11/06/21 09:14 Dose: 20 meq Senna (Sennosides 1 Tablet) 2 tab PO [facility] Last Admin: 11/05/21 20:34 Dose: 2 tab Sertraline HCl (Sertraline 100 Mg Tablet) 100 mg PO QDAY [facility] Last Admin: 11/06/21 09:15 Dose: 100 mg Sodium Chloride (0.9 % Sodium Chloride 10 Ml Syringe) 10 ml IV Q8 [facility] Last Admin: 11/06/21 05:46 Dose: 10 ml Trazodone HCl (Trazodone Hcl 50 Mg Tablet) 25 mg PO HSP PRN PRN Reason: Insomnia Last Admin: 11/04/21 21:47 Dose: 25 mg A/P Assessment and plan (1) Sepsis: Status: Acute (2) Pneumonia involving right lung: Status: Acute (3) UTI (urinary tract infection): Status: Acute (4) Osteoporosis: Status: Chronic Comment: 09/12/06 Bone Density--Spine T-score -3.5; Hip T-score -2.2. 03/28/13 Bone Density--Femoral neck T-score -2.2 (osteopenia); distal wrist T-score -2.7 (moderate osteoporosis) Qualifiers: Osteoporosis type: unspecified Presence of current pathological fracture: with current pathological fracture Encounter type: initial encounter Qualified Code(s): M80.00XA - Age-related osteoporosis with current pathological fracture, unspecified site, initial encounter for fracture (5) Depression with anxiety: Status: Acute Narrative A/P Narrative: Assessment and Plans: 1. Sepsis secondary to community acquired pneumonia and UTI: Inpatient med surg Serial lactic acid Procalcitonin Blood culture, no growth to date Urine culture, jim sensitive E coli cbc w/ auto diff in the morning to trend WBC Lasix 20mg PO BID Rocephin Zithromax Tylenol Toradol Robitussin DM DuoNEB NEB 2. Depression with anxiety: Sertraline Wellbutrin 3. Osteoporosis: Continue to monitor 4. Constipation: Colace Senna Milk of Mag Miralax Lactulose GI ppx: continue oral PPI from home regimen DVT ppx: Lovenox Code status: DNR Prognosis: guarded Disposition: Inpatient med surg Time Spent With Patient Time: Total time spent is greater than 50% in coordination of care (as documented) at patient's floor/unit and/or counseling patient: Total time spent with greater than 50% in coordination of care (as documented) at patient's floor/unit and/or counseling patient:: 35 - 50 minutes QUALITY Stroke Symptom Onset Unknown: No VTE Deep Vein Thrombosis/Pulmonary Embolism Present on Admission: No
[2021-11-06] MEDS: LIDOCAINE PATCH TOPICAL SCH (11:55)
[2021-11-06] MEDS: ACETAMINOPHEN 325 MG TABLET PO PRN ×2 (12:10→18:48)
[2021-11-06] MEDS: FUROSEMIDE 20 MG TABLET PO SCH (16:21)
[2021-11-06] MEDS: SENNOSIDES 1 TABLET PO SCH (20:11)
[2021-11-06] MEDS: MONTELUKAST 10 MG TABLET PO SCH (20:11)
[2021-11-07] MEDS: 0.9 % SODIUM CHLORIDE 10 ML SYRINGE IV SCH ×4 (01:29→20:16)
[2021-11-07 06:53] LABS: Basophils # (Auto) 0.06 K/mcL (0.00-0.30); Basophils % (Auto) 0.9 % (0.0-2.0); Eosinophils # (Auto) 0.21 K/mcL (0.00-0.70); Eosinophils % (Auto) 3.2 % (0.0-7.0); Hematocrit 37.1 % (34.1-44.9); Hemoglobin 12.2 g/dL (11.2-15.7); Lymphocytes % (Auto) 24.2 % (15.5-49.0); Mean Cell Volume 91.8 fL (80.0-100.0); Mean Corpuscular HGB Conc 32.9 g/dL (31.0-36.0); Mean Platelet Volume 9.4 fL (7.4-10.4); Monocytes # (Auto) 0.52 K/mcL (0.10-0.90); Monocytes % (Auto) 7.9 % (1.0-12.0); Neutrophils % (Auto) 60.3 % (38.0-78.0); Platelet Count 346 K/mcL (140-440); RBC 4.04 M/mcL (3.59-5.38); Red Cell Distribution Width 14.1 % (11.5-14.5); WBC 6.6 K/mcL (4.5-11.0)
[2021-11-07 07:12] LABS: ALT/SGPT 23 U/L (<40); AST/SGOT 34 U/L (<32); Albumin 2.7 gm/dL (3.2-5.2); Albumin/Globulin Ratio 0.8 (1.0-2.3); Alkaline Phosphatase 217 U/L (39-117); Bilirubin,Total 0.4 mg/dL (0.1-1.0); Blood Urea Nitrogen 12 mg/dL (8-23); Carbon Dioxide 33 mmol/L (22-30); Chloride 94 mmol/L (96-108); Globulin 3.4 gm/dL (2.2-3.7); Glomerular Filtration Rate 92; Glucose 102 mg/dL (70-105); Phosphorous 3.5 mg/dL (2.5-4.5)
[2021-11-07] MEDS: SERTRALINE 100 MG TABLET PO SCH (08:58)
[2021-11-07] MEDS: buPROPion 150 MG TAB.SR.12H PO SCH (08:58)
[2021-11-07] MEDS: OMEPRAZOLE 20 MG CAPSULE PO SCH (08:59)
[2021-11-07] MEDS: POTASSIUM CHLORIDE 20 MEQ TABLET PO SCH ×2 (09:00→17:25)
[2021-11-07] MEDS: DOCUSATE SODIUM 100 MG CAPSULE PO SCH ×2 (09:00→20:15)
[2021-11-07] MEDS: LIDOCAINE PATCH TOPICAL SCH (09:00)
[2021-11-07] MEDS: ENOXAPARIN 40 MG/0.4 ML SYRINGE SQ SCH (09:00)
[2021-11-07] MEDS: FUROSEMIDE 20 MG TABLET PO SCH ×2 (09:00→17:27)
[2021-11-07] MEDS: cefTRIAXone 1 GM VIAL IV SCH (09:22)
[2021-11-07] MEDS ORDERED: GLYCERIN, ADULT 1 SUPP.RECT PR PRN (10:14)
--- NOTE | 2021-11-07 10:14 | Internal Med Progress Note ---
SUBJECTIVE Subjective Patient information: Note initiated : 11/07/21 at 10:12 am Service Date, if different from initiated Date: [] Patient: Farhat Milian a 76 y/o F admitted on 11/03/21 for Fever, confusion. Chief Complaint: [] Interval history: Ms. Milian is a 76 year old F history of osteoporosis, depression with anxiety, presenting with 5-day history of fever, chills, diaphoresis, shortness of breath, productive cough with clear sputum productions. She recently returned at from a 3 weeks [place] trip. Over the past 5 days, she is experiencing fever, chills, diaphoresis, shortness of breath, productive cough with clear sputum. She is also committing of substernal chest pain whenever she coughs. She is also committing of respiratory wheezings. She is also coming off general body weakness. Vital signs at ED presentations significant for fever with T- max 40.3 Celsius, and tachypnea with rate of breathing up to the low 30s breaths per minutes. Oxygen saturations in the high 90s on room air. Labs significant for lack of leukocytosis with WBC 10.4 but with significant left shift. Lactic acid 0.7, procalcitonin 0.35. COVID-negative. UA suggests presence of urinary tract infections. Chest x-ray also showing infiltrate in the right lower lobe suggestive of pneumonia. 11/04: Patient is continue to have low-grade fever with T-max 37.7 C overnight. Patient is currently on 1 L/min of oxygen. Patient is complaining of shortness of breath. She is complaining of none productive cough. She is also complaining of the respiratory wheezings. She is also commenting of subjective fever, shaking chills, and diaphoresis. She denies any anxiety. Pending COVID [place] test. Continue IV fluid, IV empiric antibiotics Rocephin and Zithromax. Continue isolation until negative COVID [place] test. Continue to titrate supplemental oxygen's in order to keep oxygen saturations above 92%. 11/05: COVID pending for negative. Afebrile overnight. Cultures no growth today. Patient is currently on 2 L/min of oxygen. Patient is coming of shortness of breath. She is coming of nonproductive cough. She is coming of constipations with abdominal distention's. She is complaining of general body swelling. Saline lock. Lasix 40 Mg IV twice daily. We will recheck serum potassium level at this afternoon. Continue empiric antibiotics Rocephin and Zithromax for pneumonia. Continue to titrate supplemental oxygen's in order to keep oxygen saturations above 92%. Colace/Senna/Miralax/Milk of Mag/Lactulose for constipation. 11/06: Afebrile overnight. Urine culture grew jim sensitive E coli; blood culture no growth to date. Patient is currently on 2 L/min of oxygen. Improving degree of shortness of breath. She is complaining of nonproductive cough. She is coming of respiratory wheezing. She is complaining of fever, chills, and diaphoresis. Lasix 20mg PO BID. Continue potassium oral replacement. Continue Rocephin and Zithromax for pneumonia/UTI. Continue to titrate supplemental oxygen's in order to keep oxygen saturations above 92%. Colace/Senna/Miralax/Milk of Mag/Lactulose for constipation. 11/07: Afebrile overnight. Patient is currently on 2 L/min of oxygen. Improving degree of shortness of breath. She is complaining of nonproductive cough. She is coming of respiratory wheezing. Denies fever, chills, and diaphoresis. Still have not have bowel movement. Lasix 20mg PO BID. Continue potassium oral replacement. Continue Rocephin and Zithromax for pneumonia/UTI. Continue to titrate supplemental oxygen's in order to keep oxygen saturations above 92%. Colace/Senna/Miralax/Milk of Mag/Lactulose for constipation. Will add glycerin supp PRN constipation. Physical therapy evaluation and treatment. Constitutional Vitals: Vital Signs Temp Pulse Resp BP Pulse Ox O2 Del Method O2 Flow Rate 37.0 C 70 20 154/72 96 1 11/07/21 07:39 11/07/21 07:39 11/07/21 07:39 11/07/21 07:39 11/07/21 07:39 11/07/21 07:39 11/07/21 07:39 Period Temp Pulse Resp BP Sys/Zarco Pulse Ox O2 Del Method O2 Flow Rate Last 24 Hr 36.4 C-37.0 C 66-82 14-22 133-165/72-95 92-97 Nasal Cannula- Room Air 1-1 Intake and Output 11/06/21 11/07/21 11/07/21 21:59 05:59 13:59 Intake Total 400 240 Output Total 1700 800 Balance -1700 -400 240 Weight 89.868 kg Intake & Output: Intake & Output 11/06/21 11/07/21 11/07/21 21:59 05:59 13:59 Intake Total 400 240 Output Total 1700 800 Balance -1700 -400 240 Weight 89.868 kg Intake: Oral 400 240 Output: Urine Catheter Amount 1700 800 Other: Urine Appearance Clear Clear Sediment Uretheral (Chavez) Clear Urine Color Dark Yellow Bright Yellow Uretheral (Chavez) Bright Yellow Urine Odor Normal Head Head exam: Present atraumatic and normal inspection Eye Eye exam: Present normal appearance ENT ENT exam: Present mucous membranes moist, normal exam and normal external ear exam Additional comments: Nasal cannula in place Neck Neck exam: Present normal inspection Respiratory Respiratory exam: Present rhonchi Cardiovascular Cardiovascular exam: Present normal rate and rhythm GI/Abdominal GI/Abdominal exam: Present normal bowel sounds Additional comments: Chavez catheter in place Extremities Exam Extremities exam: Present pedal edema Back Exam Back exam: Present normal inspection Neurological Exam Neurological exam: Present alert and oriented X3 Skin Skin exam: Present intact and warm OBJ DATA Labs CBC & Chem 7: 11/07/21 05:18 11/07/21 05:18 Labs: Abnormal Lab Results 11/07/21 11/07/21 11/06/21 05:18 05:18 05:19 Immature Gran % (Auto) 3.5 H Neut % (Auto) Lymph % (Auto) Lymph # (Auto) Immature Gran # 0.23 H Absolute Neutrophils Potassium Chloride 94 L 95 L Carbon Dioxide 33 H Creatinine 0.5 L 0.5 L AST 34 H Alkaline Phosphatase 217 H 230 H Total Protein Albumin 2.7 L 2.1 L Globulin 4.1 H Albumin/Globulin Ratio 0.8 L 0.5 L 11/06/21 11/05/21 11/05/21 05:19 15:21 05:30 Immature Gran % (Auto) 1.8 H Neut % (Auto) Lymph % (Auto) Lymph # (Auto) Immature Gran # 0.15 H Absolute Neutrophils Potassium 2.7 L* Chloride Carbon Dioxide 21 L Creatinine 0.5 L AST Alkaline Phosphatase 201 H Total Protein 5.8 L Albumin 2.2 L Globulin Albumin/Globulin Ratio 0.6 L 11/05/21 05:30 Immature Gran % (Auto) 1.0 H Neut % (Auto) 84.7 H Lymph % (Auto) 9.8 L Lymph # (Auto) 0.95 L Immature Gran # 0.10 H Absolute Neutrophils 8.31 H Potassium Chloride Carbon Dioxide Creatinine AST Alkaline Phosphatase Total Protein Albumin Globulin Albumin/Globulin Ratio Meds: Medications Acetaminophen (Acetaminophen 325 Mg Tablet) 650 mg PO Q6HP PRN; Protocol PRN Reason: Per Pain Protocol/Fever > 101 Last Admin: 11/06/21 18:48 Dose: 650 mg Albuterol Sulfate (Albuterol Sulfate 200 Puff Inhaler) 2 puff INH .Q4-6H PRN PRN Reason: bronchospasm Albuterol/Ipratropium (Ipratropium/Albuterol 3 Ml Ampul.Neb) 3 ml NEB Q4HRT PRN PRN Reason: Wheezing Last Admin: 11/05/21 14:57 Dose: 3 ml Bupropion HCl (Bupropion 150 Mg Tab.Sr.12h) 150 mg PO DAILY [facility] Last Admin: 11/07/21 08:58 Dose: 150 mg Ceftriaxone Sodium (Ceftriaxone 1 Gm Vial) 1 gm IV Q24H [facility] Last Admin: 11/07/21 09:22 Dose: 1 gm Docusate Sodium (Docusate Sodium 100 Mg Capsule) 100 mg PO BID [facility] Last Admin: 11/07/21 09:00 Dose: 100 mg Enoxaparin Sodium (Enoxaparin 40 Mg/0.4 Ml Syringe) 40 mg SQ DAILY [facility] Last Admin: 11/07/21 09:00 Dose: 40 mg Furosemide (Furosemide 20 Mg Tablet) 20 mg PO BIDD [facility] Last Admin: 11/07/21 09:00 Dose: 20 mg Guaifenesin (Guaifenesin/Dextromethorphan Oral Genesis) 10 ml PO Q4HP PRN PRN Reason: Cough Last Admin: 11/05/21 15:15 Dose: 10 ml Hydralazine HCl (Hydralazine 20 Mg/Ml Vial) 10 mg IV Q4-6HP PRN PRN Reason: Hypertension Lactulose (Lactulose 20 Gm/30 Ml Oral.Genesis) 20 gm PO DAILY PRN PRN Reason: Constipation Lidocaine (Lidocaine Patch) 1 patch TOPICAL DAILY@1000 [facility] Last Admin: 11/07/21 09:00 Dose: 1 patch Magnesium Hydroxide (Magnesium Hydroxide 30 Ml Oral.Susp) 30 ml PO BIDP PRN PRN Reason: Constipation Montelukast Sodium (Montelukast 10 Mg Tablet) 10 mg PO [facility] Last Admin: 11/06/21 20:11 Dose: 10 mg Omeprazole (Omeprazole 20 Mg Capsule) 40 mg PO QDAY [facility] Last Admin: 11/07/21 08:59 Dose: 40 mg Ondansetron HCl (Ondansetron 4 Mg/2 Ml Vial) 4 mg IV Q6HP PRN PRN Reason: Nausea And Vomiting Last Admin: 11/04/21 03:52 Dose: 4 mg Polyethylene Glycol (Polyethylene Glycol 3350 17 Gm Packet) 17 gm PO DAILYP PRN PRN Reason: Constipation Last Admin: 11/06/21 05:46 Dose: 17 gm Potassium Chloride (Potassium Chloride 20 Meq Tablet) 20 meq PO BIDCC [facility] Last Admin: 11/07/21 09:00 Dose: 20 meq Potassium Chloride (Potassium Ch[facility] 20 [facility]t) [facility] Senna (Sennosides 1 Tablet) 2 tab PO [facility] Last Admin: 11/06/21 20:11 Dose: 2 tab Sertraline HCl (Sertraline 100 Mg Tablet) 100 mg PO QDAY [facility] Last Admin: 11/07/21 08:58 Dose: 100 mg Sodium Chloride (0.9 % Sodium Chloride 10 Ml Syringe) 10 ml IV Q8 [facility] Last Admin: 11/07/21 06:09 Dose: 10 ml Trazodone HCl (Trazodone Hcl 50 Mg Tablet) 25 mg PO HSP PRN PRN Reason: Insomnia Last Admin: 11/04/21 21:47 Dose: 25 mg A/P Assessment and plan (1) Sepsis: Status: Acute (2) Pneumonia involving right lung: Status: Acute (3) UTI (urinary tract infection): Status: Acute (4) Osteoporosis: Status: Chronic Comment: 09/12/06 Bone Density--Spine T-score -3.5; Hip T-score -2.2. 03/28/13 Bone Density--Femoral neck T-score -2.2 (osteopenia); distal wrist T-score -2.7 (moderate osteoporosis) Qualifiers: Osteoporosis type: unspecified Presence of current pathological fracture: with current pathological fracture Encounter type: initial encounter Qualified Code(s): M80.00XA - Age-related osteoporosis with current patho logical fracture, unspecified site, initial encounter for fracture (5) Depression with anxiety: Status: Acute (6) Hypokalemia: Status: Acute Narrative A/P Narrative: Assessment and Plans: 1. Sepsis secondary to community acquired pneumonia and UTI: Inpatient med surg Serial lactic acid Procalcitonin Blood culture, no growth to date Urine culture, jim sensitive E coli cbc w/ auto diff in the morning to trend WBC Lasix 20mg PO BID Rocephin Zithromax Tylenol Toradol Robitussin DM DuoNEB NEB Physical therapy 2. Depression with anxiety: Sertraline Wellbutrin 3. Osteoporosis: Continue to monitor 4. Constipation: Colace Senna Milk of Mag Miralax Lactulose Glycerin supp. PRN constipation 5. Hypokalemia: Potassium chloride oral replacement Repeat CMP in the morning to trend serum potassium level Also check serum Mg level and will replace if needed GI ppx: continue oral PPI from home regimen DVT ppx: Lovenox Code status: DNR Prognosis: guarded Disposition: Inpatient med surg; PT Time Spent With Patient Time: Total time spent is greater than 50% in coordination of care (as documented) at patient's floor/unit and/or counseling patient: Total time spent with greater than 50% in coordination of care (as documented) a t patient's floor/unit and/or counseling patient:: 50 - 70 minutes QUALITY Stroke Symptom Onset Unknown: No VTE Deep Vein Thrombosis/Pulmonary Embolism Present on Admission: No
[2021-11-07] MEDS: ACETAMINOPHEN 325 MG TABLET PO PRN (17:26)
[2021-11-07] MEDS ORDERED: POTASSIUM CHLORIDE 20 MEQ TABLET PO SCH (17:30)
[2021-11-07] MEDS: MAGNESIUM HYDROXIDE 30 ML ORAL.SUSP PO PRN (20:14)
[2021-11-07] MEDS: IBUPROFEN 600 MG TABLET PO PRN (20:14)
[2021-11-07] MEDS: MONTELUKAST 10 MG TABLET PO SCH (20:15)
[2021-11-07] MEDS: SENNOSIDES 1 TABLET PO SCH (20:15)
[2021-11-07] MEDS: ONDANSETRON 4 MG/2 ML VIAL IV PRN (21:07)
[2021-11-08] MEDS: 0.9 % SODIUM CHLORIDE 10 ML SYRINGE IV SCH ×3 (04:07→21:05)
[2021-11-08 06:57] LABS: Basophils # (Auto) 0.06 K/mcL (0.00-0.30); Basophils % (Auto) 0.9 % (0.0-2.0); Eosinophils # (Auto) 0.24 K/mcL (0.00-0.70); Eosinophils % (Auto) 3.7 % (0.0-7.0); Hematocrit 38.2 % (34.1-44.9); Hemoglobin 11.8 g/dL (11.2-15.7); Lymphocytes # (Auto) 1.88 K/mcL (1.50-4.80); Lymphocytes % (Auto) 29.2 % (15.5-49.0); Mean Cell Volume 97.4 fL (80.0-100.0); Mean Corpuscular HGB Conc 30.9 g/dL (31.0-36.0); Mean Platelet Volume 9.3 fL (7.4-10.4); Monocytes # (Auto) 0.51 K/mcL (0.10-0.90); Monocytes % (Auto) 7.9 % (1.0-12.0); Neutrophils % (Auto) 53.5 % (38.0-78.0); Platelet Count 347 K/mcL (140-440); RBC 3.92 M/mcL (3.59-5.38); Red Cell Distribution Width 14.8 % (11.5-14.5); WBC 6.4 K/mcL (4.5-11.0)
[2021-11-08 07:28] LABS: ALT/SGPT 21 U/L (<40); AST/SGOT 30 U/L (<32); Albumin 2.4 gm/dL (3.2-5.2); Albumin/Globulin Ratio 0.7 (1.0-2.3); Alkaline Phosphatase 194 U/L (39-117); Bilirubin,Total 0.3 mg/dL (0.1-1.0); Blood Urea Nitrogen 16 mg/dL (8-23); Calcium 9.1 mg/dL (8.6-10.4); Carbon Dioxide 30 mmol/L (22-30); Chloride 98 mmol/L (96-108); Globulin 3.4 gm/dL (2.2-3.7); Glomerular Filtration Rate 92; Glucose 104 mg/dL (70-105); Phosphorous 3.6 mg/dL (2.5-4.5)
[2021-11-08] MEDS: buPROPion 150 MG TAB.SR.12H PO SCH (08:36)
[2021-11-08] MEDS: OMEPRAZOLE 20 MG CAPSULE PO SCH (08:36)
[2021-11-08] MEDS: DOCUSATE SODIUM 100 MG CAPSULE PO SCH ×2 (08:37→21:04)
[2021-11-08] MEDS: SERTRALINE 100 MG TABLET PO SCH (08:37)
[2021-11-08] MEDS: POTASSIUM CHLORIDE 20 MEQ TABLET PO SCH ×2 (08:37→16:59)
[2021-11-08] MEDS: FUROSEMIDE 20 MG TABLET PO SCH ×2 (08:37→16:59)
[2021-11-08] MEDS: ENOXAPARIN 40 MG/0.4 ML SYRINGE SQ SCH (08:37)
[2021-11-08] MEDS: MAGNESIUM HYDROXIDE 30 ML ORAL.SUSP PO PRN (08:38)
[2021-11-08] MEDS: cefTRIAXone 1 GM VIAL IV SCH (08:38)
--- NOTE | 2021-11-08 08:55 | Internal Med Progress Note ---
SUBJECTIVE Subjective Patient information: Note initiated : 11/08/21 at 8:52 am Service Date, if different from initiated Date: [] Patient: Farhat Milian a 76 y/o F admitted on 11/03/21 for Fever, confusion. Chief Complaint: [] Interval history: Ms. Milian is a 76 year old F history of osteoporosis, depression with anxiety, presenting with 5-day history of fever, chills, diaphoresis, shortness of breath, productive cough with clear sputum productions. She recently returned at from a 3 weeks [place] trip. Over the past 5 days, she is experiencing fever, chills, diaphoresis, shortness of breath, productive cough with clear sputum. She is also committing of substernal chest pain whenever she coughs. She is also committing of respiratory wheezings. She is also coming off general body weakness. Vital signs at ED presentations significant for fever with T- max 40.3 Celsius, and tachypnea with rate of breathing up to the low 30s breaths per minutes. Oxygen saturations in the high 90s on room air. Labs significant for lack of leukocytosis with WBC 10.4 but with significant left shift. Lactic acid 0.7, procalcitonin 0.35. COVID-negative. UA suggests presence of urinary tract infections. Chest x-ray also showing infiltrate in the right lower lobe suggestive of pneumonia. 11/04: Patient is continue to have low-grade fever with T-max 37.7 C overnight. Patient is currently on 1 L/min of oxygen. Patient is complaining of shortness of breath. She is complaining of none productive cough. She is also complaining of the respiratory wheezings. She is also commenting of subjective fever, shaking chills, and diaphoresis. She denies any anxiety. Pending COVID [place] test. Continue IV fluid, IV empiric antibiotics Rocephin and Zithromax. Continue isolation until negative COVID [place] test. Continue to titrate supplemental oxygen's in order to keep oxygen saturations above 92%. 11/05: COVID pending for negative. Afebrile overnight. Cultures no growth today. Patient is currently on 2 L/min of oxygen. Patient is coming of shortness of breath. She is coming of nonproductive cough. She is coming of constipations with abdominal distention's. She is complaining of general body swelling. Saline lock. Lasix 40 Mg IV twice daily. We will recheck serum potassium level at this afternoon. Continue empiric antibiotics Rocephin and Zithromax for pneumonia. Continue to titrate supplemental oxygen's in order to keep oxygen saturations above 92%. Colace/Senna/Miralax/Milk of Mag/Lactulose for constipation. 11/06: Afebrile overnight. Urine culture grew jim sensitive E coli; blood culture no growth to date. Patient is currently on 2 L/min of oxygen. Improving degree of shortness of breath. She is complaining of nonproductive cough. She is coming of respiratory wheezing. She is complaining of fever, chills, and diaphoresis. Lasix 20mg PO BID. Continue potassium oral replacement. Continue Rocephin and Zithromax for pneumonia/UTI. Continue to titrate supplemental oxygen's in order to keep oxygen saturations above 92%. Colace/Senna/Miralax/Milk of Mag/Lactulose for constipation. 11/07: Afebrile overnight. Patient is currently on 2 L/min of oxygen. Improving degree of shortness of breath. She is complaining of nonproductive cough. She is coming of respiratory wheezing. Denies fever, chills, and diaphoresis. Still have not have bowel movement. Lasix 20mg PO BID. Continue potassium oral replacement. Continue Rocephin and Zithromax for pneumonia/UTI. Continue to titrate supplemental oxygen's in order to keep oxygen saturations above 92%. Colace/Senna/Miralax/Milk of Mag/Lactulose for constipation. Will add glycerin supp PRN constipation. Physical therapy evaluation and treatment. 11/08: Afebrile overnight. Patient is currently on 2 L/min of oxygen. Still have no bowel movement. Same degree of shortness of breath. Denies cough, sputum production, or respiratory wheezing. c/o fever, chills, and diaphoresis. Lasix 20mg PO BID. Continue potassium oral replacement. Continue Rocephin and Zithromax for pneumonia/UTI. Continue to titrate supplemental oxygen's in order to keep oxygen saturations above 92%. Colace/Senna/Miralax/Milk of Mag/Lactulose/glycerin suppositories for constipation. Physical therapy evaluation and treatment. Constitutional Vitals: Vital Signs Temp Pulse Resp BP Pulse Ox O2 Del Method O2 Flow Rate 36.1 C 66 20 134/84 96 2 11/08/21 08:00 11/08/21 08:00 11/08/21 08:00 11/08/21 08:00 11/08/21 08:00 11/08/21 08:00 11/08/21 04:00 Period Temp Pulse Resp BP Sys/Zarco Pulse Ox O2 Del Method O2 Flow Rate Last 24 Hr 35.6 C-36.3 C 66-77 - 123-181/62-86 94-96 Nasal Cannula- Room Air 1-2 Intake and Output 11/07/21 11/08/21 11/08/21 21:59 05:59 13:59 Intake Total 240 Output Total 800 600 Balance -800 -360 Weight 84.822 kg Intake & Output: Intake & Output 11/07/21 11/08/21 11/08/21 21:59 05:59 13:59 Intake Total 240 Output Total 800 600 Balance -800 -360 Weight 84.822 kg Intake: Oral 240 Output: Urine Catheter Amount 800 600 Other: Urine Appearance Clear Clear Uretheral (Chavez) Clear Urine Color Dark Yellow Dark Yellow Uretheral (Chavez) Bright Yellow Urine Odor Normal Head Head exam: Present atraumatic and normal inspection Eye Eye exam: Present normal appearance ENT ENT exam: Present mucous membranes moist, normal exam and normal external ear exam Additional comments: Nasal cannula in place Neck Neck exam: Present normal inspection Respiratory Respiratory exam: Present decreased breath sounds Cardiovascular Cardiovascular exam: Present normal rate and rhythm GI/Abdominal GI/Abdominal exam: Present normal bowel sounds Additional comments: Chavez catheter in place Extremities Exam Extremities exam: Present pedal edema Back Exam Back exam: Present normal inspection Neurological Exam Neurological exam: Present alert and oriented X3 Skin Skin exam: Present intact and warm OBJ DATA Labs CBC & Chem 7: 11/08/21 05:41 11/08/21 05:41 Labs: Abnormal Lab Results 11/08/21 11/08/21 11/07/21 05:41 05:41 05:18 MCHC 30.9 L RDW 14.8 H Immature Gran % (Auto) 4.8 H Immature Gran # 0.31 H Potassium Chloride 94 L Carbon Dioxide 33 H Creatinine 0.5 L 0.5 L Magnesium 2.7 H AST 34 H Alkaline Phosphatase 194 H 217 H Total Protein 5.8 L Albumin 2.4 L 2.7 L Globulin Albumin/Globulin Ratio 0.7 L 0.8 L 11/07/21 11/06/21 11/06/21 05:18 05:19 05:19 MCHC RDW Immature Gran % (Auto) 3.5 H 1.8 H Immature Gran # 0.23 H 0.15 H Potassium Chloride 95 L Carbon Dioxide Creatinine 0.5 L Magnesium AST Alkaline Phosphatase 230 H Total Protein Albumin 2.1 L Globulin 4.1 H Albumin/Globulin Ratio 0.5 L 11/05/21 15:21 MCHC RDW Immature Gran % (Auto) Immature Gran # Potassium 2.7 L* Chloride Carbon Dioxide Creatinine Magnesium AST Alkaline Phosphatase Total Protein Albumin Globulin Albumin/Globulin Ratio Meds: Medications Acetaminophen (Acetaminophen 325 Mg Tablet) 650 mg PO Q6HP PRN; Protocol PRN Reason: Per Pain Protocol/Fever > 101 Last Admin: 11/07/21 17:26 Dose: 650 mg Albuterol Sulfate (Albuterol Sulfate 200 Puff Inhaler) 2 puff INH .Q4-6H PRN PRN Reason: bronchospasm Albuterol/Ipratropium (Ipratropium/Albuterol 3 Ml Ampul.Neb) 3 ml NEB Q4HRT PRN PRN Reason: Wheezing Last Admin: 11/05/21 14:57 Dose: 3 ml Bupropion HCl (Bupropion 150 Mg Tab.Sr.12h) 150 mg PO DAILY [facility] Last Admin: 11/08/21 08:36 Dose: 150 mg Ceftriaxone Sodium (Ceftriaxone 1 Gm Vial) 1 gm IV Q24H [facility] Last Admin: 11/08/21 08:38 Dose: 1 gm Docusate Sodium (Docusate Sodium 100 Mg Capsule) 100 mg PO BID [facility] Last Admin: 11/08/21 08:37 Dose: 100 mg Enoxaparin Sodium (Enoxaparin 40 Mg/0.4 Ml Syringe) 40 mg SQ DAILY [facility] Last Admin: 11/08/21 08:37 Dose: 40 mg Furosemide (Furosemide 20 Mg Tablet) 20 mg PO BIDD [facility] Last Admin: 11/08/21 08:37 Dose: 20 mg Glycerin (Glycerin, Adult 1 Supp.Rect) 1 supp PA ONCE PRN PRN Reason: Constipation Guaifenesin (Guaifenesin/Dextromethorphan Oral Genesis) 10 ml PO Q4HP PRN PRN Reason: Cough Last Admin: 11/05/21 15:15 Dose: 10 ml Hydralazine HCl (Hydralazine 20 Mg/Ml Vial) 10 mg IV Q4-6HP PRN PRN Reason: Hypertension Last Admin: 11/07/21 15:50 Dose: 10 mg Ibuprofen (Ibuprofen 600 Mg Tablet) 600 mg PO QIDP PRN; Protocol PRN Reason: Headache Last Admin: 11/07/21 20:14 Dose: 600 mg Lactulose (Lactulose 20 Gm/30 Ml Oral.Genesis) 20 gm PO DAILY PRN PRN Reason: Constipation Lidocaine (Lidocaine Patch) 1 patch TOPICAL DAILY@1000 [facility] Last Admin: 11/07/21 09:00 Dose: 1 patch Magnesium Hydroxide (Magnesium Hydroxide 30 Ml Oral.Susp) 30 ml PO BIDP PRN PRN Reason: Constipation Last Admin: 11/08/21 08:38 Dose: 30 ml Montelukast Sodium (Montelukast 10 Mg Tablet) 10 mg PO [facility] Last Admin: 11/07/21 20:15 Dose: 10 mg Omeprazole (Omeprazole 20 Mg Capsule) 40 mg PO QDAY [facility] Last Admin: 11/08/21 08:36 Dose: 40 mg Ondansetron HCl (Ondansetron 4 Mg/2 Ml Vial) 4 mg IV Q6HP PRN PRN Reason: Nausea And Vomiting Last Admin: 11/07/21 21:07 Dose: 4 mg Polyethylene Glycol (Polyethylene Glycol 3350 17 Gm Packet) 17 gm PO DAILYP PRN PRN Reason: Constipation Last Admin: 11/06/21 05:46 Dose: 17 gm Potassium Chloride (Potassium Chloride 20 Meq Tablet) 20 meq PO BIDCC [facility] Last Admin: 11/08/21 08:37 Dose: 20 meq Senna (Sennosides 1 Tablet) 2 tab PO [facility] Last Admin: 11/07/21 20:15 Dose: 2 tab Sertraline HCl (Sertraline 100 Mg Tablet) 100 mg PO QDAY [facility] Last Admin: 11/08/21 08:37 Dose: 100 mg Sodium Chloride (0.9 % Sodium Chloride 10 Ml Syringe) 10 ml IV Q8 [facility] Last Admin: 11/08/21 04:07 Dose: 10 ml Trazodone HCl (Trazodone Hcl 50 Mg Tablet) 25 mg PO HSP PRN PRN Reason: Insomnia Last Admin: 11/04/21 21:47 Dose: 25 mg A/P Assessment and plan (1) Sepsis: Status: Acute (2) Pneumonia involving right lung: Status: Acute (3) UTI (urinary tract infection): Status: Acute (4) Osteoporosis: Status: Chronic Comment: 09/12/06 Bone Density--Spine T-score -3.5; Hip T-score -2.2. 03/28/13 Bone Density--Femoral neck T-score -2.2 (osteopenia); distal wrist T-score -2.7 (mode rate osteoporosis) Qualifiers: Osteoporosis type: unspecified Presence of current pathological frac ture: with current pathological fracture Encounter type: initial encounter Qualified Code(s): M80.00XA - Age-related osteoporosis with current pathological fracture, unspecified site, initial encounter for fracture (5) Depression with anxiety: Status: Acute (6) Hypokalemia: Status: Acute Narrative A/P Narrative: Assessment and Plans: 1. Sepsis secondary to community acquired pneumonia and UTI: Inpatient med surg Serial lactic acid Procalcitonin Blood culture, no growth to date Urine culture, jim sensitive E coli cbc w/ auto diff in the morning to trend WBC Lasix 20mg PO BID Rocephin Zithromax Tylenol Toradol Robitussin DM DuoNEB NEB Physical therapy 2. Depression with anxiety: Sertraline Wellbutrin 3. Osteoporosis: Continue to monitor 4. Constipation: Colace Senna Milk of Mag Miralax Lactulose Glycerin supp. PRN constipation 5. Hypokalemia: Potassium chloride oral replacement Repeat CMP in the morning to trend serum potassium level Also check serum Mg level and will replace if needed GI ppx: continue oral PPI from home regimen DVT ppx: Lovenox Code status: DNR Prognosis: guarded Disposition: Inpatient med surg; PT Time Spent With Patient Time: Total time spent is greater than 50% in coordination of care (as documented) at patient's floor/unit and/or counseling patient: Total time spent with greater than 50% in coordination of care (as documented) at patient's floor/unit and/or counseling patient:: 35 - 50 minutes QUALITY Stroke Symptom Onset Unknown: No VTE Deep Vein Thrombosis/Pulmonary Embolism Present on Admission: No
[2021-11-08] MEDS: LIDOCAINE PATCH TOPICAL SCH (10:14)
[2021-11-08] MEDS: ACETAMINOPHEN 325 MG TABLET PO PRN (13:29)
[2021-11-08] MEDS: IBUPROFEN 600 MG TABLET PO PRN (21:04)
[2021-11-08] MEDS: SENNOSIDES 1 TABLET PO SCH (21:04)
[2021-11-08] MEDS: MONTELUKAST 10 MG TABLET PO SCH (21:04)
[2021-11-09] MEDS: 0.9 % SODIUM CHLORIDE 10 ML SYRINGE IV SCH ×2 (06:14→19:13)
[2021-11-09] MEDS: POTASSIUM CHLORIDE 20 MEQ TABLET PO SCH (08:44)
[2021-11-09] MEDS: SERTRALINE 100 MG TABLET PO SCH (08:44)
[2021-11-09] MEDS: OMEPRAZOLE 20 MG CAPSULE PO SCH (08:45)
[2021-11-09] MEDS: FUROSEMIDE 20 MG TABLET PO SCH ×2 (08:45→19:14)
[2021-11-09] MEDS: buPROPion 150 MG TAB.SR.12H PO SCH (08:45)
[2021-11-09] MEDS: DOCUSATE SODIUM 100 MG CAPSULE PO SCH (08:45)
[2021-11-09] MEDS: ENOXAPARIN 40 MG/0.4 ML SYRINGE SQ SCH (08:46)
[2021-11-09] MEDS: LIDOCAINE PATCH TOPICAL SCH (10:40)
--- NOTE | 2021-11-09 12:29 | Internal Med Progress Note ---
SUBJECTIVE Subjective Patient information: Note initiated : 11/09/21 at 12:27 pm Service Date, if different from initiated Date: [] Patient: Farhat Milian a 76 y/o F admitted on 11/03/21 for Fever, confusion. Chief Complaint: Shortness of breath Principal diagnosis: Pneumonia Interval history: Ms. Milian is a 76 year old F history of osteoporosis, depression with anxiety, presenting with 5-day history of fever, chills, diaphoresis, shortness of breath, productive cough with clear sputum productions. She recently returned at from a 3 weeks [place] trip. Over the past 5 days, she is experiencing fever, chills, diaphoresis, shortness of breath, productive cough with clear sputum. She is also committing of substernal chest pain whenever she coughs. She is also committing of respiratory wheezings. She is also coming off general body weakness. Vital signs at ED presentations significant for fever with T- max 40.3 Celsius, and tachypnea with rate of breathing up to the low 30s breaths per minutes. Oxygen saturations in the high 90s on room air. Labs significant for lack of leukocytosis with WBC 10.4 but with significant left shift. Lactic acid 0.7, procalcitonin 0.35. COVID-negative. UA suggests presence of urinary tract infections. Chest x-ray also showing infiltrate in the right lower lobe suggestive of pneumonia. 11/04: Patient is continue to have low-grade fever with T-max 37.7 C overnight. Patient is currently on 1 L/min of oxygen. Patient is complaining of shortness of breath. She is complaining of none productive cough. She is also complaining of the respiratory wheezings. She is also commenting of subjective fever, shaking chills, and diaphoresis. She denies any anxiety. Pending COVID [place] test. Continue IV fluid, IV empiric antibiotics Rocephin and Zithromax. Continue isolation until negative COVID [place] test. Continue to titrate supplemental oxygen's in order to keep oxygen saturations above 92%. 11/05: COVID pending for negative. Afebrile overnight. Cultures no growth today. Patient is currently on 2 L/min of oxygen. Patient is coming of shortness of b reath. She is coming of nonproductive cough. She is coming of constipations with abdominal distention's. She is complaining of general body swelling. Saline lock. Lasix 40 Mg IV twice daily. We will recheck serum potassium level at this afternoon. Continue empiric antibiotics Rocephin and Zithromax for pneumonia. Continue to titrate supplemental oxygen's in order to keep oxygen saturations above 92%. Colace/Senna/Miralax/Milk of Mag/Lactulose for constipation. 11/06: Afebrile overnight. Urine culture grew jim sensitive E coli; blood culture no growth to date. Patient is currently on 2 L/min of oxygen. Improving degree of shortness of breath. She is complaining of nonproductive cough. She is coming of respiratory wheezing. She is complaining of fever, chills, and diaphoresis. Lasix 20mg PO BID. Continue potassium oral replacement. Continue Rocephin and Zithromax for pneumonia/UTI. Continue to titrate supplemental oxygen's in order to keep oxygen saturations above 92%. Colace/Senna/Miralax/Milk of Mag/Lactulose for constipation. 11/07: Afebrile overnight. Patient is currently on 2 L/min of oxygen. Improving degree of shortness of breath. She is complaining of nonproductive cough. She is coming of respiratory wheezing. Denies fever, chills, and diaphoresis. Still hav e not have bowel movement. Lasix 20mg PO BID. Continue potassium oral replacement. Continue Rocephin and Zithromax for pneumonia/UTI. Continue to titrate supplemental oxygen's in order to keep oxygen saturations above 92%. Colace/Senna/Miralax/Milk of Mag/Lactulose for constipation. Will add glycerin supp PRN constipation. Physical therapy evaluation and treatment. 11/08: Afebrile overnight. Patient is currently on 2 L/min of oxygen. Still have no bowel movement. Same degree of shortness of breath. Denies cough, sputum production, or respiratory wheezing. c/o fever, chills, and diaphoresis. Lasix 20mg PO BID. Continue potassium oral replacement. Continue Rocephin and Zithromax for pneumonia/UTI. Continue to titrate supplemental oxygen's in order to keep oxygen saturations above 92%. Colace/Senna/Miralax/Milk of Mag/Lactulose/glycerin suppositories for constipation. Physical therapy evaluation and treatment. 11/09: The patient states that she has no history of congestive heart failure. She is morbidly obese and has been mainly bedbound. She remains on supplemental O2. She has now completed a course of antibiotics. She worked with physical therapy and Occupational Therapy and it is unclear whether she wants to go to long term facility versus home with home health Constitutional Vitals: Vital Signs Temp Pulse Resp BP Pulse Ox O2 Del Method O2 Flow Rate 97.1 F 72 16 124/70 94 1 11/09/21 12:00 11/09/21 12:00 11/09/21 12:00 11/09/21 12:00 11/09/21 12:00 11/09/21 12:00 11/09/21 04:04 Period Temp Pulse Resp BP Sys/Zarco Pulse Ox O2 Del Method O2 Flow Rate Last 24 Hr 96.6 F-97.8 F 70-76 14-20 116-142/70-86 92-94 Nasal Cannula- Room Air 1-2 Intake and Output 11/08/21 11/09/21 11/09/21 21:59 05:59 13:59 Intake Total 240 420 Output Total 450 700 Balance -210 -280 Weight 85.91 kg Intake & Output: Intake & Output 11/08/21 11/09/21 11/09/21 21:59 05:59 13:59 Intake Total 240 420 Output Total 450 700 Balance -210 -280 Weight 85.91 kg Intake: Oral 240 420 Output: Urine Catheter Amount 450 700 Other: Meal Lunch Nourishment/Supplement Lunch Percent of Meal Consumed 50% 50% 100% Feeding Ability Assist with Tray Set Up Assist with Tray Set Up Nourishment/Supplement name Ensure Urine Appearance Cloudy Clear Uretheral (Chavez) Clear Urine Color Dark Yellow Bright Yellow Uretheral (Chavez) Bright Yellow Urine Odor Strong Stool Size Large Moderate Stool Color Brown Brown Stool Consistency Soft Soft Formed # Bowel Movements 1 1 Head Head exam: Present atraumatic and normal inspection Eye Eye exam: Present normal appearance ENT ENT exam: Present mucous membranes moist, normal exam and normal external ear exam Neck Neck exam: Present normal inspection Respiratory Respiratory exam: Present normal respiratory exam Cardiovascular Cardiovascular exam: Present normal rate and rhythm GI/Abdominal GI/Abdominal exam: Present normal bowel sounds Back Exam Back exam: Present normal inspection Neurological Exam Neurological exam: Present alert and oriented X3 Skin Skin exam: Present intact and warm OBJ DATA Labs CBC & Chem 7: 11/08/21 05:41 11/08/21 05:41 Labs: Abnormal Lab Results 11/08/21 11/08/21 11/07/21 05:41 05:41 05:18 MCHC 30.9 L RDW 14.8 H Immature Gran % (Auto) 4.8 H Immature Gran # 0.31 H Chloride 94 L Carbon Dioxide 33 H Creatinine 0.5 L 0.5 L Magnesium 2.7 H AST 34 H Alkaline Phosphatase 194 H 217 H Total Protein 5.8 L Albumin 2.4 L 2.7 L Albumin/Globulin Ratio 0.7 L 0.8 L 11/07/21 05:18 MCHC RDW Immature Gran % (Auto) 3.5 H Immature Gran # 0.23 H Chloride Carbon Dioxide Creatinine Magnesium AST Alkaline Phosphatase Total Protein Albumin Albumin/Globulin Ratio Meds: Medications Acetaminophen (Acetaminophen 325 Mg Tablet) 650 mg PO Q6HP PRN; Protocol PRN Reason: Per Pain Protocol/Fever > 101 Last Admin: 11/08/21 13:29 Dose: 650 mg Albuterol Sulfate (Albuterol Sulfate 200 Puff Inhaler) 2 puff INH .Q4-6H PRN PRN Reason: bronchospasm Albuterol/Ipratropium (Ipratropium/Albuterol 3 Ml Ampul.Neb) 3 ml NEB Q4HRT PRN PRN Reason: Wheezing Last Admin: 11/05/21 14:57 Dose: 3 ml Bupropion HCl (Bupropion 150 Mg Tab.Sr.12h) 150 mg PO DAILY [facility] Last Admin: 11/09/21 08:45 Dose: 150 mg Docusate Sodium (Docusate Sodium 100 Mg Capsule) 100 mg PO BID [facility] Last Admin: 11/09/21 08:45 Dose: 100 mg Enoxaparin Sodium (Enoxaparin 40 Mg/0.4 Ml Syringe) 40 mg SQ DAILY [facility] Last Admin: 11/09/21 08:46 Dose: 40 mg Furosemide (Furosemide 20 Mg Tablet) 20 mg PO BIDD [facility] Last Admin: 11/09/21 08:45 Dose: 20 mg Glycerin (Glycerin, Adult 1 Supp.Rect) 1 supp AR ONCE PRN PRN Reason: Constipation Last Admin: 11/08/21 13:44 Dose: 1 supp Guaifenesin (Guaifenesin/Dextromethorphan Oral Genesis) 10 ml PO Q4HP PRN PRN Reason: Cough Last Admin: 11/05/21 15:15 Dose: 10 ml Hydralazine HCl (Hydralazine 20 Mg/Ml Vial) 10 mg IV Q4-6HP PRN PRN Reason: Hypertension Last Admin: 11/07/21 15:50 Dose: 10 mg Ibuprofen (Ibuprofen 600 Mg Tablet) 600 mg PO QIDP PRN; Protocol PRN Reason: Headache Last Admin: 11/08/21 21:04 Dose: 600 mg Lactulose (Lactulose 20 Gm/30 Ml Oral.Genesis) 20 gm PO DAILY PRN PRN Reason: Constipation Lidocaine (Lidocaine Patch) 1 patch TOPICAL DAILY@1000 [facility] Last Admin: 11/09/21 10:40 Dose: 1 patch Magnesium Hydroxide (Magnesium Hydroxide 30 Ml Oral.Susp) 30 ml PO BIDP PRN PRN Reason: Constipation Last Admin: 11/08/21 08:38 Dose: 30 ml Montelukast Sodium (Montelukast 10 Mg Tablet) 10 mg PO [facility] Last Admin: 11/08/21 21:04 Dose: 10 mg Omeprazole (Omeprazole 20 Mg Capsule) 40 mg PO QDAY [facility] Last Admin: 11/09/21 08:45 Dose: 40 mg Ondansetron HCl (Ondansetron 4 Mg/2 Ml Vial) 4 mg IV Q6HP PRN PRN Reason: Nausea And Vomiting Last Admin: 11/07/21 21:07 Dose: 4 mg Polyethylene Glycol (Polyethylene Glycol 3350 17 Gm Packet) 17 gm PO DAILYP PRN PRN Reason: Constipation Last Admin: 11/06/21 05:46 Dose: 17 gm Potassium Chloride (Potassium Chloride 20 Meq Tablet) 20 meq PO BIDCC [facility] Last Admin: 11/09/21 08:44 Dose: 20 meq Senna (Sennosides 1 Tablet) 2 tab PO [facility] Last Admin: 11/08/21 21:04 Dose: 2 tab Sertraline HCl (Sertraline 100 Mg Tablet) 100 mg PO QDAY [facility] Last Admin: 11/09/21 08:44 Dose: 100 mg Sodium Chloride (0.9 % Sodium Chloride 10 Ml Syringe) 10 ml IV Q8 [facility] Last Admin: 11/09/21 06:14 Dose: 10 ml Trazodone HCl (Trazodone Hcl 50 Mg Tablet) 25 mg PO [facility] PRN PRN Reason: Insomnia Last Admin: 11/04/21 21:47 Dose: 25 mg A/P Assessment and plan (1) Sepsis: Status: Acute (2) Pneumonia involving right lung: Status: Acute (3) UTI (urinary tract infection): Status: Acute (4) Osteoporosis: Status: Chronic Comment: 09/12/06 Bone Density--Spine T-score -3.5; Hip T-score -2.2. 03/28/13 Bone Density--Femoral neck T-score -2.2 (osteopenia); distal wrist T-score -2.7 (moderate osteoporosis) Qualifiers: Osteoporosis type: unspecified Presence of current pathological fracture: with current pathological fracture Encounter type: initial encounter Qualified Code(s): M80.00XA - Age-related osteoporosis with current pathological fracture, unspecified site, initial encounter for fracture (5) Depression with anxiety: Status: Acute (6) Hypokalemia: Status: Acute Narrative A/P Narrative: Assessment and Plans: 1. Sepsis secondary to community acquired pneumonia and UTI: Inpatient med surg Serial lactic acid Procalcitonin Blood culture, no growth to date Urine culture, jim sensitive E coli cbc w/ auto diff in the morning to trend WBC Lasix 20mg PO BID Rocephin Zithromax Tylenol Toradol Robitussin DM DuoNEB NEB Physical therapy 2. Depression with anxiety: Sertraline Wellbutrin 3. Osteoporosis: Continue to monitor 4. Constipation: Colace Senna Milk of Mag Miralax Lactulose Glycerin supp. PRN constipation 5. Hypokalemia: Potassium chloride oral replacement Repeat CMP in the morning to trend serum potassium level Also check serum Mg level and will replace if needed GI ppx: continue oral PPI from home regimen DVT ppx: Lovenox Code status: DNR Prognosis: guarded Disposition: Inpatient med surg; PT Time Spent With Patient Time: Total time spent is greater than 50% in coordination of care (as documented) at patient's floor/unit and/or counseling patient: Total time spent with greater than 50% in coordination of care (as documented) at patient's floor/unit and/or counseling patient:: 25 - 35 minutes QUALITY Stroke Symptom Onset Unknown: No VTE Deep Vein Thrombosis/Pulmonary Embolism Present on Admission: No
--- NOTE | 2021-11-09 13:07 | Discharge Summary ---
Discharge Provider Provider IMPORTANT FOLLOW-UP INFORMATION FOR PCP: 1. Cardiology f/u for HF work up 2. Re-eval need for home O2 within 6 weeks Patient information: Note initiated : 11/09/21 at 1:06 pm Service Date, if different from initiated Date: [] Patient: Farhat Milian 76 y/o F admitted on 11/03/21 for Fever, confusion. Chief Complaint: [] Date of admission: 11/03/21 21:57 Discharge date: 11/09/21 Primary care physician: Crow Masters MD Consults: 11/03/21 Consult to Physician [CONS] Stat Comment: Consulting Provider: Narciso Ledesma Reason For Exam: Physician to Consult Attending physician on discharge: Tory Stauffer COURSE Hospital Course Hospital course: Interval history: Ms. Milian is a 76 year old F history of osteoporosis, depression with anxiety, presenting with 5-day history of fever, chills, diaphoresis, shortness of breath, productive cough with clear sputum productions. She recently returned at from a 3 weeks [place] trip. Over the past 5 days, she is experiencing fever, chills, diaphoresis, shortness of breath, productive cough with clear sputum. She is also committing of substernal chest pain whenever she coughs. She is also committing of respiratory wheezings. She is also coming off general body weakness. Vital signs at ED presentations significant for fever with T- max 40.3 Celsius, and tachypnea with rate of breathing up to the low 30s breaths per minutes. Oxygen saturations in the high 90s on room air. Labs significant for lack of leukocytosis with WBC 10.4 but with significant left shift. Lactic acid 0.7, procalcitonin 0.35. COVID-negative. UA suggests presence of urinary tract infections. Chest x-ray also showing infiltrate in the right lower lobe suggestive of pneumonia. 11/04: Patient is continue to have low-grade fever with T-max 37.7 C overnight. Patient is currently on 1 L/min of oxygen. Patient is complaining of shortness of breath. She is complaining of none productive cough. She is also complaining of the respiratory wheezings. She is also commenting of subjective fever, shaking chills, and diaphoresis. She denies any anxiety. Pending COVID [place] test. Continue IV fluid, IV empiric antibiotics Rocephin and Zithromax. Continue isolation until negative COVID [place] test. Continue to titrate supplemental oxygen's in order to keep oxygen saturations above 92%. 11/05: COVID pending for negative. Afebrile overnight. Cultures no growth today. Patient is currently on 2 L/min of oxygen. Patient is coming of shortness of breath. She is coming of nonproductive cough. She is coming of constipations with abdominal distention's. She is complaining of general body swelling. Saline lock. Lasix 40 Mg IV twice daily. We will recheck serum potassium level at this afternoon. Continue empiric antibiotics Rocephin and Zithromax for pneumonia. Continue to titrate supplemental oxygen's in order to keep oxygen saturations above 92%. Colace/Senna/Miralax/Milk of Mag/Lactulose for constipation. 11/06: Afebrile overnight. Urine culture grew jim sensitive E coli; blood culture no growth to date. Patient is currently on 2 L/min of oxygen. Improving degree of shortness of breath. She is complaining of nonproductive cough. She is coming of respiratory wheezing. She is complaining of fever, chills, and diaphoresis. Lasix 20mg PO BID. Continue potassium oral replacement. Continue Rocephin and Zithromax for pneumonia/UTI. Continue to titrate supplemental oxygen's in order to keep oxygen saturations above 92%. Colace/Senna/Miralax/Milk of Mag/Lactulose for constipation. 11/07: Afebrile overnight. Patient is currently on 2 L/min of oxygen. Improving degree of shortness of breath. She is complaining of nonproductive cough. She is coming of respiratory wheezing. Denies fever, chills, and diaphoresis. Still have not have bowel movement. Lasix 20mg PO BID. Continue potassium oral replacement. Continue Rocephin and Zithromax for pneumonia/UTI. Continue to titrate supplemental oxygen's in order to keep oxygen saturations above 92%. Colace/Senna/Miralax/Milk of Mag/Lactulose for constipation. Will add glycerin supp PRN constipation. Physical therapy evaluation and treatment. 11/08: Afebrile overnight. Patient is currently on 2 L/min of oxygen. Still have no bowel movement. Same degree of shortness of breath. Denies cough, sputum production, or respiratory wheezing. c/o fever, chills, and diaphoresis. Lasix 20mg PO BID. Continue potassium oral replacement. Continue Rocephin and Zithromax for pneumonia/UTI. Continue to titrate supplemental oxygen's in order to keep oxygen saturations above 92%. Colace/Senna/Miralax/Milk of Mag/Lactulose/glycerin suppositories for constipation. Physical therapy evaluation and treatment. 11/09: The patient states that she has no history of congestive heart failure. She is morbidly obese and has been mainly bedbound. She remains on supplemental O2. She has now completed a course of antibiotics. She worked with physical therapy and Occupational Therapy and it is unclear whether she wants to go to detention facility versus home with home health #ADDENDUM -Patient will be discharged home with HH today as per her request. She will have her lasix increased, and will need home O2. Discharge diagnosis: Lobar pneumonia, UTI, pulmonary edema Time Spent with Patient Time attestation: Total time spent providing and/or coordinating discharge services: Time spent: Greater than 30 minutes EXAM Constitutional Vitals: Temp Pulse Resp BP Pulse Ox O2 Del Method O2 Flow Rate 97.1 F 72 16 124/70 94 1 11/09/21 12:00 11/09/21 12:00 11/09/21 12:00 11/09/21 12:00 11/09/21 12:11/09/21 12:00 11/09/21 04:04 General appearance: average body habitus Head Head exam: Present atraumatic, normal inspection and normocephalic Eye Eye exam: Present EOMI, normal appearance and PERRL; Absent conjunctival injection ENT ENT exam: Present normal exam; Absent mucous membranes dry Neck Neck exam: Present full ROM; Absent lymphadenopathy Respiratory Respiratory exam: Present normal respiratory exam and CTAB; Absent decreased breath sounds, respiratory distress or wheezes Cardiovascular Cardiovascular exam: Present normal rate and rhythm and RRR; Absent JVD GI/Abdominal GI/Abdominal exam: Present normal bowel sounds and soft; Absent diminished bowel sounds, distended, guarding, mass, rebound or tenderness Neurological Exam Neurological exam: Present alert, CN II-XII intact and oriented X3 Psychiatric Psychiatric exam: Present normal affect and normal mood Skin Skin exam: Present intact and warm; Absent erythema, pallor, petechiae or rash Discharge Plan Patient/Caregiver Discharge Instructions Activity: increase activity as tolerated Diet: Regular Diet Instructions: Using Oxygen at Home (DC) Prescriptions: New furosemide 20 mg Tablet 20 mg PO BIDD 30 Days Qty: 60 0RF Continued montelukast 10 mg tablet See Rx Instructions .ROUTE .COMPLEX Qty: 90 3RF Dose Instruction: TAKE 1 TABLET BY MOUTH EVERY EVENING Rx Instructions: TAKE 1 TABLET BY MOUTH EVERY EVENING albuterol sulfate [Ventolin HFA] 90 mcg/actuation HFA aerosol inhaler 2 puff inhalation .Q4-6H PRN (Reason: bronchospasm) Qty: 18 1RF Rx Instructions: administer with aerochamber spacer sertraline 100 mg tablet 100 mg PO QDAY Qty: 90 3RF omeprazole 40 mg capsule,delayed release(DR/EC) 40 mg PO QDAY Qty: 90 1RF bupropion HCl 150 mg tablet sustained-release 12 hr 150 mg PO DAILY Rx Instructions: TAKE 1 TABLET BY MOUTH DAILY Discontinued furosemide 40 mg tablet 40 mg PO Q OTHER DAY Qty: 30 0RF Rx Instructions: Can try 1/2 tab Other Ambulatory Orders: Home Oxygen Order (Routine) Location: None Selected Ordered By: Tory Stauffer Follow Up Plan Follow up with: Crow Masters MD [Primary Care Provider] - Patient Disposition: Home Health Service Prognosis: Fair Rehab Potential: Good I certify that the patient requires SNF services: No Overall status at discharge: patient is progressing back to baseline Discharge Orders: Discharge Order (Routine); Ordered 11/09/21 Ordered By: Tory Stauffer QUALITY VTE Deep Vein Thrombosis/Pulmonary Embolism Present on Admission: No
== END 2021-11-09 15:55 | disposition home health service (06) | DRG 871 ==
LOC: ED 17:57 → MEDSUR 21:57
PROVIDERS: ADMIT Internal Medicine; ATTEND Student in an Organized Health Care Education/Training Program

== ENCOUNTER 2022-04-05 22:50 | Inpatient (IN) ==
[2022-04-05] MEDS: morphine 4 MG/ML VIAL IV PRN (23:19)
[2022-04-05 23:41] LABS: Basophils # (Auto) 0.06 K/mcL (0.00-0.30); Basophils % (Auto) 0.6 % (0.0-2.0); Eosinophils % (Auto) 4.8 % (0.0-7.0); Hematocrit 40.3 % (34.1-44.9); Lymphocytes # (Auto) 3.48 K/mcL (1.50-4.80); Lymphocytes % (Auto) 33.3 % (15.5-49.0); Mean Cell Volume 92.9 fL (80.0-100.0); Mean Corpuscular HGB Conc 32.3 g/dL (31.0-36.0); Mean Platelet Volume 9.9 fL (8.8-12.5); Monocytes # (Auto) 0.59 K/mcL (0.10-0.90); Monocytes % (Auto) 5.7 % (1.0-12.0); Neutrophils % (Auto) 55.1 % (38.0-78.0); Platelet Count 301 K/mcL (140-440); RBC 4.34 M/mcL (3.59-5.38); Red Cell Distribution Width 12.8 % (11.5-14.5); WBC 10.4 K/mcL (4.5-11.0)
[2022-04-05] MEDS ORDERED: HYDROmorphone 1 MG/ML SYRINGE IV ONE (23:53)
[2022-04-05 23:59] LABS: INR 0.9 (0.9-1.1); Prothrombin Time 12.1 sec (11.9-14.5)
[2022-04-06] LABS: ALT/SGPT 15 U/L (<40); AST/SGOT 16 U/L (<32); Albumin/Globulin Ratio 1.3 (1.0-2.3); Alkaline Phosphatase 98 U/L (39-117); Bilirubin,Total < 0.2 mg/dL (0.1-1.0); Blood Urea Nitrogen 14 mg/dL (8-23); Calcium 9.4 mg/dL (8.6-10.4); Carbon Dioxide 29 mmol/L (22-30); Chloride 102 mmol/L (96-108); Glomerular Filtration Rate 70; Glucose 91 mg/dL (70-105)
--- NOTE | 2022-04-06 00:10 | Emergency Department Note ---
Lower Extremity Injury HPI General Chief Complaint: Extremity Injury, Lower Stated Complaint: RLE injury Time Seen by Provider: 04/05/22 23:02 Source: patient and EMS Mode of arrival: EMS History of Present Illness HPI Narrative: Narrative: This is a 76-year-old female with a history of osteoporosis, hypertension who presents to the emergency department with right hip pain. Patient reports she has a prior history of left hip fracture. She reports that she gets around with a walker since this injury she has a IM nail in the left hip by Dr. Ramirez. Patient denies any anticoagulant use. Patient has not been able to bear weight on her right lower extremity since her fall. She reports that she slipped on tile this was nonsyncopal. Related Data Home Medications Medication Instructions Recorded Confirmed potassium chloride 10 mEq 10 meq PO QDAY 04/07/22 04/07/22 tablet,extended release (Klor-Con) Previous Rx's Medication Instructions Recorded montelukast 10 mg tablet See Rx Instructions .Route 08/10/21 .COMPLEX #90 tabs omeprazole 40 mg capsule,delayed 40 mg PO QDAY #90 caps 08/10/21 release sertraline 100 mg tablet 100 mg PO QDAY #90 tabs 08/10/21 albuterol sulfate 90 mcg/actuation 2 puff inhalation .Q4-6H PRN 11/18/21 aerosol inhaler (Ventolin HFA) bronchospasm #18 grams furosemide 20 mg tablet 20 mg PO BIDD 30 days #60 tabs 03/28/22 Allergies Allergy/AdvReac Type Severity Reaction Status Date / Time ibandronate sodium Allergy Severe Anaphylaxis Verified 04/05/22 22:54 [From Boniva] Raloxifene [From Evista] Allergy Severe Anaphylaxis Verified 04/05/22 22:54 naproxen [From Aleve] Allergy Mild Hives Verified 04/05/22 22:54 Sulfa (Sulfonamide Allergy Mild RASH Verified 04/05/22 22:54 Antibiotics) levofloxacin [From LEVAQUIN] AdvReac Mild MUSCLE Verified 04/05/22 22:54 CRAMPING Review of Systems ROS ROS Narrative: Narrative: All systems ED: reviewed and negative except as stated. PFSH Narrative Patient History Narrative: Narrative: Medical/Surgical/Family History All Active Problems Closed intertrochanteric fracture of right femur (Acute) Intertrochanteric fracture of right hip (Acute) Anxiety disorder (Chronic) Chest pain (Chronic) Chronic cough (Chronic) Depression (Chronic) Diverticulosis of colon (Chronic) Edema (Chronic 09/11/13) Eosinophilic esophagitis (Chronic) Esophageal ring (Chronic) Esophageal spasm (Chronic) Gallbladder disorder (Chronic) Hiatal hernia (Chronic) Indigestion (Chronic) Low back pain (Chronic) Lumbar compression fracture (Chronic) Migraine (Chronic) Myalgia (Chronic) Osteoarthrosis (Chronic) Osteopenia (Chronic) Osteoporosis (Chronic) Sexually transmitted disease (Chronic) Closed compression fracture of thoracic vertebra (Chronic) Trochanteric bursitis (Chronic) Hx of appendectomy (Chronic) History of back surgery (Chronic) H/O colonoscopy (Chronic 03/17/10) H/O esophagogastroduodenoscopy (Chronic 02/25/14) H/O: hysterectomy (Chronic) History of mandibular surgery (Chronic) H/O surgical procedure (Chronic) Hx of tonsillectomy (Chronic) H/O surgical procedure (Chronic) Encounter for Health Maintenance Examination in Adult (Chronic) Abnormal Electrocardiogram (Chronic) Abnormal electrocardiography (Chronic) Bronchitis (Chronic) Microhematuria (Chronic) Fall from slip, trip, or stumble (Chronic) Fracture of humeral head, right, closed (Chronic) Influenza vaccine refused (Chronic) Hyperlipidemia (Chronic) Immunization deficiency (Chronic) Left upper quadrant abdominal pain (Chronic) Spasm of esophagus (Chronic) Postlaminectomy syndrome (Chronic) Radiculopathy, lumbosacral region (Chronic) Chronic pain (Chronic) Postlaminectomy syndrome, not elsewhere classified (Chronic) Radiculopathy, lumbar region (Chronic) Compression fracture of vertebra (Chronic) Recurrent pneumonia (Chronic) Right knee pain (Chronic) Left hip pain (Chronic) Displaced intertrochanteric fracture of left femur, subsequent encounter for closed fracture with routine healing (Chronic) Chronic SI joint pain (Acute) Sepsis (Acute) Pneumonia involving right lung (Acute) Elevated procalcitonin (Acute) Acute UTI (Acute) UTI (urinary tract infection) (Acute) Depression with anxiety (Acute) Hypokalemia (Acute) CHF (congestive heart failure) (Acute) Urinary incontinence (Chronic) Medical History Abnormal Electrocardiogram Anxiety disorder (03/12/14-Dr Bedoya) Chest pain (03/12/14-Dr Bedoya) Chronic cough Chronic pain Closed compression fracture of thoracic vertebra Compression fracture of vertebra Depression Displaced intertrochanteric fracture of left femur, subsequent encounter for closed fracture with routine healing Diverticulosis of colon 03/17/10 Colonoscopy--Dr. Mehta--rare diverticula left colon; small mucosal defect in rectum. Edema (09/11/13) Encounter for Health Maintenance Examination in Adult Eosinophilic esophagitis Esophageal ring 12/15/2010 EGD with biopsy--Dr. Mehta--Hiatal hernia, rule out short segment Cornell's esophagus; esophageal ring, dilated; esophageal spasm. Esophageal spasm 12/15/2010 EGD with biopsy--Dr. Mehta--Hiatal hernia, rule out short segment Cornell's esophagus; esophageal ring, dilated; esophageal spasm. Gallbladder disorder 1990 Hiatal hernia 12/15/2010 EGD with biopsy--Dr. Mehta--Hiatal hernia, rule out short segment Cornell's esophagus; esophageal ring, dilated; esophageal spasm. Immunization deficiency Indigestion Left hip pain Left upper quadrant abdominal pain Low back pain S/P lumbar decompression and fusion approx. February,--followed through Dr. Dougherty. Lumbar compression fracture Migraine Myalgia (03/12/14-Dr Bedoya) Osteoarthrosis Osteopenia 09/12/06 Bone Density--Spine T-score -3.5; Hip T-score -2.2. 03/28/13 Bone Density--Femoral neck T-score -2.2 (osteopenia); distal wrist T-score -2.7 (moderate osteoporosis) Osteoporosis 09/12/06 Bone Density--Spine T-score -3.5; Hip T-score -2.2. 03/28/13 Bone Density--Femoral neck T-score -2.2 (osteopenia); distal wrist T-score -2.7 (moderate osteoporosis) Postlaminectomy syndrome Postlaminectomy syndrome, not elsewhere classified Radiculopathy, lumbar region Radiculopathy, lumbosacral region Recurrent pneumonia Right knee pain Sexually transmitted disease Herpes Spasm of esophagus Trochanteric bursitis Hip region (03/17/2014-Dr Polo) Surgical History H/O colonoscopy (03/17/10) 03/17/10 Colonoscopy--Dr. Mehta--rare diverticula left colon; small mucosal defect in rectum. H/O esophagogastroduodenoscopy (02/25/14) 02/25/2014-see path report 12/19/13-see path report 12/15/2010 EGD with biopsy--Dr. Mehta--Hiatal hernia, rule out short segment Cornell's esophagus; esophageal ring, dilated; esophageal spasm. 05/15/2013-- Rule out esophagitis; eshophageal ring-dilated, minor gastritis. 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 H/O: hysterectomy 1986 History of back surgery 2012 (04/15/14-Dr Caputo)Thoracic History of hip surgery (07/28/20) left cephalomedullary nailing History of mandibular surgery (04/15/14-Dr Caputo) History of surgery SCS Trial T7-9 w/sed 12/12/1708/25 SCS Trial T7-9 w/sed 08/09/1703/22 Vertebroplasty T9, T11 w/sed 03/19/1301/20 TESI #1 T10-11 w/o sed 01/29/201310/20 TF STEWART #2 Right L3-4 w/o sed 10/29/1209/20 LESI #1 L4-5 w/o sed 10/03/2012 History of surgery SCS perm 01/19/2018 [facility] Hx of appendectomy (04/15/14-Dr Caputo) Hx of tonsillectomy (04/15/14-Dr Caputo) Family History Grandmother Rheumatoid arthritis Social History Smoking Status: Former smoker Alcohol Intake Frequency: 0-2 drinks per day Substance Use: does not use Exam Narrative Narrative: Narrative: Vital signs noted General: Awake. Alert. No distress. HEENT: NCAT PERRL EOMI. No conjunctivitis. Membranes moist. Neck: Supple, trachea midline Cardiovascular: RRR. No murmur. No rubs. No gallops. Respiratory: No respiratory distress. Breath sounds equal. Lungs clear. Gastrointestinal: Soft. No tenderness Musculoskeletal: Tenderness to palpation of the right hip, she has palpable DP pulse she is able to wiggle toes Skin: Warm. Dry. No rash Neurologic: Alert and oriented x3 moves all extremities equally and fully, speech is fluent face is symmetric Course Vital Signs Vital signs: Vital Signs Temperature 98.3 F 04/05/22 22:50 Pulse Rate 77 04/05/22 22:50 Respiratory Rate 18 04/05/22 22:50 Pulse Oximetry (%) 96 04/05/22 22:50 Oxygen Delivery Method 04/05/22 22:50 Temperature 96.8 F L 04/11/22 23:18 Pulse Rate 63 04/11/22 23:18 Respiratory Rate 20 04/11/22 23:18 Blood Pressure 117/64 04/11/22 23:18 Pulse Oximetry (%) 94 04/11/22 23:18 Oxygen Delivery Method 04/11/22 23:18 Oxygen Flow Rate (L/min) 1 04/09/22 15:51 MDM MDM Narrative Medical decision making narrative: Narrative: Patient found to have right intertrochanteric hip fracture. I have spoke with Dr. Roberson patient will be admitted to the hospitalist service. We currently do not have any beds patient will be boarded in the emergency department overnight. Patient was given morphine, Dilaudid and Robaxin for her pain. Lab Data Result diagrams: 04/05/22 23:17 04/05/22 23:13 Labs: Lab Results 04/05/22 04/05/22 04/05/22 Range/Units 23:13 23:14 23:17 WBC 10.4 (4.5-11.0) K/mcL RBC 4.34 (3.59-5.38) M/mcL Hgb 13.0 (11.2-15.7) g/dL Hct 40.3 (34.1-44.9) % MCV 92.9 (80.0-100.0) fL MCH 30.0 (26.0-34.0) pg MCHC 32.3 (31.0-36.0) g/dL RDW 12.8 (11.5-14.5) % Plt Count 301 (140-440) K/mcL MPV 9.9 (8.8-12.5) fL Immature Gran % (Auto) 0.5 (0.0-0.5) % Neut % (Auto) 55.1 (38.0-78.0) % Lymph % (Auto) 33.3 (15.5-49.0) % [place] % (Auto) 5.7 (1.0-12.0) % Eos % (Auto) 4.8 (0.0-7.0) % Baso % (Auto) 0.6 (0.0-2.0) % Lymph # (Auto) 3.48 (1.50-4.80) K/mcL [place] # (Auto) 0.59 (0.10-0.90) K/mcL Eos # (Auto) 0.50 (0.00-0.70) K/mcL Baso # (Auto) 0.06 (0.00-0.30) K/mcL Immature Gran # 0.05 (0.00-0.05) K/mcl Absolute Neutrophils 5.76 (1.80-8.00) K/mcL PT 12.1 (11.9-14.5) sec INR 0.9 (0.9-1.1) Sodium 142 (133-145) mmol/L Potassium 3.8 (3.3-5.1) mmol/L Chloride 102 (96-108) mmol/L Carbon Dioxide 29 (22-30) mmol/L Anion Gap 11.0 (8.0-16.0) BUN 14 (8-23) mg/dL Creatinine 0.8 (0.6-1.1) mg/dL GFR Calculation 70 Glucose 91 (70-105) mg/dL Calcium 9.4 (8.6-10.4) mg/dL Total Bilirubin < 0.2 (0.1-1.0) mg/dL AST 16 (<32) U/L ALT 15 (<40) U/L Alkaline Phosphatase 98 (39-117) U/L Total Protein 7.0 (5.9-8.4) gm/dL Albumin 4.0 (3.2-5.2) gm/dL Globulin 3.0 (2.2-3.7) gm/dL Albumin/Globulin Ratio 1.3 (1.0-2.3) Urine Color Urine Appearance (Clear) Urine pH (5.0-9.0) Ur Specific [place] (1.000-1.035) Urine Protein (Negative) mg/dL Urine Glucose (UA) (Negative) mg/dL Urine Ketones (Negative) mg/dL Urine Occult Blood (Negative) mg/dL Urine Nitrate (Negative) Urine Bilirubin (Negative) mg/dL Urine Urobilinogen mg/dL Ur Leukocyte Esterase (Negative) /uL Urine RBC (0-3) /hpf Urine WBC (0-4) /hpf Ur Squamous Epith Cells (0-4) /hpf Ur Transition Epith Cell (0-2) /hpf Calcium Oxalate Crystal (None) /hpf Urine Bacteria (0) /hpf Hyaline Casts (0-2) /lph Urine Mucus (None) /hpf Ur Culture Indicated? 04/06/22 Range/Units 01:26 WBC (4.5-11.0) K/mcL RBC (3.59-5.38) M/mcL Hgb (11.2-15.7) g/dL Hct (34.1-44.9) % MCV (80.0-100.0) fL MCH (26.0-34.0) pg MCHC (31.0-36.0) g/dL RDW (11.5-14.5) % Plt Count (140-440) K/mcL MPV (8.8-12.5) fL Immature Gran % (Auto) (0.0-0.5) % Neut % (Auto) (38.0-78.0) % Lymph % (Auto) (15.5-49.0) % [place] % (Auto) (1.0-12.0) % Eos % (Auto) (0.0-7.0) % Baso % (Auto) (0.0-2.0) % Lymph # (Auto) (1.50-4.80) K/mcL [place] # (Auto) (0.10-0.90) K/mcL Eos # (Auto) (0.00-0.70) K/mcL Baso # (Auto) (0.00-0.30) K/mcL Immature Gran # (0.00-0.05) K/mcl Absolute Neutrophils (1.80-8.00) K/mcL PT (11.9-14.5) sec INR (0.9-1.1) Sodium (133-145) mmol/L Potassium (3.3-5.1) mmol/L Chloride (96-108) mmol/L Carbon Dioxide (22-30) mmol/L Anion Gap (8.0-16.0) BUN (8-23) mg/dL Creatinine (0.6-1.1) mg/dL GFR Calculation Glucose (70-105) mg/dL Calcium (8.6-10.4) mg/dL Total Bilirubin (0.1-1.0) mg/dL AST (<32) U/L ALT (<40) U/L Alkaline Phosphatase (39-117) U/L Total Protein (5.9-8.4) gm/dL Albumin (3.2-5.2) gm/dL Globulin (2.2-3.7) gm/dL Albumin/Globulin Ratio (1.0-2.3) Urine Color Yellow Urine Appearance Hazy A (Clear) Urine pH 5.0 (5.0-9.0) Ur Specific [place] 1.016 (1.000-1.035) Urine Protein Negative (Negative) mg/dL Urine Glucose (UA) Negative (Negative) mg/dL Urine Ketones Negative (Negative) mg/dL Urine Occult Blood 0.03 (Negative) mg/dL Urine Nitrate Pos A (Negative) Urine Bilirubin Negative (Negative) mg/dL Urine Urobilinogen Negative mg/dL Ur Leukocyte Esterase Negative (Negative) /uL Urine RBC 2 (0-3) /hpf Urine WBC 10 H (0-4) /hpf Ur Squamous Epith Cells 0 (0-4) /hpf Ur Transition Epith Cell < 1 (0-2) /hpf Calcium Oxalate Crystal Few A (None) /hpf Urine Bacteria Many A (0) /hpf Hyaline Casts 2 (0-2) /lph Urine Mucus Many A (None) /hpf Ur Culture Indicated? yes Discharge Plan Patient/Caregiver Discharge Instructions Pt seen by [facility] REPAIRER/PA only: No Clinical Impression: Closed intertrochanteric fracture of right femur Qualifiers: Encounter type: initial encounter Fracture alignment: displaced Qualified Code(s): S72.141A - Displaced intertrochanteric fracture of right femur, initial encounter for closed fracture Patient Disposition: Xfer As Inpt ([facility]) Condition: Fair Discharge Date/Time: 04/06/22 07:04
[2022-04-06] MEDS ORDERED: METHOCARBAMOL 1,000 MG/10 ML VIAL IV ONE (01:30)
[2022-04-06] MEDS: morphine 4 MG/ML VIAL IV PRN (01:45)
[2022-04-06 02:44] LABS: Appearance,Urine HAZY (Clear); Bacteria,Urine MANY /hpf (0); Bilirubin,Urine Negative (Negative); Calcium Oxalate Crystals,Urine FEW /hpf; Color,Urine YELLOW; Culture Indicated,Urine yes; Glucose,Urine (UA) Negative (Negative); Ketones,Urine Negative (Negative); Leukocyte Esterase,Urine Negative /uL (Negative); Mucus,Urine MANY /hpf; Nitrate,Urine POS (Negative); Protein,Urine Negative (Negative); Specific Gravity,Urine 1.016 (1.000-1.035); Urine Blood 0.03 mg/dL (Negative); Urine Hyaline Cast 2 /lph (0-2); Urine RBC 2 /hpf (0-3); Urine Squamous Epithelial Cell 0 /hpf (0-4); Urine Transitional Epi Cells < 1 /hpf (0-2); Urine WBC 10 /hpf (0-4); Urobilinogen,Urine Negative
[2022-04-06] MEDS ORDERED: ONDANSETRON 4 MG/2 ML VIAL IV PRN ×2 (06:47→12:01)
[2022-04-06] MEDS ORDERED: NITROGLYCERIN 0.4 MG TAB.SUBL SL PRN (06:50)
[2022-04-06] MEDS ORDERED: traZODone HCL 50 MG TABLET PO PRN (06:50)
[2022-04-06] MEDS ORDERED: ALBUTEROL SULFATE 2.5 MG/3 ML NEBULIZER NEB PRN (06:50)
[2022-04-06] MEDS ORDERED: NALOXONE HCL 0.4 MG/ML VIAL IV PRN ×2 (06:50→12:01)
[2022-04-06] MEDS: DEXTROSE 5%-1/2NS 1,000 ML IV SCH (07:32)
[2022-04-06] MEDS: HYDROmorphone 0.5 MG/0.5 ML SYRINGE IV PRN ×3 (07:32→23:55)
--- NOTE | 2022-04-06 07:57 | XRay Report ---
HISTORY: Fell, preop for repair of hip fracture FINDINGS: The lungs are clear normally expanded. Heart size is upper limits of normal but magnified. There is no congestive heart failure or pleural effusion. Patient has spinal stimulator in the midthoracic spinal canal. There is cement in two lower thoracic vertebra following prior kyphoplasty' s. The right humeral head is deformed due to an old healed fracture. Comparison with prior x-ray done on 11/25/21 shows resolution of previously seen thin band of discoid atelectasis located medially in the right lower lobe. IMPRESSION: Normal exam Interpreted and Authenticated by: Greg Barton 04/06/22
--- NOTE | 2022-04-06 08:02 | XRay Report ---
HISTORY: Fell, right hip injury FINDINGS: There is an acute fracture in the proximal right femur. It extends from the lateral margin of the greater trochanter to the interface between the medial portion of the femoral neck and the intertrochanteric region. There is varus angulation. Femoral head is normal. There has minor joint space narrowing due to mild arthritis. No spur formation is present. There is an old intertrochanteric fracture of the left proximal femur which is held in alignment by metal hardware. The fracture through the lesser trochanter has not fully healed. The alignment is unchanged from prior x-ray done on 11/22/21. There is some radiopaque material which may be cement deep in the right lower pelvis. This was present on the prior exam. Patient has had prior lumbar fusion using pedicle screws at L3-L4 there is a spinal stimulator power pack in the right flank. IMPRESSION: Intertrochanteric fracture of the right hip Interpreted and Authenticated by: Greg Barton 04/06/22
--- NOTE | 2022-04-06 08:03 | XRay Report ---
HISTORY: Fell, right knee injury FINDINGS: No fracture dislocation or degenerative change are present. There is no joint effusion or foreign body. IMPRESSION: Normal exam Interpreted and Authenticated by: Greg Barton 04/06/22
[2022-04-06] MEDS: DOCUSATE SODIUM 100 MG CAPSULE PO SCH ×2 (08:26→21:05)
--- NOTE | 2022-04-06 10:11 | Consultation ---
DATE OF CONSULTATION: 04/06/2022 DATE OF CONSULTATION: 04/06/2022 REQUESTING PHYSICIAN: Addison Glaser MD CONSULTING PHYSICIAN: Gunnar Roberson MD REASON FOR CONSULTATION: Right intertrochanteric hip fracture. HISTORY OF PRESENT ILLNESS: This is a 76-year-old female who early this morning had a ground level fall resulting in severe right hip pain and inability to bear weight. She was taken to the Emergency Department and x-rays taken, which showed an intertrochanteric hip fracture. She denies loss of consciousness with the fall. She does have history of a left intertrochanteric hip fracture 2 years ago, treated by Dr. Ramirez. She states she has not been able to walk normal. wince that surgery. PAST MEDICAL HISTORY: Positive for gastroesophageal reflux, asthma, depression, hypertension, osteoporosis. MEDICATIONS: Montelukast. Omeprazole. Sertraline. Albuterol inhaler. Furosemide. ALLERGIES: IBANDRONATE, RALOXIFENE, NAPROXEN, SULFA, and LEVOFLOXACIN. PAST SURGICAL HISTORY: Extensive. Significant again for the prior left hip surgery done in 07/2000. SOCIAL HISTORY: She denies smoking. She has 0-2 drinks per day alcohol use. No illicit drug use. FAMILY HISTORY: Positive for a grandmother with rheumatoid arthritis. PHYSICAL EXAMINATION: VITAL SIGNS: On admission, temperature of 98.3, pulse 77, respirations 18, blood pressure 130/83. GENERAL: She appears her stated age, in no acute distress. She is somewhat lethargic but does respond to questions, however. She tends to fall asleep while talking to her. HEART: Regular. LUNGS: Clear. EXTREMITIES: Her right lower extremity is exquisitely tender to palpation over the trochanter. She has limited range of motion secondary to pain. Distally, pulses are palpable at the dorsalis pedis and sensation to light touch is grossly intact. IMAGING: X-rays reviewed, shows a right angulated left intertrochanteric hip fracture. IMPRESSION: Closed right intertrochanteric hip fracture in a 76-year-old female with osteoporosis. PLAN: I discussed with her I would recommend proceeding with an open treatment and internal fixation of the right intertrochanteric hip fracture with intramedullary fixation similar to her left hip. I discussed with her the risks of surgery, which include, but not limited to, bleeding; infection; injury to nerves, blood vessels, other surrounding structures, anesthetic risks; nonunion or malunion of the fracture; failure of hardware fixation, DVT and pulmonary embolus risks. She understands these risks and wishes to proceed. We will proceed later this morning. [email or web address] Job ID: [id number] Doc ID: [id number] Gunnar Roberson MD
--- NOTE | 2022-04-06 10:14 | Internal Med History&Physical ---
HPI History of Present Illness Patient information: Note initiated : 04/06/22 at 10:14 am Service Date, if different from initiated Date: [] Patient: Farhat Milian a 76 y/o F admitted on 04/06/22 for RLE injury. Chief Complaint: [] History of present illness: Ms. Milian is a 76 year old F with h/o CHF with presevered LVEF (55-60 in 11/29) presented to the ER after a ground level fall, po dizziness, no Chest pain no loss of consciousness no head injury. She developed pain in the right hip and she came to the ED for further evaluation.The patient reports pain with ambulation, which is severe, she is unable to weight-bear on that leg. The patient denies any chest pain, denies any shortness of breath, denies any nausea or vomiting, denies any acute bowel bladder issues. The patient denies any history of coronary artery disease, history of chronic kidney disease, denies any diabetes denies any stroke, denies any chest pain with ambulation.She does have a history of heart failure, but heart failure with preserved ejection fraction. On arrival to the emergency room she is hemodynamically stable,X-ray of the hip shows right femur fracture, orthopedics was consulted patient will be going to the OR today. Patient will be admitted to medicine for further management. Review of Systems Review of systems: CONSTITUTIONAL: No weight loss, fever, chills, weakness or fatigue. HEENT: Eyes: No visual loss, blurred vision, double vision or yellow sclerae. Ears, Nose, Throat: No hearing loss, sneezing, congestion, runny nose or sore throat. SKIN: No rash or itching. CARDIOVASCULAR: No chest pain, chest pressure or chest discomfort. No palpitations or edema. RESPIRATORY: No shortness of breath, cough or sputum. GASTROINTESTINAL: No nausea, vomiting or diarrhea or constipation. No abdominal pain or blood in stools No Rita. GENITOURINARY: Denies Burning on urination. Blood in urine, or foul smelling urine NEUROLOGICAL: No headache, dizziness, syncope, paralysis, tremors, numbness or tingling in the extremities. No change in bowel or bladder control. MUSCULOSKELETAL: No muscle, back pain, joint pain or stiffness. (right hip pain) HEMATOLOGIC: No bleeding or bruising. No enlarged nodes PSYCHIATRIC: No depression or anxiety. ENDOCRINOLOGIC: No reports of sweating, cold or heat intolerance. No polyuria or polydipsia. ALLERGIES: No hives, eczema or rhinitis. Skin: No rash, no jaundice, cyanosis or pallor. PFSH PFSH All Active Problems Closed intertrochanteric fracture of right femur (Acute) Intertrochanteric fracture of right hip (Acute) Anxiety disorder (Chronic) Chest pain (Chronic) Chronic cough (Chronic) Depression (Chronic) Diverticulosis of colon (Chronic) Edema (Chronic 09/11/13) Eosinophilic esophagitis (Chronic) Esophageal ring (Chronic) Esophageal spasm (Chronic) Gallbladder disorder (Chronic) Hiatal hernia (Chronic) Indigestion (Chronic) Low back pain (Chronic) Lumbar compression fracture (Chronic) Migraine (Chronic) Myalgia (Chronic) Osteoarthrosis (Chronic) Osteopenia (Chronic) Osteoporosis (Chronic) Sexually transmitted disease (Chronic) Closed compression fracture of thoracic vertebra (Chronic) Trochanteric bursitis (Chronic) Hx of appendectomy (Chronic) History of back surgery (Chronic) H/O colonoscopy (Chronic 03/17/10) H/O esophagogastroduodenoscopy (Chronic 02/25/14) H/O: hysterectomy (Chronic) History of mandibular surgery (Chronic) H/O surgical procedure (Chronic) Hx of tonsillectomy (Chronic) H/O surgical procedure (Chronic) Encounter for Health Maintenance Examination in Adult (Chronic) Abnormal Electrocardiogram (Chronic) Abnormal electrocardiography (Chronic) Bronchitis (Chronic) Microhematuria (Chronic) Fall from slip, trip, or stumble (Chronic) Fracture of humeral head, right, closed (Chronic) Influenza vaccine refused (Chronic) Hyperlipidemia (Chronic) Immunization deficiency (Chronic) Left upper quadrant abdominal pain (Chronic) Spasm of esophagus (Chronic) Postlaminectomy syndrome (Chronic) Radiculopathy, lumbosacral region (Chronic) Chronic pain (Chronic) Postlaminectomy syndrome, not elsewhere classified (Chronic) Radiculopathy, lumbar region (Chronic) Compression fracture of vertebra (Chronic) Recurrent pneumonia (Chronic) Right knee pain (Chronic) Left hip pain (Chronic) Displaced intertrochanteric fracture of left femur, subsequent encounter for closed fracture with routine healing (Chronic) Chronic SI joint pain (Acute) Sepsis (Acute) Pneumonia involving right lung (Acute) Elevated procalcitonin (Acute) Acute UTI (Acute) UTI (urinary tract infection) (Acute) Depression with anxiety (Acute) Hypokalemia (Acute) CHF (congestive heart failure) (Acute) Urinary incontinence (Chronic) Medical History Abnormal Electrocardiogram Anxiety disorder (03/12/14-Dr Bedoya) Chest pain (03/12/14-Dr Bedoya) Chronic cough Chronic pain Closed compression fracture of thoracic vertebra Compression fracture of vertebra Depression Displaced intertrochanteric fracture of left femur, subsequent encounter for closed fracture with routine healing Diverticulosis of colon 03/17/10 Colonoscopy--Dr. Mehta--rare diverticula left colon; small mucosal defect in rectum. Edema (09/11/13) Encounter for Health Maintenance Examination in Adult Eosinophilic esophagitis Esophageal ring 12/15/2010 EGD with biopsy--Dr. Mehta--Hiatal hernia, rule out short segment Cornell's esophagus; esophageal ring, dilated; esophageal spasm. Esophageal spasm 12/15/2010 EGD with biopsy--Dr. Mehta--Hiatal hernia, rule out short segment B arrett's esophagus; esophageal ring, dilated; esophageal spasm. Gallbladder disorder 1990 Hiatal hernia 12/15/2010 EGD with biopsy--Dr. Mehta--Hiatal hernia, rule out short segment Cornell's esophagus; esophageal ring, dilated; esophageal spasm. Immunization deficiency Indigestion Left hip pain Left upper quadrant abdominal pain Low back pain S/P lumbar decompression and fusion approx. February,--followed through Dr. Dougherty. Lumbar compression fracture Migraine Myalgia (03/12/14-Dr Bedoya) Osteoarthrosis Osteopenia 09/12/06 Bone Density--Spine T-score -3.5; Hip T-score -2.2. 03/28/13 Bone Density--Femoral neck T-score -2.2 (osteopenia); distal wrist T-score -2.7 (moderate osteoporosis) Osteoporosis 09/12/06 Bone Density--Spine T-score -3.5; Hip T-score -2.2. 03/28/13 Bone De nsity--Femoral neck T-score -2.2 (osteopenia); distal wrist T-score -2.7 (moderate osteoporosis) Postlaminectomy syndrome Postlaminectomy syndrome, not elsewhere classified Radiculopathy, lumbar region Radiculopathy, lumbosacral region Recurrent pneumonia Right knee pain Sexually transmitted disease Herpes Spasm of esophagus Trochanteric bursitis Hip region (03/17/2014-Dr Polo) Surgical History H/O colonoscopy (03/17/10) 03/17/10 Colonoscopy--Dr. Mehta--rare diverticula left colon; small mucosal defect in rectum. H/O esophagogastroduodenoscopy (02/25/14) 02/25/2014-see path report 12/19/13-see path report 12/15/2010 EGD with biopsy--Dr. Mehta--Hiatal hernia, rule out short segment Cornell's esophagus; esophageal ring, dilated; esophageal spasm. 05/15/2013-- Rule out esophagitis; eshophageal ring-dilated, minor gastritis. 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 H/O: hysterectomy 1987 History of back surgery 2012 (04/15/14-Dr Caputo)Thoracic History of hip surgery (07/28/20) left cephalomedullary nailing History of mandibular surgery (04/15/14-Dr Caputo) History of surgery SCS Trial T7-9 w/sed 12/12/1708/25 SCS Trial T7-9 w/sed 08/09/1703/22 Vertebroplasty T9, T11 w/sed 03/19/1301/20 TESI #1 T10-11 w/o sed 01/29/201310/20 TF STEWART #2 Right L3-4 w/o sed 10/29/1209/20 LESI #1 L4-5 w/o sed 10/03/2012 History of surgery SCS perm 01/19/2018 [facility] Hx of appendectomy (04/15/14-Dr Caputo) Hx of tonsillectomy (04/15/14-Dr Caputo) Family History Grandmother Rheumatoid arthritis Social History household members: spouse housing: house marital status: other: Children-2 smoking status: Former smoker alcohol intake frequency: 0-2 drinks per day substance use type: does not use MEDS/ALLERGIES Home Medications and Allergies Home Medications Medication Instructions Recorded Confirmed Type montelukast 10 mg tablet See Rx Instructions .Route 08/10/21 04/06/22 Rx .COMPLEX #90 tabs omeprazole 40 mg capsule,delayed 40 mg PO QDAY #90 caps 08/10/21 04/06/22 Rx release sertraline 100 mg tablet 100 mg PO QDAY #90 tabs 08/10/21 04/06/22 Rx albuterol sulfate 90 mcg/actuation 2 puff inhalation .Q4-6H PRN 11/18/21 04/06/22 Rx aerosol inhaler (Ventolin HFA) bronchospasm #18 grams furosemide 20 mg tablet 20 mg PO BIDD 30 days #60 tabs 03/28/22 04/06/22 Rx Allergies Allergy/AdvReac Type Severity Reaction Status Date / Time ibandronate sodium Allergy Severe Anaphylaxis Verified 04/05/22 22:54 [From Boniva] Raloxifene [From Evista] Allergy Severe Anaphylaxis Verified 04/05/22 22:54 naproxen [From Aleve] Allergy Mild Hives Verified 04/05/22 22:54 Sulfa (Sulfonamide Allergy Mild RASH Verified 04/05/22 22:54 Antibiotics) levofloxacin [From LEVAQUIN] AdvReac Mild MUSCLE Verified 04/05/22 22:54 CRAMPING EXAM Constitutional Vitals: Temp Pulse Resp BP Pulse Ox O2 Del Method O2 Flow Rate 98.4 F 88 20 123/56 95 2 04/06/22 07:59 04/06/22 07:59 04/06/22 07:59 04/06/22 07:59 04/06/22 07:59 04/06/22 07:59 04/06/22 07:59 Exam: GENERAL: The patient is a well-developed, well-nourished in no apparent distress. Is alert and oriented x3. VITAL SIGNS: Reviewed and as noted elsewhere. HEENT: Head is normocephalic and atraumatic. Extraocular muscles are intact. Pupils are equal, round, and reactive to light. Nares appeared normal. Mouth appears any without lesions. Mucous membranes are moist. NECK: Normal to inspection, Supple, No lymphadenopathy or thyromegaly. LUNGS: Air entry equal on both sides, no wheezing, crackles or rhonchi noted. No accessory muscles of respiration HEART: Regular rate and rhythm normal, S1 and S2 heard, no Gallop, S3 or Rub Noted, No Gross murmur heard. ABDOMEN: Soft, nontender, and nondistended. Positive bowel sounds. No hepatosplenomegaly was noted. EXTREMITIES: No cyanosis, clubbing, rash, lesions or helena, ext rotaion of right leg. . NEUROLOGIC: Cranial nerves II through XII are grossly intact. Motor and Sensory System Grossly Intact PSYCHIATRIC: Normal affect, Normal Mood. Appropriate Behavior. SKIN: No ulceration or wounds noted, No jaundice, No rash noted. DATA Data Completed and Pending Labs: Labs from last 24 hours 04/06/22 04/05/22 04/05/22 01:26 23:17 23:14 WBC 10.4 RBC 4.34 Hgb 13.0 Hct 40.3 MCV 92.9 MCH 30.0 MCHC 32.3 RDW 12.8 Plt Count 301 MPV 9.9 Immature Gran % (Auto) 0.5 Neut % (Auto) 55.1 Lymph % (Auto) 33.3 [place] % (Auto) 5.7 Eos % (Auto) 4.8 Baso % (Auto) 0.6 Lymph # (Auto) 3.48 [place] # (Auto) 0.59 Eos # (Auto) 0.50 Baso # (Auto) 0.06 Immature Gran # 0.05 Absolute Neutrophils 5.76 PT 12.1 INR 0.9 Sodium Potassium Chloride Carbon Dioxide Anion Gap BUN Creatinine GFR Calculation Glucose Calcium Total Bilirubin AST ALT Alkaline Phosphatase Total Protein Albumin Globulin Albumin/Globulin Ratio Urine Color Yellow Urine Appearance Hazy A Urine pH 5.0 Ur Specific [place] 1.016 Urine Protein Negative Urine Glucose (UA) Negative Urine Ketones Negative Urine Occult Blood 0.03 Urine Nitrate Pos A Urine Bilirubin Negative Urine Urobilinogen Negative Ur Leukocyte Esterase Negative Urine RBC 2 Urine WBC 10 H Ur Squamous Epith Cells 0 Ur Transition Epith Cell < 1 Calcium Oxalate Crystal Few A Urine Bacteria Many A Hyaline Casts 2 Urine Mucus Many A Ur Culture Indicated? yes 04/05/22 23:13 WBC RBC Hgb Hct MCV MCH MCHC RDW Plt Count MPV Immature Gran % (Auto) Neut % (Auto) Lymph % (Auto) [place] % (Auto) Eos % (Auto) Baso % (Auto) Lymph # (Auto) [place] # (Auto) Eos # (Auto) Baso # (Auto) Immature Gran # Absolute Neutrophils PT INR Sodium 142 Potassium 3.8 Chloride 102 Carbon Dioxide 29 Anion Gap 11.0 BUN 14 Creatinine 0.8 GFR Calculation 70 Glucose 91 Calcium 9.4 Total Bilirubin < 0.2 AST 16 ALT 15 Alkaline Phosphatase 98 Total Protein 7.0 Albumin 4.0 Globulin 3.0 Albumin/Globulin Ratio 1.3 Urine Color Urine Appearance Urine pH Ur Specific [place] Urine Protein Urine Glucose (UA) Urine Ketones Urine Occult Blood Urine Nitrate Urine Bilirubin Urine Urobilinogen Ur Leukocyte Esterase Urine RBC Urine WBC Ur Squamous Epith Cells Ur Transition Epith Cell Calcium Oxalate Crystal Urine Bacteria Hyaline Casts Urine Mucus Ur Culture Indicated? A/P Narrative A/P Narrative: A/P Right Femur Fracture, Intertrochanteric -Ortho consulted, OR today -DVT prophyalxis,. OT./PT per ortho Pre OP eval -RCRI 0, low cardiovascular risk for moderate risk surgery, no modifiable risk factores noted GERD -resume home meds once verified. Time Spent With Patient Time: Total time spent is greater than 50% in coordination of care (as documented) at patient's floor/unit and/or counseling patient: QUALITY VTE Deep Vein Thrombosis/Pulmonary Embolism Present on Admission: No
[2022-04-06] MEDS ORDERED: ONDANSETRON 4 MG/2 ML VIAL ONE (11:10)
[2022-04-06] MEDS ORDERED: MAGNESIUM SULFATE 2 GM/50 ML BAG IV ONE (11:10)
[2022-04-06] MEDS ORDERED: TRANEXAMIC ACID 1,000 MG/10 ML VIAL ONE (11:10)
[2022-04-06] MEDS ORDERED: KETAMINE 50 MG/ML Syringe (ANEST) IV ONE (11:10)
[2022-04-06] MEDS ORDERED: DEXAMETHASONE 10 MG/ML VIAL ONE (11:10)
[2022-04-06] MEDS ORDERED: PROPOFOL 200 MG/20 ML VIAL IV ONE (11:10)
[2022-04-06] MEDS ORDERED: LIDOCAINE HCL/PF 100 MG/5 ML SYRINGE IV ONE (11:10)
[2022-04-06] MEDS ORDERED: ceFAZolin 2 GM in DEXTROSE 5% IN WATER 50 ML IV SCH ×2 (11:15→19:30)
[2022-04-06] MEDS ORDERED: LACTATED RINGERS 250 ML IV PRN (12:01)
[2022-04-06] MEDS ORDERED: diphenhydrAMINE 50 MG/ML VIAL IV PRN (12:01)
[2022-04-06] MEDS ORDERED: MEPERIDINE 25 MG/ML VIAL IV PRN (12:01)
[2022-04-06] MEDS ORDERED: ACETAMINOPHEN 1,000 MG/100 ML BAG IV ONE (12:01)
[2022-04-06] MEDS ORDERED: PROMETHAZINE 25 MG/ML VIAL IV PRN (12:01)
[2022-04-06] MEDS ORDERED: IPRATROPIUM/ALBUTEROL 3 ML AMPUL.NEB NEB PRN (12:01)
[2022-04-06] MEDS ORDERED: MAGNESIUM HYDROXIDE 30 ML ORAL.SUSP PO PRN (12:10)
[2022-04-06] MEDS ORDERED: FLEETS ADULT ENEMA PR PRN (12:10)
[2022-04-06] MEDS ORDERED: BISACODYL 10 MG SUPP.RECT PR PRN (12:10)
[2022-04-06] MEDS ORDERED: POLYETHYLENE GLYCOL 3350 17 GM PACKET PO PRN (12:10)
--- NOTE | 2022-04-06 12:10 | Brief Operative Note ---
Brief Operative Note Date of procedure: 04/06/22 Pre-op diagnosis: Right hip intertrochanteric fracture Post-op diagnosis: same Procedure: Open treatment internal fixation w intramedullary fixation of right intertrochanteric hip fx Grafts/Implants: Yes (Laurie Gamma short 120 deg, 80mm lag screw) Anesthesia: GETA Findings: intertrochanteric hip fx Complications: none Surgeon: Gunnar Roberson Dump Motor Operator: Max Schwartz Estimated blood loss (cc): 350 Specimens Removed/Pathology: none sent Condition: stable Disposition: PACU
[2022-04-06] MEDS ORDERED: LACTATED RINGERS 1,000 ML IV SCH (12:15)
--- NOTE | 2022-04-06 12:25 | XRay Report ---
HISTORY: FINDINGS: IMPRESSION: 0.5 minutes of fluoroscopy time was used. Interpreted and Authenticated by: Greg Barton 04/06/22
[2022-04-06] MEDS: fentaNYL 100 MCG/2 ML VIAL IV PRN ×4 (12:54→13:03)
--- NOTE | 2022-04-06 13:26 | XRay Report ---
HISTORY: Postop repair fractured right hip FINDINGS: There is good alignment following open reduction internal fixation of the intertrochanteric fracture of the proximal right femur. The varus angulation seen preoperatively has been corrected. No other fracture has developed. IMPRESSION: Good alignment following internal fixation of the fractured proximal right femur Interpreted and Authenticated by: Greg Barton 04/06/22
[2022-04-06] MEDS: 0.9 % SODIUM CHLORIDE 10 ML SYRINGE IV SCH ×2 (13:59→20:55)
[2022-04-06] MEDS: 0.9 % SODIUM CHLORIDE 1,000 ML IV SCH ×3 (14:01→22:10)
[2022-04-06] MEDS: ceFAZolin 1 GM VIAL IV SCH (19:35)
[2022-04-06] MEDS: SENNOSIDES 1 TABLET PO SCH (20:55)
[2022-04-06] MEDS: oxyCODONE HCL 5 MG TABLET PO PRN (21:05)
[2022-04-06] MEDS: ACETAMINOPHEN 325 MG TABLET PO PRN (21:05)
[2022-04-07] MEDS: DEXTROSE 5%-1/2NS 1,000 ML IV SCH (01:49)
[2022-04-07] MEDS: oxyCODONE HCL 5 MG TABLET PO PRN ×3 (02:15→18:59)
[2022-04-07] MEDS: ACETAMINOPHEN 325 MG TABLET PO PRN ×2 (03:30→18:59)
[2022-04-07] MEDS: ceFAZolin 1 GM VIAL IV SCH (03:31)
[2022-04-07] MEDS: 0.9 % SODIUM CHLORIDE 1,000 ML IV SCH ×3 (04:43→15:12)
[2022-04-07] MEDS: 0.9 % SODIUM CHLORIDE 10 ML SYRINGE IV SCH ×3 (05:36→20:21)
--- NOTE | 2022-04-07 07:50 | Orthopedic Progress Note ---
SUBJECTIVE Subjective Patient information: Note initiated : 04/07/22 at 7:49 am Service Date, if different from initiated Date: [] Patient: Farhat Milian 76 y/o F admitted on 04/06/22 for RLE injury. Chief Complaint: Moderate pain. Constitutional Vitals: Vital Signs Temp Pulse Resp BP Pulse Ox O2 Del Method O2 Flow Rate 97.6 F 67 20 109/54 98 3 04/07/22 03:30 04/07/22 03:30 04/07/22 03:30 04/07/22 03:30 04/07/22 06:47 04/07/22 03:30 04/07/22 06:47 Period Temp Pulse Resp BP Sys/Zarco Pulse Ox O2 Del Method O2 Flow Rate Last 24 Hr 97.2 F-98.5 F 67-126 9-20 97-157/49-85 81-100 Nasal Cannula- Nasal Cannula, Oxymask 2-6 Intake and Output 04/06/22 04/07/22 04/07/22 19:59 03:59 11:59 Intake Total 920 1475 1165 Output Total 625 550 Balance 866 958 2329 Weight 200 lb 3.2 oz Intake & Output: Intake & Output 04/06/22 04/07/22 04/07/22 19:59 03:59 11:59 Intake Total 920 1475 1165 Output Total 625 550 Balance 605 869 5722 Weight 200 lb 3.2 oz Intake: IV 100 1000 1165 Sodium Chloride 0.9% 1,000 ml @ 1000 1165 125 mls/hr IV .Q8H [facility] Rx#: [id number] Oral 420 475 IV - Manual Only 400 Output: Urine Catheter Amount 275 550 Estimated Blood Loss 350 Other: Meal Dinner Percent of Meal Consumed 100% Feeding Ability Assist with Tray Set Up Urine Appearance Cloudy Clear Uretheral (Chavez) Clear Urine Color Yellow Dark Yellow Uretheral (Chavez) Yellow Urine Odor Strong Additional findings Additional findings: Bandages c/d/i NVI-distal OBJ DATA Labs CBC & Chem 7: 04/05/22 23:17 04/05/22 23:13 Labs: Abnormal Lab Results 04/06/22 01:26 Urine Appearance Hazy A Urine Nitrate Pos A Urine WBC 10 H Calcium Oxalate Crystal Few A Urine Bacteria Many A Urine Mucus Many A Meds: Medications Acetaminophen (Acetaminophen 325 Mg Tablet) 650 mg PO Q6HP PRN; Protocol PRN Reason: Per Pain Protocol/Fever > 101 Last Admin: 04/07/22 03:30 Dose: 650 mg Albuterol Sulfate (Albuterol Sulfate 2.5 Mg/3 Ml Nebulizer) 2.5 mg NEB Q2HP PRN PRN Reason: Shortness Of Breath Last Admin: 04/07/22 07:18 Dose: 2.5 mg Bisacodyl (Bisacodyl 10 Mg Supp.Rect) 10 mg MS Q2-3DAYS PRN PRN Reason: Constipation Docusate Sodium (Docusate Sodium 100 Mg Capsule) 100 mg PO BID MOSHE Last Admin: 04/06/22 21:05 Dose: 100 mg Heparin Sodium (Porcine) (Heparin 5,000 Unit/Ml Vial) 5,000 unit SQ Q12 MOSHE Hydromorphone HCl (Hydromorphone 0.5 Mg/0.5 Ml Syringe) 0.5 mg IV Q2HP PRN; Protocol PRN Reason: Per Pain Protocol Last Admin: 04/06/22 23:55 Dose: 0.5 mg Sodium Chloride (Sodium Chloride 0.9%) 1,000 mls @ 125 mls/hr IV .Q8H MOSHE Last Infusion: 04/07/22 07:32 Dose: 0 mls/hr Magnesium Hydroxide (Magnesium Hydroxide 30 Ml Oral.Susp) 30 ml PO BIDP PRN PRN Reason: Constipation Morphine Sulfate (Morphine 4 Mg/Ml Vial) 4 mg IV Q2HP PRN; Protocol PRN Reason: Per Pain Protocol Last Admin: 04/06/22 01:45 Dose: 4 mg Naloxone HCl (Naloxone Hcl 0.4 Mg/Ml Vial) 0.1 mg IV Q2MIN PRN PRN Reason: Opiate Reversal Nitroglycerin (Nitroglycerin 0.4 Mg Tab.Subl) 0.4 mg SL Q5M PRN PRN Reason: Chest Pain Ondansetron HCl (Ondansetron 4 Mg/2 Ml Vial) 4 mg IV Q6HP PRN PRN Reason: Nausea And Vomiting Oxycodone HCl (Oxycodone Hcl 5 Mg Tablet) 5 mg PO Q4HP PRN; Protocol PRN Reason: Per Pain Protocol Last Admin: 04/07/22 02:15 Dose: 5 mg Pneumococcal Polyvalent Vaccine (Pneumococcal 23-Perri P-Sac Vac 0.5 Ml Syringe) 0.5 ml IM .ONCE ONE Stop: 04/07/22 10:01 Polyethylene Glycol (Polyethylene Glycol 3350 17 Gm Packet) 17 gm PO DAILYP PRN PRN Reason: Constipation Senna (Sennosides 1 Tablet) 2 tab PO HS [facility] Last Admin: 04/06/22 20:55 Dose: Not Given Sodium Biphosphate/Sodium Phosphate (Fleets Adult Enema) 1 dose MS Q3-4DAYS PRN PRN Reason: Constipation Sodium Chloride (0.9 % Sodium Chloride 10 Ml Syringe) 10 ml IV Q8 [facility] Last Admin: 04/07/22 05:36 Dose: Not Given Trazodone HCl (Trazodone Hcl 50 Mg Tablet) 50 mg PO HSP PRN PRN Reason: Insomnia A/P Narrative A/P Narrative: 1 day s/p R hip IM nail for IT fx-stable Plan of Treatment: discharge to SNF per hospitalist. Time Spent With Patient Time: Total time spent is greater than 50% in coordination of care (as documented) at patient's floor/unit and/or counseling patient: Total time spent with greater than 50% in coordination of care (as documented) at patient's floor/unit and/or counseling patient:: less than 15 minutes
--- NOTE | 2022-04-07 09:32 | Operative Note ---
DATE OF OPERATION: 04/06/2022 DATE OF PROCEDURE: 04/06/2022 PREOPERATIVE DIAGNOSIS: Right hip intertrochanteric fracture. POSTOPERATIVE DIAGNOSIS: Right hip intertrochanteric fracture. PROCEDURE PERFORMED: Open treatment and internal fixation of a right intertrochanteric hip fracture with intramedullary fixation using a Leon gamma nail. SURGEON: Gunnar Roberson MD LAB NURSE: Mitch Schwartz PA-C. The expertise and technical skill of this provider were required throughout the case. The PA assisted with preoperative coordination, intraoperative retraction, wound closure, and dressing and splint application, as well as postoperative documentation and care coordination. ANESTHESIA: General. DRAINS: None. SPECIMENS: None. COMPLICATIONS: None. ESTIMATED BLOOD LOSS: 200 mL. POSTOPERATIVE CONDITION: Stable. INDICATIONS FOR SURGERY: This is a 76-year-old female who sustained a standing level fall early this morning; she had severe pain in her right hip and was unable to bear weight. She was taken to the Emergency Department. X-ray showed a displaced intertrochanteric hip fracture. FINDINGS AT SURGERY: Displaced intertrochanteric hip fracture. Post-fixation showed near anatomic alignment with hardware in good position. PROCEDURE IN DETAIL: The patient had been seen preoperatively and informed consent had been obtained after discussion of risks and benefits of surgery. Risks including, but not limited to, bleeding; infection; injury to nerves, blood vessels, other surrounding structures, anesthetic risks; nonunion or malunion of the fracture; failure of hardware fixation, DVT and pulmonary embolus risks; and the possibility of needing further surgeries. She understood and wished to proceed. Correct operative site was marked in the preoperative holding, and the patient was taken to the operating room. General anesthesia induced. She was carefully positioned on the fracture table and the right lower extremity was placed into mild traction with internal rotation. Left lower extremity was flexed and abducted and carefully padded out of the way. Fluoroscopy was brought in to verify fracture reduction in both AP and lateral views and then the right hip and lower extremity carefully prepped and draped in normal sterile fashion. Timeout was performed verifying patient name, operative site, and plan. Incision was made proximal to the femur with a scalpel through skin and subcutaneous tissue. She had a very deep subcutaneous fat layer, which we continued sharply through and obtaining hemostasis as we went down. Finally, we were down onto fascia and this was incised in line with the skin incision. Blunt finger dissection was taken down onto the greater trochanter and a guide pin was positioned at the tip. We then advanced this down the canal to about the level of the lesser trochanter. Lateral views were checked verifying good position on that as well and then we opened the proximal femur with the opening reamer. We chose a 125 gamma nail. This was advanced over the pin and the guide pin removed. We adjusted the position until the lag screw looked as though its trajectory would be central in the neck and then an incision was made laterally. The sleeve was taken down to bone. We then drilled the near cortex. A threaded guide pin was then advanced up the neck to the subchondral bone of the femoral head on AP view and placed centrally. We then checked lateral. This was centered on the head on the lateral view as well. We then used a ruler and chose an 80 mm lag screw. This was then advanced over the guide pin until we were less than a centimeter from the articular surface on both AP and lateral views and bone fixation was good in the hard femoral head bone. We then placed a derotation screw proximally down the nail. We advanced this until it was locked. I then backed off 1/4 turn. We then used the compression device to compress the fracture slightly. We then removed the sleeve for the lag screw and then placed sleeve for the distal interlocking screw, again making a stab incision where it contacted the skin, spreading down to bone and then placing the sleeve till it was on bone. We then drilled the distal interlocking screw in the static position, measured length and then chose the appropriate screw. This was advanced, giving good bicortical fixation. We went ahead and removed the jig. Final fluoro images were taken, AP and lateral, proximal and distal verifying anatomic reduction and hardware in good position. Those were saved. We then irrigated with IrriSept, copiously, after a minute, irrigated with saline. A #1 Vicryl was used to close the IT band proximally as well as placed several deep fat stitches, 2-0 Monocryl was used for subcutaneous, daljit for skin. Monocryl and daljit were used for the distal incision. Xeroform and sterile dressings were applied. The patient was then awakened, extubated, and transferred to recovery in stable condition. CARLYN:[email or web address] Job ID: [id number] Doc ID: [id number] Gunnar Roberson MD
[2022-04-07] MEDS ORDERED: PNEUMOCOCCAL 23-VAL P-SAC VAC 0.5 ML SYRINGE IM ONE (10:00)
--- NOTE | 2022-04-07 10:16 | EKG ---
[facility] Test Date: 2022-04-06 Pat Name: Farhat Milian Department: ED Room: Gender: Female [employer]ing [employer] Specialist: : [id number] Requested By: Addison Glaser Order Number: [id number] Reading MD: Kaushal Barton M.D. Measurements Intervals [place] Rate: 87 P: 46 TN: 191 QRS: 3 QRSD: 82 T: 75 QT: 337 QTc: 405 Interpretive Statements Sinus rhythm Borderline T abnormalities, anterior leads Electronically Signed On 04-07-2022 10:15:51 PST by Kaushal Barton M.D. /store/[email or web address]/[id number]
[2022-04-07] MEDS: FUROSEMIDE 20 MG TABLET PO SCH ×2 (10:34→15:07)
[2022-04-07] MEDS: DOCUSATE SODIUM 100 MG CAPSULE PO SCH ×2 (10:34→20:20)
[2022-04-07] MEDS: SERTRALINE 100 MG TABLET PO SCH (10:48)
[2022-04-07] MEDS: OMEPRAZOLE 20 MG CAPSULE PO SCH (10:48)
--- NOTE | 2022-04-07 11:20 | Internal Med Progress Note ---
SUBJECTIVE Subjective Patient information: Note initiated : 04/07/22 at 11:17 am Service Date, if different from initiated Date: [] Patient: Farhat Milian 76 y/o F admitted on 04/06/22 for RLE injury. Chief Complaint: [] Principal diagnosis: Femur IT fracture Interval history: Post op day 1, doing well on oxygen 2-3 L, no oxygen needs at home Pain reasonably well controlled Pertinent ROS: Denies headache, dizziness Denies chest pain, palpitations Denies cough or shortness of breath Denies abdominal pain, nausea or vomiting. Constitutional Vitals: Vital Signs Temp Pulse Resp BP Pulse Ox O2 Del Method O2 Flow Rate 97.8 F 66 18 120/64 98 3 04/07/22 08:00 04/07/22 08:00 04/07/22 08:00 04/07/22 08:00 04/07/22 08:00 04/07/22 08:00 04/07/22 08:00 Period Temp Pulse Resp BP Sys/Zarco Pulse Ox O2 Del Method O2 Flow Rate Last 24 Hr 97.2 F-98.5 F 66-126 9-20 97-157/49-85 81-100 Nasal Cannula- Nasal Cannula, Oxymask 3-6 Intake and Output 04/06/22 04/07/22 04/07/22 19:59 03:59 11:59 Intake Total 920 1475 1485 Output Total 625 550 Balance 058 102 5339 Weight 90.809 kg Intake & Output: Intake & Output 04/06/22 04/07/22 04/07/22 19:59 03:59 11:59 Intake Total 920 1475 1485 Output Total 625 550 Balance 140 754 4043 Weight 90.809 kg Intake: IV 100 1000 1165 Sodium Chloride 0.9% 1,000 ml @ 1000 1165 125 mls/hr IV .Q8H [facility] Rx#: [id number] Oral 420 475 320 IV - Manual Only 400 Output: Urine Catheter Amount 275 550 Estimated Blood Loss 350 Other: Meal Dinner Breakfast Percent of Meal Consumed 100% 100% Feeding Ability Assist with Tray Set Up Assist with Tray Set Up Urine Appearance Cloudy Clear Uretheral (Chavez) Clear Urine Color Yellow Dark Yellow Uretheral (Chavez) Yellow Urine Odor Strong Exam: Constitutional; Afebrile, cooperative, alert, not in distress. Obese Eyes- No icterus, , No periorbital swelling Ears- Ext ear normal, hearing normal to conversation. Neck- Midline trachea, supple Respiratory system: Air Entry equal on both sides, No crackles or wheezing, no rhonchi. CVS- Rate rhythm regular, S1,S2 heard, no gallop, no rub. soft systolic murmur Abdomen- Soft nontender abdomen, no organomegaly, no tenderness, no guarding or rigidity, [employer]- AOOx3, moving all extremities, no gross focal deficit noted. OBJ DATA Labs CBC & Chem 7: 04/05/22 23:17 04/05/22 23:13 Labs: Abnormal Lab Results 04/06/22 01:26 Urine Appearance Hazy A Urine Nitrate Pos A Urine WBC 10 H Calcium Oxalate Crystal Few A Urine Bacteria Many A Urine Mucus Many A Meds: Medications Acetaminophen (Acetaminophen 325 Mg Tablet) 650 mg PO Q6HP PRN; Protocol PRN Reason: Per Pain Protocol/Fever > 101 Last Admin: 04/07/22 03:30 Dose: 650 mg Albuterol Sulfate (Albuterol Sulfate 2.5 Mg/3 Ml Nebulizer) 2.5 mg NEB Q2HP PRN PRN Reason: Shortness Of Breath Last Admin: 04/07/22 07:18 Dose: 2.5 mg Bisacodyl (Bisacodyl 10 Mg Supp.Rect) 10 mg [place] Q2-3DAYS PRN PRN Reason: Constipation Docusate Sodium (Docusate Sodium 100 Mg Capsule) 100 mg PO BID [facility] Last Admin: 04/07/22 10:34 Dose: 100 mg Furosemide (Furosemide 20 Mg Tablet) 20 mg PO BIDD [facility] Last Admin: 04/07/22 10:34 Dose: 20 mg Heparin Sodium (Porcine) (Heparin 5,000 Unit/Ml Vial) 5,000 unit SQ Q12 [facility] Hydromorphone HCl (Hydromorphone 0.5 Mg/0.5 Ml Syringe) 0.5 mg IV Q2HP PRN; Protocol PRN Reason: Per Pain Protocol Last Admin: 04/06/22 23:55 Dose: 0.5 mg Sodium Chloride (Sodium Chloride 0.9%) 1,000 mls @ 125 mls/hr IV .Q8H [facility] Last Infusion: 04/07/22 07:32 Dose: 0 mls/hr Magnesium Hydroxide (Magnesium Hydroxide 30 Ml Oral.Susp) 30 ml PO BIDP PRN PRN Reason: Constipation Montelukast Sodium (Montelukast 10 Mg Tablet) 10 mg PO [facility] Morphine Sulfate (Morphine 4 Mg/Ml Vial) 4 mg IV Q2HP PRN; Protocol PRN Reason: Per Pain Protocol Last Admin: 04/06/22 01:45 Dose: 4 mg Naloxone HCl (Naloxone Hcl 0.4 Mg/Ml Vial) 0.1 mg IV Q2MIN PRN PRN Reason: Opiate Reversal Nitroglycerin (Nitroglycerin 0.4 Mg Tab.Subl) 0.4 mg SL Q5M PRN PRN Reason: Chest Pain Omeprazole (Omeprazole 20 Mg Capsule) 40 mg PO QDAY [facility] Last Admin: 04/07/22 10:48 Dose: 40 mg Ondansetron HCl (Ondansetron 4 Mg/2 Ml Vial) 4 mg IV Q6HP PRN PRN Reason: Nausea And Vomiting Oxycodone HCl (Oxycodone Hcl 5 Mg Tablet) 5 mg PO Q4HP PRN; Protocol PRN Reason: Per Pain Protocol Last Admin: 04/07/22 10:55 Dose: 5 mg Polyethylene Glycol (Polyethylene Glycol 3350 17 Gm Packet) 17 gm PO DAILYP PRN PRN Reason: Constipation Senna (Sennosides 1 Tablet) 2 tab PO [facility] Last Admin: 04/06/22 20:55 Dose: Not Given Sertraline HCl (Sertraline 100 Mg Tablet) 100 mg PO QDAY [facility] Last Admin: 04/07/22 10:48 Dose: 100 mg Sodium Biphosphate/Sodium Phosphate (Fleets Adult Enema) 1 dose [place] Q3-4DAYS PRN PRN Reason: Constipation Sodium Chloride (0.9 % Sodium Chloride 10 Ml Syringe) 10 ml IV Q8 [facility] Last Admin: 04/07/22 05:36 Dose: Not Given Trazodone HCl (Trazodone Hcl 50 Mg Tablet) 50 mg PO HSP PRN PRN Reason: Insomnia A/P Narrative A/P Narrative: A/P Right Femur Fracture, Intertrochanteric -Ortho consulted, s/p surgery on 04/06 -Post op day 1 -DVT prophyalxis,. OT./PT per ortho Pre OP eval -RCRI 0, low cardiovascular risk for moderate risk surgery, no modifiable risk factores noted GERD -resumed home meds . Anxiety disorder -resumed sertraline. Plan of Treatment: discharge to SNF per hospitalist. Time Spent With Patient Time: Total time spent is greater than 50% in coordination of care (as documented) at patient's floor/unit and/or counseling patient: QUALITY VTE Deep Vein Thrombosis/Pulmonary Embolism Present on Admission: No
[2022-04-07] MEDS: HEPARIN 5,000 UNIT/ML VIAL SQ SCH (20:20)
[2022-04-07] MEDS: MONTELUKAST 10 MG TABLET PO SCH (20:21)
[2022-04-07] MEDS: SENNOSIDES 1 TABLET PO SCH (20:21)
[2022-04-07] MEDS: HYDROmorphone 0.5 MG/0.5 ML SYRINGE IV PRN (20:34)
[2022-04-08] MEDS: oxyCODONE HCL 5 MG TABLET PO PRN (00:01)
[2022-04-08] MEDS: 0.9 % SODIUM CHLORIDE 10 ML SYRINGE IV SCH ×3 (05:18→20:57)
[2022-04-08] MEDS: DOCUSATE SODIUM 100 MG CAPSULE PO SCH ×2 (10:36→20:57)
[2022-04-08] MEDS: FUROSEMIDE 20 MG TABLET PO SCH ×2 (10:36→15:48)
[2022-04-08] MEDS: HEPARIN 5,000 UNIT/ML VIAL SQ SCH ×2 (10:37→20:58)
[2022-04-08] MEDS: SERTRALINE 100 MG TABLET PO SCH (10:37)
[2022-04-08] MEDS: OMEPRAZOLE 20 MG CAPSULE PO SCH (10:37)
[2022-04-08] MEDS: morphine 4 MG/ML VIAL IV PRN ×2 (10:52→15:49)
--- NOTE | 2022-04-08 12:36 | Orthopedic Progress Note ---
SUBJECTIVE Subjective Patient information: Note initiated : 04/08/22 at 12:35 pm Service Date, if different from initiated Date: [] Patient: Farhat Milian 76 y/o F admitted on 04/06/22 for RLE injury. Chief Complaint: Moderate pain, mild confusion. Principal diagnosis: Femur IT fracture Constitutional Vitals: Vital Signs Temp Pulse Resp BP Pulse Ox O2 Del Method O2 Flow Rate 98.5 F 86 16 102/59 95 1 04/08/22 08:00 04/08/22 08:00 04/08/22 08:00 04/08/22 08:00 04/08/22 08:00 04/08/22 08:00 04/08/22 08:00 Period Temp Pulse Resp BP Sys/Zarco Pulse Ox O2 Del Method O2 Flow Rate Last 24 Hr 97.4 F-99.3 F 72-86 16-20 92-117/49-60 91-97 Nasal Cannula- Room Air 1-1.5 Intake and Output 04/08/22 04/08/22 04/08/22 03:59 11:59 19:59 Intake Total 360 Output Total 500 Balance -140 Weight 201 lb 8 oz Intake & Output: Intake & Output 04/08/22 04/08/22 04/08/22 03:59 11:59 19:59 Intake Total 360 Output Total 500 Balance -140 Weight 201 lb 8 oz Intake: Oral 360 Output: Urine Catheter Amount 500 Other: Urine Appearance Clear Urine Color Dark Yellow Uretheral (Chavez) Yellow Additional findings Additional findings: Bandages c/d/i nvi-distal OBJ DATA Labs CBC & Chem 7: 04/05/22 23:17 04/05/22 23:13 Labs: Abnormal Lab Results 04/06/22 01:26 Urine Appearance Hazy A Urine Nitrate Pos A Urine WBC 10 H Calcium Oxalate Crystal Few A Urine Bacteria Many A Urine Mucus Many A Meds: Medications Acetaminophen (Acetaminophen 325 Mg Tablet) 650 mg PO Q6HP PRN; Protocol PRN Reason: Per Pain Protocol/Fever > 101 Last Admin: 04/07/22 18:59 Dose: 650 mg Albuterol Sulfate (Albuterol Sulfate 2.5 Mg/3 Ml Nebulizer) 2.5 mg NEB Q2HP PRN PRN Reason: Shortness Of Breath Last Admin: 04/07/22 07:18 Dose: 2.5 mg Bisacodyl (Bisacodyl 10 Mg Supp.Rect) 10 mg [place] Q2-3DAYS PRN PRN Reason: Constipation Docusate Sodium (Docusate Sodium 100 Mg Capsule) 100 mg PO BID [facility] Last Admin: 04/08/22 10:36 Dose: 100 mg Furosemide (Furosemide 20 Mg Tablet) 20 mg PO BIDD [facility] Last Admin: 04/08/22 10:36 Dose: 20 mg Heparin Sodium (Porcine) (Heparin 5,000 Unit/Ml Vial) 5,000 unit SQ Q12 [facility] Last Admin: 04/08/22 10:37 Dose: 5,000 unit Hydromorphone HCl (Hydromorphone 0.5 Mg/0.5 Ml Syringe) 0.5 mg IV Q2HP PRN; Protocol PRN Reason: Per Pain Protocol Last Admin: 04/07/22 20:34 Dose: 0.5 mg Magnesium Hydroxide (Magnesium Hydroxide 30 Ml Oral.Susp) 30 ml PO BIDP PRN PRN Reason: Constipation Montelukast Sodium (Montelukast 10 Mg Tablet) 10 mg PO [facility] Last Admin: 04/07/22 20:21 Dose: 10 mg Morphine Sulfate (Morphine 4 Mg/Ml Vial) 4 mg IV Q2HP PRN; Protocol PRN Reason: Per Pain Protocol Last Admin: 04/08/22 10:52 Dose: 4 mg Naloxone HCl (Naloxone Hcl 0.4 Mg/Ml Vial) 0.1 mg IV Q2MIN PRN PRN Reason: Opiate Reversal Nitroglycerin (Nitroglycerin 0.4 Mg Tab.Subl) 0.4 mg SL Q5M PRN PRN Reason: Chest Pain Omeprazole (Omeprazole 20 Mg Capsule) 40 mg PO QDAY [facility] Last Admin: 04/08/22 10:37 Dose: 40 mg Ondansetron HCl (Ondansetron 4 Mg/2 Ml Vial) 4 mg IV Q6HP PRN PRN Reason: Nausea And Vomiting Oxycodone HCl (Oxycodone Hcl 5 Mg Tablet) 5 mg PO Q4HP PRN; Protocol PRN Reason: Per Pain Protocol Last Admin: 04/08/22 00:01 Dose: 5 mg Polyethylene Glycol (Polyethylene Glycol 3350 17 Gm Packet) 17 gm PO DAILYP PRN PRN Reason: Constipation Senna (Sennosides 1 Tablet) 2 tab PO [facility] Last Admin: 04/07/22 20:21 Dose: 2 tab Sertraline HCl (Sertraline 100 Mg Tablet) 100 mg PO QDAY [facility] Last Admin: 04/08/22 10:37 Dose: 100 mg Sodium Biphosphate/Sodium Phosphate (Fleets Adult Enema) 1 dose [place] Q3-4DAYS PRN PRN Reason: Constipation Sodium Chloride (0.9 % Sodium Chloride 10 Ml Syringe) 10 ml IV Q8 [facility] Last Admin: 04/08/22 05:18 Dose: 10 ml Trazodone HCl (Trazodone Hcl 50 Mg Tablet) 50 mg PO HSP PRN PRN Reason: Insomnia A/P Narrative A/P Narrative: 2 days s/p R hip IT fx-stable Plan of Treatment: discharge to SNF per hospitalist. Mobilize with PT f/u at [place] in 2 weeks for staple removal. 50% weight bearing. Time Spent With Patient Time: Total time spent is greater than 50% in coordination of care (as documented) at patient's floor/unit and/or counseling patient: Total time spent with greater than 50% in coordination of care (as documented) at patient's floor/unit and/or counseling patient:: less than 15 minutes
[2022-04-08] MEDS: HYDROcodone/APAP 5/325MG TABLET PO PRN (15:48)
--- NOTE | 2022-04-08 15:53 | Internal Med Progress Note ---
SUBJECTIVE Subjective Patient information: Note initiated : 04/08/22 at 3:51 pm Service Date, if different from initiated Date: [] Patient: Farhat Milian 76 y/o F admitted on 04/06/22 for RLE injury. Chief Complaint: [] Principal diagnosis: Femur IT fracture Interval history: 04/08 Stable overnight, the patient is having a significant mount of pain. Her says that she did not respond well to oxycodone but does better with hydrocodone so switched to hydrocodone as needed. The patient has an allergy to naproxen, confirmed with the patient so will not use NSAIDs. Continue analgesics as needed. Physical therapy recommended low intensity rehab. Physical exam Head: Atraumatic, normal inspection. Eyes: normal appearance, no scleral icterus. Neck: full ROM Respiratory: no respiratory distress. Cardiovascular: normal rate and rhythm, S1, S2. GI/Abdominal: soft, nontender, no guarding. Extremities: Right hip surgical incision covered with clean bandage, tenderness to right hip area. Neurological: CN II-XII intact, intact motor, intact sensation. Psychiatric: Impaired memory Skin: warm, normal color Constitutional Vitals: Vital Signs Temp Pulse Resp BP Pulse Ox O2 Del Method O2 Flow Rate 98.3 F 79 16 89/53 90 1 04/08/22 12:00 04/08/22 12:00 04/08/22 12:00 04/08/22 12:00 04/08/22 12:00 04/08/22 12:00 04/08/22 12:00 Period Temp Pulse Resp BP Sys/Zarco Pulse Ox O2 Del Method O2 Flow Rate Last 24 Hr 97.4 F-99.3 F 72-86 16-20 89-117/49-60 90-97 Nasal Cannula- Room Air 1-1.5 Intake and Output 04/08/22 04/08/22 04/08/22 03:59 11:59 19:59 Intake Total 360 Output Total 500 Balance -140 Weight 91.399 kg Intake & Output: Intake & Output 04/08/22 04/08/22 04/08/22 03:59 11:59 19:59 Intake Total 360 Output Total 500 Balance -140 Weight 91.399 kg Intake: Oral 360 Output: Urine Catheter Amount 500 Other: Urine Appearance Clear Urine Color Dark Yellow Uretheral (Chavez) Yellow OBJ DATA Labs CBC & Chem 7: 04/05/22 23:17 04/05/22 23:13 Labs: Abnormal Lab Results 04/06/22 01:26 Urine Appearance Hazy A Urine Nitrate Pos A Urine WBC 10 H Calcium Oxalate Crystal Few A Urine Bacteria Many A Urine Mucus Many A Meds: Medications Acetaminophen (Acetaminophen 325 Mg Tablet) 650 mg PO Q6HP PRN; Protocol PRN Reason: Per Pain Protocol/Fever > 101 Last Admin: 04/07/22 18:59 Dose: 650 mg Hydrocodone Bitart/Acetaminophen (Hydrocodone/Apap 5/325mg Tablet) 1 tab PO Q4HP PRN; Protocol PRN Reason: Per Pain Protocol Last Admin: 04/08/22 15:48 Dose: 1 tab Albuterol Sulfate (Albuterol Sulfate 2.5 Mg/3 Ml Nebulizer) 2.5 mg NEB Q2HP PRN PRN Reason: Shortness Of Breath Last Admin: 04/07/22 07:18 Dose: 2.5 mg Bisacodyl (Bisacodyl 10 Mg Supp.Rect) 10 mg [place] Q2-3DAYS PRN PRN Reason: Constipation Docusate Sodium (Docusate Sodium 100 Mg Capsule) 100 mg PO BID [facility] Last Admin: 04/08/22 10:36 Dose: 100 mg Furosemide (Furosemide 20 Mg Tablet) 20 mg PO BIDD [facility] Last Admin: 04/08/22 15:48 Dose: 20 mg Heparin Sodium (Porcine) (Heparin 5,000 Unit/Ml Vial) 5,000 unit SQ Q12 [facility] Last Admin: 04/08/22 10:37 Dose: 5,000 unit Hydromorphone HCl (Hydromorphone 0.5 Mg/0.5 Ml Syringe) 0.5 mg IV Q2HP PRN; Protocol PRN Reason: Per Pain Protocol Last Admin: 04/07/22 20:34 Dose: 0.5 mg Magnesium Hydroxide (Magnesium Hydroxide 30 Ml Oral.Susp) 30 ml PO BIDP PRN PRN Reason: Constipation Montelukast Sodium (Montelukast 10 Mg Tablet) 10 mg PO HS [facility] Last Admin: 04/07/22 20:21 Dose: 10 mg Morphine Sulfate (Morphine 4 Mg/Ml Vial) 4 mg IV Q2HP PRN; Protocol PRN Reason: Per Pain Protocol Last Admin: 04/08/22 15:49 Dose: 4 mg Naloxone HCl (Naloxone Hcl 0.4 Mg/Ml Vial) 0.1 mg IV Q2MIN PRN PRN Reason: Opiate Reversal Nitroglycerin (Nitroglycerin 0.4 Mg Tab.Subl) 0.4 mg SL Q5M PRN PRN Reason: Chest Pain Omeprazole (Omeprazole 20 Mg Capsule) 40 mg PO QDAY [facility] Last Admin: 04/08/22 10:37 Dose: 40 mg Ondansetron HCl (Ondansetron 4 Mg/2 Ml Vial) 4 mg IV Q6HP PRN PRN Reason: Nausea And Vomiting Polyethylene Glycol (Polyethylene Glycol 3350 17 Gm Packet) 17 gm PO DAILYP PRN PRN Reason: Constipation Senna (Sennosides 1 Tablet) 2 tab PO HS [facility] Last Admin: 04/07/22 20:21 Dose: 2 tab Sertraline HCl (Sertraline 100 Mg Tablet) 100 mg PO QDAY [facility] Last Admin: 04/08/22 10:37 Dose: 100 mg Sodium Biphosphate/Sodium Phosphate (Fleets Adult Enema) 1 dose [place] Q3-4DAYS PRN PRN Reason: Constipation Sodium Chloride (0.9 % Sodium Chloride 10 Ml Syringe) 10 ml IV Q8 [facility] Last Admin: 04/08/22 15:49 Dose: 10 ml Trazodone HCl (Trazodone Hcl 50 Mg Tablet) 50 mg PO HSP PRN PRN Reason: Insomnia A/P Narrative A/P Narrative: A/P Right Femur Fracture, Intertrochanteric -Ortho consulted, s/p surgery on 04/06 -DVT prophylaxis,. OT./PT per ortho -Analgesics as needed. -Delirium bundle. GERD -home PPI. Anxiety disorder -home sertraline. Plan of Treatment: discharge to SNF per hospitalist. Mobilize with PT f/u at [place] in 2 weeks for staple removal. 50% weight bearing. Time Spent With Patient Time: Total time spent is greater than 50% in coordination of care (as documented) at patient's floor/unit and/or counseling patient: QUALITY VTE Deep Vein Thrombosis/Pulmonary Embolism Present on Admission: No
[2022-04-08] MEDS: MONTELUKAST 10 MG TABLET PO SCH (20:57)
[2022-04-08] MEDS: SENNOSIDES 1 TABLET PO SCH (20:58)
[2022-04-09] MEDS: HYDROcodone/APAP 5/325MG TABLET PO PRN ×2 (02:33→09:32)
[2022-04-09] MEDS: 0.9 % SODIUM CHLORIDE 10 ML SYRINGE IV SCH ×3 (06:04→21:07)
[2022-04-09] MEDS: DOCUSATE SODIUM 100 MG CAPSULE PO SCH ×2 (08:25→21:07)
[2022-04-09] MEDS: FUROSEMIDE 20 MG TABLET PO SCH ×2 (08:25→16:34)
[2022-04-09] MEDS: SERTRALINE 100 MG TABLET PO SCH (08:25)
[2022-04-09] MEDS: OMEPRAZOLE 20 MG CAPSULE PO SCH (08:25)
[2022-04-09] MEDS: HEPARIN 5,000 UNIT/ML VIAL SQ SCH ×2 (08:27→21:07)
--- NOTE | 2022-04-09 15:49 | Internal Med Progress Note ---
SUBJECTIVE Subjective Patient information: Note initiated : 04/09/22 at 3:45 pm Service Date, if different from initiated Date: [] Patient: Farhat Milian 76 y/o F admitted on 04/06/22 for RLE injury. Chief Complaint: [] Principal diagnosis: Femur IT fracture Interval history: 04/08 Stable overnight, the patient is having a significant mount of pain. Her says that she did not respond well to oxycodone but does better with hydrocodone so switched to hydrocodone as needed. The patient has an allergy to naproxen, confirmed with the patient so will not use NSAIDs. Continue analgesics as needed. Physical therapy recommended low intensity rehab. 04/09 The patient's pain is better controlled today. Discussed removal of the patient's Chavez catheter tomorrow as long as her pain continues to be better controlled. Awaiting placement. Physical exam Head: Atraumatic, normal inspection. Eyes: normal appearance, no scleral icterus. Neck: full ROM Respiratory: no respiratory distress. Cardiovascular: normal rate and rhythm, S1, S2. GI/Abdominal: soft, nontender, no guarding. Extremities: Right hip surgical incision covered with clean bandage, tenderness to right hip area. Neurological: CN II-XII intact, intact motor, intact sensation. Psychiatric: Impaired memory Skin: warm, normal color Constitutional Vitals: Vital Signs Temp Pulse Resp BP Pulse Ox O2 Del Method O2 Flow Rate 97.8 F 71 18 103/62 94 1 04/09/22 11:33 04/09/22 11:33 04/09/22 11:33 04/09/22 11:33 04/09/22 11:33 04/09/22 11:33 04/09/22 11:33 Period Temp Pulse Resp BP Sys/Zarco Pulse Ox O2 Del Method O2 Flow Rate Last 24 Hr 97.6 F-98.3 F 67-80 14-20 95-111/54-62 91-99 Nasal Cannula- Nasal Cannula 1-1 Intake and Output 04/09/22 04/09/22 04/09/22 03:59 11:59 19:59 Intake Total 340 Output Total 450 Balance -110 Weight 90.31 kg Intake & Output: Intake & Output 04/09/22 04/09/22 04/09/22 03:59 11:59 19:59 Intake Total 340 Output Total 450 Balance -110 Weight 90.31 kg Intake: Oral 340 Output: Urine Catheter Amount 450 Other: Meal Breakfast Percent of Meal Consumed 100% Feeding Ability Assist with Tray Set Up Urine Appearance Clear Urine Color Yellow Urine Odor Normal OBJ DATA Labs CBC & Chem 7: 04/05/22 23:17 04/05/22 23:13 Meds: Medications Acetaminophen (Acetaminophen 325 Mg Tablet) 650 mg PO Q6HP PRN; Protocol PRN Reason: Per Pain Protocol/Fever > 101 Last Admin: 04/07/22 18:59 Dose: 650 mg Hydrocodone Bitart/Acetaminophen (Hydrocodone/Apap 5/325mg Tablet) 1 tab PO Q4HP PRN; Protocol PRN Reason: Per Pain Protocol Last Admin: 04/09/22 09:32 Dose: 1 tab Albuterol Sulfate (Albuterol Sulfate 2.5 Mg/3 Ml Nebulizer) 2.5 mg NEB Q2HP PRN PRN Reason: Shortness Of Breath Last Admin: 04/07/22 07:18 Dose: 2.5 mg Bisacodyl (Bisacodyl 10 Mg Supp.Rect) 10 mg [place] Q2-3DAYS PRN PRN Reason: Constipation Docusate Sodium (Docusate Sodium 100 Mg Capsule) 100 mg PO BID [facility] Last Admin: 04/09/22 08:25 Dose: 100 mg Furosemide (Furosemide 20 Mg Tablet) 20 mg PO BIDD [facility] Last Admin: 04/09/22 08:25 Dose: 20 mg Heparin Sodium (Porcine) (Heparin 5,000 Unit/Ml Vial) 5,000 unit SQ Q12 [facility] Last Admin: 04/09/22 08:27 Dose: 5,000 unit Hydromorphone HCl (Hydromorphone 0.5 Mg/0.5 Ml Syringe) 0.5 mg IV Q2HP PRN; Protocol PRN Reason: Per Pain Protocol Last Admin: 04/07/22 20:34 Dose: 0.5 mg Magnesium Hydroxide (Magnesium Hydroxide 30 Ml Oral.Susp) 30 ml PO BIDP PRN PRN Reason: Constipation Montelukast Sodium (Montelukast 10 Mg Tablet) 10 mg PO HS [facility] Last Admin: 04/08/22 20:57 Dose: 10 mg Morphine Sulfate (Morphine 4 Mg/Ml Vial) 4 mg IV Q2HP PRN; Protocol PRN Reason: Per Pain Protocol Last Admin: 04/08/22 15:49 Dose: 4 mg Naloxone HCl (Naloxone Hcl 0.4 Mg/Ml Vial) 0.1 mg IV Q2MIN PRN PRN Reason: Opiate Reversal Nitroglycerin (Nitroglycerin 0.4 Mg Tab.Subl) 0.4 mg SL Q5M PRN PRN Reason: Chest Pain Omeprazole (Omeprazole 20 Mg Capsule) 40 mg PO QDAY [facility] Last Admin: 04/09/22 08:25 Dose: 40 mg Ondansetron HCl (Ondansetron 4 Mg/2 Ml Vial) 4 mg IV Q6HP PRN PRN Reason: Nausea And Vomiting Polyethylene Glycol (Polyethylene Glycol 3350 17 Gm Packet) 17 gm PO DAILYP PRN PRN Reason: Constipation Senna (Sennosides 1 Tablet) 2 tab PO HS [facility] Last Admin: 04/08/22 20:58 Dose: 2 tab Sertraline HCl (Sertraline 100 Mg Tablet) 100 mg PO QDAY [facility] Last Admin: 04/09/22 08:25 Dose: 100 mg Sodium Biphosphate/Sodium Phosphate (Fleets Adult Enema) 1 dose [place] Q3-4DAYS PRN PRN Reason: Constipation Sodium Chloride (0.9 % Sodium Chloride 10 Ml Syringe) 10 ml IV Q8 [facility] Last Admin: 04/09/22 06:04 Dose: 10 ml Trazodone HCl (Trazodone Hcl 50 Mg Tablet) 50 mg PO HSP PRN PRN Reason: Insomnia A/P Narrative A/P Narrative: Assessment: 76-year-old female with a history of eosinophilic esophagitis, anxiety disorder, osteoporosis, degenerative disc disease, obesity admitted for right intertrochanteric femur fracture status post ORIF 04/06/2022. #Right intertrochanteric fracture status post ORIF 04/06/2022 #Hypoxia, mild #Intermittent hallucinations/hospital-acquired delirium #Eosinophilic esophagitis #Anxiety disorder #Osteoporosis #Degenerative disc disease #Physical deconditioning Plan -Analgesics as needed, bowel regimen. -Oxygen supplementation, wean as able. -Incentive spirometry. -Delirium bundle. -Continue home Lasix, Singulair, Prilosec, sertraline. -Regular diet. -PT and OT following. -DVT prophylaxis: Heparin SQ -CODE STATUS: Full -Disposition: Probably low intensity rehab. Follow-up with orthopedic surgery in clinic. Plan of Treatment: discharge to SNF per hospitalist. Mobilize with PT f/u at [place] in 2 weeks for staple removal. 50% weight bearing. Time Spent With Patient Time: Total time spent is greater than 50% in coordination of care (as documented) at patient's floor/unit and/or counseling patient: QUALITY VTE Deep Vein Thrombosis/Pulmonary Embolism Present on Admission: No
[2022-04-09] MEDS: ACETAMINOPHEN 325 MG TABLET PO PRN (18:48)
[2022-04-09] MEDS: MONTELUKAST 10 MG TABLET PO SCH (21:07)
[2022-04-09] MEDS: SENNOSIDES 1 TABLET PO SCH (21:07)
[2022-04-09] MEDS: MELATONIN 3 MG TABLET PO PRN (21:07)
[2022-04-10] MEDS: HYDROcodone/APAP 5/325MG TABLET PO PRN ×3 (05:06→21:34)
[2022-04-10] MEDS: 0.9 % SODIUM CHLORIDE 10 ML SYRINGE IV SCH ×3 (05:07→21:15)
[2022-04-10] MEDS: SERTRALINE 100 MG TABLET PO SCH (09:42)
[2022-04-10] MEDS: OMEPRAZOLE 20 MG CAPSULE PO SCH (09:42)
[2022-04-10] MEDS: FUROSEMIDE 20 MG TABLET PO SCH ×2 (09:43→17:17)
[2022-04-10] MEDS: DOCUSATE SODIUM 100 MG CAPSULE PO SCH ×2 (09:43→21:13)
[2022-04-10] MEDS: HEPARIN 5,000 UNIT/ML VIAL SQ SCH ×2 (09:45→21:13)
[2022-04-10] MEDS: PSYLLIUM HUSK 5.8 GM PACKET PO SCH ×3 (12:33→21:14)
[2022-04-10] MEDS: ACETAMINOPHEN 325 MG TABLET PO PRN (12:33)
--- NOTE | 2022-04-10 13:52 | Internal Med Progress Note ---
SUBJECTIVE Subjective Patient information: Note initiated : 04/10/22 at 1:51 pm Service Date, if different from initiated Date: [] Patient: Farhat Milian 76 y/o F admitted on 04/06/22 for RLE injury. Chief Complaint: [] Principal diagnosis: Femur IT fracture Interval history: 04/08 Stable overnight, the patient is having a significant mount of pain. Her says that she did not respond well to oxycodone but does better with hydrocodone so switched to hydrocodone as needed. The patient has an allergy to naproxen, confirmed with the patient so will not use NSAIDs. Continue analgesics as needed. Physical therapy recommended low intensity rehab. 04/09 The patient's pain is better controlled today. Discussed removal of the patient's Chavez catheter tomorrow as long as her pain continues to be better controlled. Requiring some intermittent oxygen supplementation. Awaiting placement. 04/10 Pain well controlled on oral pain medications. On room air today. Chavez catheter removed. Awaiting placement. Physical exam Head: Atraumatic, normal inspection. Eyes: normal appearance, no scleral icterus. Neck: full ROM Respiratory: no respiratory distress. Cardiovascular: normal rate and rhythm, S1, S2. GI/Abdominal: soft, nontender, no guarding. Extremities: Right hip surgical incision covered with clean bandage, mild to moderate tenderness to right hip area. Neurological: CN II-XII intact, intact motor, intact sensation. Psychiatric: Normal mood Skin: warm, normal color Constitutional Vitals: Vital Signs Temp Pulse Resp BP Pulse Ox O2 Del Method O2 Flow Rate 97.6 F 73 20 119/55 91 1 04/10/22 12:04/10/22 12:04/10/22 12:04/10/22 12:04/10/22 12:04/10/22 12:04/09/22 15:51 Period Temp Pulse Resp BP Sys/Zarco Pulse Ox O2 Del Method O2 Flow Rate Last 24 Hr 97.5 F-98.6 F 68-74 14-20 109-120/54-62 91-96 Nasal Cannula- Room Air 1 Intake and Output 04/10/22 04/10/22 04/10/22 03:59 11:59 19:59 Intake Total 600 200 Output Total 550 Balance 50 200 Weight 90.991 kg Intake & Output: Intake & Output 04/10/22 04/10/22 04/10/22 03:59 11:59 19:59 Intake Total 600 200 Output Total 550 Balance 50 200 Weight 90.991 kg Intake: Oral 600 200 Output: Void Amount 550 Other: Meal Lunch Percent of Meal Consumed 50% Feeding Ability Independent Urine Appearance Clear Clear Urine Color Yellow Dark [place]ana Stool Size Copious Stool Color Brown Stool Consistency Soft Formed # Voids 1 OBJ DATA Labs CBC & Chem 7: 04/05/22 23:17 04/05/22 23:13 Meds: Medications Acetaminophen (Acetaminophen 325 Mg Tablet) 650 mg PO Q6HP PRN; Protocol PRN Reason: Per Pain Protocol/Fever > 101 Last Admin: 04/10/22 12:33 Dose: 650 mg Hydrocodone Bitart/Acetaminophen (Hydrocodone/Apap 5/325mg Tablet) 1 tab PO Q4HP PRN; Protocol PRN Reason: Per Pain Protocol Last Admin: 04/10/22 10:00 Dose: 1 tab Albuterol Sulfate (Albuterol Sulfate 2.5 Mg/3 Ml Nebulizer) 2.5 mg NEB Q2HP PRN PRN Reason: Shortness Of Breath Last Admin: 04/07/22 07:18 Dose: 2.5 mg Bisacodyl (Bisacodyl 10 Mg Supp.Rect) 10 mg [place] Q2-3DAYS PRN PRN Reason: Constipation Docusate Sodium (Docusate Sodium 100 Mg Capsule) 100 mg PO BID [facility] Last Admin: 04/10/22 09:43 Dose: 100 mg Furosemide (Furosemide 20 Mg Tablet) 20 mg PO BIDD [facility] Last Admin: 04/10/22 09:43 Dose: 20 mg Heparin Sodium (Porcine) (Heparin 5,000 Unit/Ml Vial) 5,000 unit SQ Q12 [facility] Last Admin: 04/10/22 09:45 Dose: 5,000 unit Hydromorphone HCl (Hydromorphone 0.5 Mg/0.5 Ml Syringe) 0.5 mg IV Q2HP PRN; Protocol PRN Reason: Per Pain Protocol Last Admin: 04/07/22 20:34 Dose: 0.5 mg Magnesium Hydroxide (Magnesium Hydroxide 30 Ml Oral.Susp) 30 ml PO BIDP PRN PRN Reason: Constipation Melatonin (Melatonin 3 Mg Tablet) 3 mg PO HSP PRN PRN Reason: insomnia Last Admin: 04/09/22 21:07 Dose: 3 mg Montelukast Sodium (Montelukast 10 Mg Tablet) 10 mg PO [facility] Last Admin: 04/09/22 21:07 Dose: 10 mg Morphine Sulfate (Morphine 4 Mg/Ml Vial) 4 mg IV Q2HP PRN; Protocol PRN Reason: Per Pain Protocol Last Admin: 04/08/22 15:49 Dose: 4 mg Naloxone HCl (Naloxone Hcl 0.4 Mg/Ml Vial) 0.1 mg IV Q2MIN PRN PRN Reason: Opiate Reversal Nitroglycerin (Nitroglycerin 0.4 Mg Tab.Subl) 0.4 mg SL Q5M PRN PRN Reason: Chest Pain Omeprazole (Omeprazole 20 Mg Capsule) 40 mg PO QDAY [facility] Last Admin: 04/10/22 09:42 Dose: 40 mg Ondansetron HCl (Ondansetron 4 Mg/2 Ml Vial) 4 mg IV Q6HP PRN PRN Reason: Nausea And Vomiting Polyethylene Glycol (Polyethylene Glycol 3350 17 Gm Packet) 17 gm PO DAILYP PRN PRN Reason: Constipation Psyllium Hydrophilic Mucilloid (Psyllium Husk 5.8 Gm Packet) 6 gm PO BID [facility] Last Admin: 04/10/22 12:34 Dose: Not Given Senna (Sennosides 1 Tablet) 2 tab PO [facility] Last Admin: 04/09/22 21:07 Dose: 2 tab Sertraline HCl (Sertraline 100 Mg Tablet) 100 mg PO QDAY [facility] Last Admin: 04/10/22 09:42 Dose: 100 mg Sodium Biphosphate/Sodium Phosphate (Fleets Adult Enema) 1 dose [place] Q3-4DAYS PRN PRN Reason: Constipation Sodium Chloride (0.9 % Sodium Chloride 10 Ml Syringe) 10 ml IV Q8 [facility] Last Admin: 04/10/22 13:40 Dose: 10 ml A/P Narrative A/P Narrative: Assessment: 76-year-old female with a history of eosinophilic esophagitis, anxiety disorder, osteoporosis, degenerative disc disease, obesity admitted for right intertrochanteric femur fracture status post ORIF 04/06/2022. #Right intertrochanteric fracture status post ORIF 04/06/2022 #Hypoxia, mild #Intermittent hallucinations/hospital-acquired delirium #Eosinophilic esophagitis #Anxiety disorder #Osteoporosis #Degenerative disc disease #Physical deconditioning Plan -Analgesics as needed, bowel regimen. -Incentive spirometry. -Delirium bundle. -Continue home Lasix, Singulair, Prilosec, sertraline. -Regular diet. -PT and OT following. -DVT prophylaxis: Heparin SQ -CODE STATUS: Full -Disposition: Low intensity rehab pending placement. Follow-up with orthopedic surgery in clinic. Plan of Treatment: discharge to SNF per hospitalist. Mobilize with PT f/u at [facility] in 2 weeks for staple removal. 50% weight bearing. Time Spent With Patient Time: Total time spent is greater than 50% in coordination of care (as documented) at patient's floor/unit and/or counseling patient: QUALITY VTE Deep Vein Thrombosis/Pulmonary Embolism Present on Admission: No
[2022-04-10] MEDS: SENNOSIDES 1 TABLET PO SCH (20:57)
[2022-04-10] MEDS: MONTELUKAST 10 MG TABLET PO SCH (21:13)
[2022-04-10] MEDS: MELATONIN 3 MG TABLET PO PRN (21:13)
[2022-04-11] MEDS: 0.9 % SODIUM CHLORIDE 10 ML SYRINGE IV SCH ×3 (06:12→20:04)
[2022-04-11] MEDS: FUROSEMIDE 20 MG TABLET PO SCH ×2 (08:07→16:00)
[2022-04-11] MEDS: DOCUSATE SODIUM 100 MG CAPSULE PO SCH ×2 (08:08→20:04)
[2022-04-11] MEDS: PSYLLIUM HUSK 5.8 GM PACKET PO SCH ×2 (08:39→20:04)
[2022-04-11] MEDS: OMEPRAZOLE 20 MG CAPSULE PO SCH (08:40)
[2022-04-11] MEDS: HEPARIN 5,000 UNIT/ML VIAL SQ SCH ×2 (08:41→20:03)
[2022-04-11] MEDS: SERTRALINE 100 MG TABLET PO SCH (08:41)
--- NOTE | 2022-04-11 10:23 | Internal Med Progress Note ---
SUBJECTIVE Subjective Patient information: Note initiated : 04/11/22 at 10:22 am Service Date, if different from initiated Date: [] Patient: Farhat Milian 76 y/o F admitted on 04/06/22 for RLE injury. Chief Complaint: [] Principal diagnosis: Femur IT fracture Interval history: 04/08 Stable overnight, the patient is having a significant mount of pain. Her says that she did not respond well to oxycodone but does better with hydrocodone so switched to hydrocodone as needed. The patient has an allergy to naproxen, confirmed with the patient so will not use NSAIDs. Continue analgesics as needed. Physical therapy recommended low intensity rehab. 04/09 The patient's pain is better controlled today. Discussed removal of the patient's Chavez catheter tomorrow as long as her pain continues to be better controlled. Requiring some intermittent oxygen supplementation. Awaiting placement. 04/10 Pain well controlled on oral pain medications. On room air today. Chavez catheter removed. Awaiting placement. 04/11 No significant events overnight, pain adequately controlled. Awaiting placement likely tomorrow to [facility]. Physical exam Head: Atraumatic, normal inspection. Eyes: normal appearance, no scleral icterus. Neck: full ROM Respiratory: no respiratory distress. Cardiovascular: normal rate and rhythm, S1, S2. GI/Abdominal: soft, nontender, no guarding. Extremities: Right hip surgical incision covered with clean bandage, mild to moderate tenderness to right hip area. Neurological: CN II-XII intact, intact motor, intact sensation. Psychiatric: Normal mood Skin: warm, normal color Constitutional Vitals: Vital Signs Temp Pulse Resp BP Pulse Ox O2 Del Method O2 Flow Rate 98.5 F 67 20 116/56 95 1 04/11/22 08:00 04/11/22 08:00 04/11/22 08:00 04/11/22 08:00 04/11/22 08:00 04/11/22 08:00 04/09/22 15:51 Period Temp Pulse Resp BP Sys/Zarco Pulse Ox O2 Del Method O2 Flow Rate Last 24 Hr 97.6 F-98.5 F 67-73 16-20 112-125/55-68 91-95 Room Air-Room Air Intake and Output 04/10/22 04/11/22 04/11/22 19:59 03:59 11:59 Intake Total 1150 450 Output Total 50 500 Balance 1100 -50 Weight 89.811 kg Intake & Output: Intake & Output 04/10/22 04/11/22 04/11/22 19:59 03:59 11:59 Intake Total 1150 450 Output Total 50 500 Balance 1100 -50 Weight 89.811 kg Intake: Oral 1150 450 Output: Urine Catheter Amount 50 Void Amount 500 Other: Meal Dinner Percent of Meal Consumed 75% Feeding Ability Independent Urine Appearance Clear Clear Clear Urine Color Yellow Dark Yellow Dark Yellow Urine Odor Strong Stool Size Copious Moderate Stool Color Brown Yellow Stool Consistency Soft Loose Formed # Voids 1 # of times incontinent of 1 Bowels OBJ DATA Labs CBC & Chem 7: 04/05/22 23:17 04/05/22 23:13 Meds: Medications Acetaminophen (Acetaminophen 325 Mg Tablet) 650 mg PO Q6HP PRN; Protocol PRN Reason: Per Pain Protocol/Fever > 101 Last Admin: 04/10/22 12:33 Dose: 650 mg Hydrocodone Bitart/Acetaminophen (Hydrocodone/Apap 5/325mg Tablet) 1 tab PO Q4HP PRN; Protocol PRN Reason: Per Pain Protocol Last Admin: 04/10/22 21:34 Dose: 1 tab Albuterol Sulfate (Albuterol Sulfate 2.5 Mg/3 Ml Nebulizer) 2.5 mg NEB Q2HP PRN PRN Reason: Shortness Of Breath Last Admin: 04/07/22 07:18 Dose: 2.5 mg Bisacodyl (Bisacodyl 10 Mg Supp.Rect) 10 mg [place] Q2-3DAYS PRN PRN Reason: Constipation Docusate Sodium (Docusate Sodium 100 Mg Capsule) 100 mg PO BID [facility] Last Admin: 04/11/22 08:08 Dose: Not Given Furosemide (Furosemide 20 Mg Tablet) 20 mg PO BIDD [facility] Last Admin: 04/11/22 08:07 Dose: 20 mg Heparin Sodium (Porcine) (Heparin 5,000 Unit/Ml Vial) 5,000 unit SQ Q12 [facility] Last Admin: 04/11/22 08:41 Dose: 5,000 unit Hydromorphone HCl (Hydromorphone 0.5 Mg/0.5 Ml Syringe) 0.5 mg IV Q2HP PRN; Protocol PRN Reason: Per Pain Protocol Last Admin: 04/07/22 20:34 Dose: 0.5 mg Magnesium Hydroxide (Magnesium Hydroxide 30 Ml Oral.Susp) 30 ml PO BIDP PRN PRN Reason: Constipation Melatonin (Melatonin 3 Mg Tablet) 3 mg PO HSP PRN PRN Reason: insomnia Last Admin: 04/10/22 21:13 Dose: 3 mg Montelukast Sodium (Montelukast 10 Mg Tablet) 10 mg PO [facility] Last Admin: 04/10/22 21:13 Dose: 10 mg Naloxone HCl (Naloxone Hcl 0.4 Mg/Ml Vial) 0.1 mg IV Q2MIN PRN PRN Reason: Opiate Reversal Nitroglycerin (Nitroglycerin 0.4 Mg Tab.Subl) 0.4 mg SL Q5M PRN PRN Reason: Chest Pain Omeprazole (Omeprazole 20 Mg Capsule) 40 mg PO QDAY [facility] Last Admin: 04/11/22 08:40 Dose: 40 mg Ondansetron HCl (Ondansetron 4 Mg/2 Ml Vial) 4 mg IV Q6HP PRN PRN Reason: Nausea And Vomiting Polyethylene Glycol (Polyethylene Glycol 3350 17 Gm Packet) 17 gm PO DAILYP PRN PRN Reason: Constipation Psyllium Hydrophilic Mucilloid (Psyllium Husk 5.8 Gm Packet) 6 gm PO BID [facility] Last Admin: 04/11/22 08:39 Dose: Not Given Senna (Sennosides 1 Tablet) 2 tab PO [facility] Last Admin: 04/10/22 20:57 Dose: 2 tab Sertraline HCl (Sertraline 100 Mg Tablet) 100 mg PO QDAY [facility] Last Admin: 04/11/22 08:41 Dose: 100 mg Sodium Biphosphate/Sodium Phosphate (Fleets Adult Enema) 1 dose [place] Q3-4DAYS PRN PRN Reason: Constipation Sodium Chloride (0.9 % Sodium Chloride 10 Ml Syringe) 10 ml IV Q8 [facility] Last Admin: 04/11/22 06:12 Dose: 10 ml A/P Narrative A/P Narrative: Assessment: 76-year-old female with a history of eosinophilic esophagitis, anxiety disorder, osteoporosis, degenerative disc disease, obesity admitted for right intertrochanteric femur fracture status post ORIF 04/06/2022. #Right intertrochanteric fracture status post ORIF 04/06/2022 #Resolved hypoxia #Resolved intermittent hallucinations #Eosinophilic esophagitis #Anxiety disorder #Osteoporosis #Degenerative disc disease #Physical deconditioning Plan -Analgesics as needed, bowel regimen. -Incentive spirometry. -Delirium bundle. -Continue home Lasix, Singulair, Prilosec, sertraline. -Regular diet. -PT and OT following. -DVT prophylaxis: Heparin SQ -CODE STATUS: Full -Disposition: Low intensity rehab probably tomorrow. Follow-up with orthopedic surgery in clinic. Plan of Treatment: discharge to SNF per hospitalist. Mobilize with PT f/u at [facility] in 2 weeks for staple removal. 50% weight bearing. Time Spent With Patient Time: Total time spent is greater than 50% in coordination of care (as documented) at patient's floor/unit and/or counseling patient: QUALITY VTE Deep Vein Thrombosis/Pulmonary Embolism Present on Admission: No
[2022-04-11] MEDS: HYDROcodone/APAP 5/325MG TABLET PO PRN (18:43)
[2022-04-11] MEDS: ACETAMINOPHEN 325 MG TABLET PO PRN (20:03)
[2022-04-11] MEDS: SENNOSIDES 1 TABLET PO SCH (20:04)
[2022-04-11] MEDS: MONTELUKAST 10 MG TABLET PO SCH (20:04)
[2022-04-12] MEDS: HYDROcodone/APAP 5/325MG TABLET PO PRN ×2 (02:21→10:04)
[2022-04-12] MEDS: 0.9 % SODIUM CHLORIDE 10 ML SYRINGE IV SCH (05:35)
[2022-04-12] MEDS ORDERED: ENOXAPARIN 40 MG/0.4 ML SYRINGE SQ SCH (09:00)
--- NOTE | 2022-04-12 09:17 | Discharge Summary ---
Discharge Provider Provider IMPORTANT FOLLOW-UP INFORMATION FOR PCP: Patient information: Note initiated : 04/12/22 at 9:13 am Service Date, if different from initiated Date: [] Patient: Farhat Milian 76 y/o F admitted on 04/06/22 for RLE injury. Chief Complaint: [] Date of admission: 04/06/22 07:04 Discharge date: 04/12/22 Primary care physician: Crow Masters MD Consults: 04/06/22 Consult to Physician [CONS] Stat Comment: Consulting Provider: Gunnar Roberson Reason For Exam: Physician to Consult Consult to Physician [CONS] Stat Comment: Consulting Provider: Jerrica Lockwood Reason For Exam: Physician to Consult COURSE Hospital Course Hospital course: Farhat Milian is a 76-year-old female with a history of eosinophilic esophagitis, anxiety disorder, osteoporosis, degenerative disc disease, obesity admitted for right intertrochanteric femur fracture status post ORIF 04/06/2022. Postoperatively, the patient did have hypoxia and intermittent hallucinations. 04/08 Stable overnight, respiratory status improved. The patient is having a significant mount of pain. The patient says she has had some hallucinations and called her last night. Her says that she did not respond well to oxycodone but does better with hydrocodone so switched to hydrocodone as needed. The patient has an allergy to naproxen, confirmed with the patient so will not use NSAIDs. Continue analgesics as needed. Physical therapy recommended low intensity rehab. 04/09 The patient's pain is better controlled today. Hallucinations resolved. Discussed removal of the patient's Chavez catheter tomorrow as long as her pain continues to be better controlled. Continues to require intermittent oxygen supplementation. Awaiting placement. 04/10 Pain well controlled on oral pain medications. On room air today. Chavez catheter removed. Awaiting placement. 12 No significant events overnight, pain adequately controlled. Awaiting placement likely tomorrow to SNF. 3 Pain adequately controlled on oral medications. Respiratory status stable, no oxygen requirement for a couple days. Discharge to half-way facility for low intensity rehab. Physical exam Head: Atraumatic, normal inspection. Eyes: normal appearance, no scleral icterus. Neck: full ROM Respiratory: no respiratory distress. Cardiovascular: normal rate and rhythm, S1, S2. GI/Abdominal: soft, nontender, no guarding. Extremities: Right hip surgical incision covered with clean bandage, mild to moderate tenderness to right hip area. Neurological: CN II-XII intact, intact motor, intact sensation. Psychiatric: Normal mood Skin: warm, normal color Discharge diagnosis: Right intertrochanteric femur fracture Time Spent with Patient Time attestation: Total time spent providing and/or coordinating discharge services: Time spent: Greater than 30 minutes EXAM Constitutional Vitals: Temp Pulse Resp BP Pulse Ox O2 Del Method O2 Flow Rate 97.9 F 63 20 116/59 94 1 04/12/22 08:00 04/12/22 08:00 04/12/22 08:00 04/12/22 08:00 04/12/22 08:00 04/12/22 08:00 04/09/22 15:51 Discharge Plan Patient/Caregiver Discharge Instructions Activity: as per physical therapy Diet: Regular Diet Prescriptions: New acetaminophen 325 mg Tablet 650 mg PO Q6HP PRN (Reason: Per Pain Protocol/Fever > 101) Qty: 30 0RF hydrocodone-acetaminophen 5-325 mg Tablet 1 tab PO Q4HP PRN (Reason: Per Pain Protocol) Qty: 5 0RF sennosides [Senna Lax] 8.6 mg Tablet 17.2 mg PO HS Qty: 30 0RF polyethylene glycol 3350 [HealthyLax] 17 gram Powder In Packet 17 g PO DAILYP PRN (Reason: Constipation) Qty: 30 0RF Continued furosemide 20 mg tablet 20 mg PO BIDD 30 Days Qty: 60 2RF montelukast 10 mg tablet See Rx Instructions .ROUTE .COMPLEX Qty: 90 3RF Dose Instruction: TAKE 1 TABLET BY MOUTH EVERY EVENING Rx Instructions: TAKE 1 TABLET BY MOUTH EVERY EVENING sertraline 100 mg tablet 100 mg PO QDAY Qty: 90 3RF omeprazole 40 mg capsule,delayed release(DR/EC) 40 mg PO QDAY Qty: 90 1RF albuterol sulfate [Ventolin HFA] 90 mcg/actuation HFA aerosol inhaler 2 puff inhalation .Q4-6H PRN (Reason: bronchospasm) Qty: 18 1RF Rx Instructions: administer with aerochamber spacer potassium chloride [Klor-Con 10] 10 mEq Tablet Extended Release 10 meq PO QDAY Follow Up Plan Follow up with: Crow Masters MD [Primary Care Provider] - Patient Disposition: Xfer SNF Plan of Treatment: discharge to SNF per hospitalist. Mobilize with PT f/u at [facility] in 2 weeks for staple removal. 50% weight bearing. Prognosis: Fair Rehab Potential: Fair I certify that the patient requires SNF services: Yes Overall status at discharge: patient is progressing back to baseline Discharge Orders: Discharge Order (Routine); Ordered 04/12/22 Ordered By: Jr ROBERTO VTE Deep Vein Thrombosis/Pulmonary Embolism Present on Admission: No
[2022-04-12] MEDS: OMEPRAZOLE 20 MG CAPSULE PO SCH (09:54)
[2022-04-12] MEDS: DOCUSATE SODIUM 100 MG CAPSULE PO SCH (09:55)
[2022-04-12] MEDS: SERTRALINE 100 MG TABLET PO SCH (09:55)
[2022-04-12] MEDS: FUROSEMIDE 20 MG TABLET PO SCH (09:55)
[2022-04-12] MEDS: PSYLLIUM HUSK 5.8 GM PACKET PO SCH (09:56)
[2022-04-12] MEDS ORDERED: PNEUMOCOCCAL 23-VAL P-SAC VAC 0.5 ML SYRINGE IM ONE (10:45)
== END 2022-04-12 11:05 | DRG 481 ==
LOC: ED 22:50 → MEDSUR 04-06 07:04
PROVIDERS: ADMIT Internal Medicine; ATTEND Internal Medicine

== ENCOUNTER 2023-03-07 17:01 | Observation (INO) ==
[2023-03-07] MEDS ORDERED: IPRATROPIUM/ALBUTEROL 3 ML AMPUL.NEB NEB ONE (17:21)
[2023-03-07] MEDS ORDERED: 0.9 % SODIUM CHLORIDE 500 ML IV ONE (17:21)
[2023-03-07] MEDS: ACETAMINOPHEN 325 MG TABLET PO ONE ×2 (17:52→18:02)
[2023-03-07 18:35] LABS: Basophils # (Auto) 0.05 K/mcL (0.00-0.30); Basophils % (Auto) 0.4 % (0.0-2.0); Eosinophils % (Auto) 1.6 % (0.0-7.0); Hematocrit 42.8 % (34.1-44.9); Hemoglobin 13.9 g/dL (11.2-15.7); Lymphocytes # (Auto) 2.01 K/mcL (1.50-4.80); Lymphocytes % (Auto) 15.8 % (15.5-49.0); Mean Cell Volume 94.1 fL (80.0-100.0); Mean Corpuscular HGB Conc 32.5 g/dL (31.0-36.0); Mean Platelet Volume 10.2 fL (8.8-12.5); Monocytes # (Auto) 0.79 K/mcL (0.10-0.90); Monocytes % (Auto) 6.2 % (1.0-12.0); Neutrophils % (Auto) 75.6 % (38.0-78.0); Platelet Count 268 K/mcL (140-440); RBC 4.55 M/mcL (3.59-5.38); Red Cell Distribution Width 13.1 % (11.5-14.5); WBC 12.7 K/mcL (4.5-11.0)
[2023-03-07] MEDS ORDERED: ACETAMINOPHEN 1,000 MG/100 ML BAG IV ONE (18:48)
[2023-03-07 18:52] LABS: ALT/SGPT 15 U/L (<40); AST/SGOT 19 U/L (<32); Albumin 4.5 gm/dL (3.2-5.2); Albumin/Globulin Ratio 1.3 (1.0-2.3); Alkaline Phosphatase 101 U/L (39-117); Bilirubin,Total 0.4 mg/dL (0.1-1.0); Blood Urea Nitrogen 10 mg/dL (8-23); Calcium 9.5 mg/dL (8.6-10.4); Carbon Dioxide 25 mmol/L (22-30); Chloride 96 mmol/L (96-108); Globulin 3.4 gm/dL (2.2-3.7); Glomerular Filtration Rate 47; Glucose 94 mg/dL (70-105)
[2023-03-07 20:28] LABS: Appearance,Urine CLEAR (Clear); Bilirubin,Urine Negative (Negative); Color,Urine STRAW; Culture Indicated,Urine No; Glucose,Urine (UA) Negative (Negative); Ketones,Urine Negative (Negative); Leukocyte Esterase,Urine Negative /uL (Negative); Nitrate,Urine Negative (Negative); Protein,Urine Negative (Negative); Specific Gravity,Urine 1.006 (1.000-1.035); Urine Blood Negative (Negative); Urobilinogen,Urine Negative
[2023-03-07] MEDS ORDERED: BENZOCAINE/MENTHOL 1 LOZENGE PO PRN (21:17)
[2023-03-07] MEDS ORDERED: ONDANSETRON 4 MG/2 ML VIAL IV PRN (21:17)
[2023-03-07] MEDS ORDERED: traZODone HCL 50 MG TABLET PO PRN (21:17)
[2023-03-07] MEDS ORDERED: guaiFENesin/DEXTROMETHORPHAN 5ML UD CUP PO PRN (21:17)
[2023-03-07] MEDS ORDERED: NIRMATRELVIR/RITONAVIR 1 EACH BOX PO SCH (21:17)
[2023-03-07] MEDS ORDERED: IPRATROPIUM/ALBUTEROL 3 ML AMPUL.NEB NEB PRN (21:17)
[2023-03-07] MEDS ORDERED: ACETAMINOPHEN 325 MG TABLET PO PRN (21:17)
[2023-03-07] MEDS: NIRMATRELVIR/RITONAVIR 1 EACH BOX PO SCH (22:30)
[2023-03-07] MEDS: SENNOSIDES 1 TABLET PO SCH (22:30)
[2023-03-07] MEDS: DOCUSATE SODIUM 100 MG CAPSULE PO SCH (22:30)
[2023-03-07] MEDS: 0.9 % SODIUM CHLORIDE 10 ML SYRINGE IV SCH (22:35)
[2023-03-07] MEDS ORDERED: POLYETHYLENE GLYCOL 3350 17 GM PACKET PO PRN (23:10)
[2023-03-08] MEDS: 0.9 % SODIUM CHLORIDE 10 ML SYRINGE IV SCH ×3 (06:04→21:08)
[2023-03-08 06:35] LABS: ALT/SGPT 12 U/L (<40); AST/SGOT 16 U/L (<32); Albumin 3.8 gm/dL (3.2-5.2); Albumin/Globulin Ratio 1.3 (1.0-2.3); Alkaline Phosphatase 81 U/L (39-117); Basophils # (Auto) 0.06 K/mcL (0.00-0.30); Basophils % (Auto) 0.6 % (0.0-2.0); Bilirubin,Total 0.6 mg/dL (0.1-1.0); Blood Urea Nitrogen 11 mg/dL (8-23); Calcium 9.2 mg/dL (8.6-10.4); Carbon Dioxide 24 mmol/L (22-30); Chloride 100 mmol/L (96-108); Eosinophils # (Auto) 0.26 K/mcL (0.00-0.70); Eosinophils % (Auto) 2.7 % (0.0-7.0); Globulin 2.9 gm/dL (2.2-3.7); Glomerular Filtration Rate 82; Glucose 106 mg/dL (70-105); Hematocrit 39.8 % (34.1-44.9); Lymphocytes # (Auto) 2.34 K/mcL (1.50-4.80); Lymphocytes % (Auto) 24.1 % (15.5-49.0); Mean Cell Volume 93.4 fL (80.0-100.0); Mean Corpuscular HGB Conc 32.7 g/dL (31.0-36.0); Mean Platelet Volume 10.6 fL (8.8-12.5); Monocytes # (Auto) 0.83 K/mcL (0.10-0.90); Monocytes % (Auto) 8.6 % (1.0-12.0); Platelet Count 238 K/mcL (140-440); RBC 4.26 M/mcL (3.59-5.38); Red Cell Distribution Width 13.3 % (11.5-14.5); WBC 10.7 K/mcL (4.5-11.0)
[2023-03-08] MEDS ORDERED: ACETAMINOPHEN 325 MG TABLET PO PRN (06:43)
[2023-03-08] MEDS: NIRMATRELVIR/RITONAVIR 1 EACH BOX PO SCH ×2 (08:25→21:02)
[2023-03-08] MEDS: ENOXAPARIN 40 MG/0.4 ML SYRINGE SQ SCH (08:25)
[2023-03-08] MEDS: buPROPion 150 MG TAB.XL.24H PO SCH (08:31)
[2023-03-08] MEDS: SERTRALINE 100 MG TABLET PO SCH (08:32)
[2023-03-08] MEDS: DOCUSATE SODIUM 100 MG CAPSULE PO SCH ×2 (08:32→21:03)
[2023-03-08] MEDS: FUROSEMIDE 40 MG TABLET PO SCH ×2 (08:32→16:20)
[2023-03-08] MEDS: POTASSIUM CHLORIDE 10 MEQ TABLET PO SCH (08:32)
[2023-03-08] MEDS ORDERED: SENNOSIDES 1 TABLET PO SCH (21:00)
[2023-03-08] MEDS ORDERED: MONTELUKAST 10 MG TABLET PO SCH (21:00)
[2023-03-08] MEDS: SENNOSIDES 1 TABLET PO SCH (21:03)
[2023-03-09] MEDS: 0.9 % SODIUM CHLORIDE 10 ML SYRINGE IV SCH (04:00)
[2023-03-09 06:09] LABS: Basophils # (Auto) 0.04 K/mcL (0.00-0.30); Basophils % (Auto) 0.5 % (0.0-2.0); Eosinophils # (Auto) 0.46 K/mcL (0.00-0.70); Eosinophils % (Auto) 5.8 % (0.0-7.0); Hematocrit 37.1 % (34.1-44.9); Hemoglobin 11.8 g/dL (11.2-15.7); Lymphocytes # (Auto) 2.42 K/mcL (1.50-4.80); Lymphocytes % (Auto) 30.6 % (15.5-49.0); Mean Cell Volume 95.1 fL (80.0-100.0); Mean Corpuscular HGB Conc 31.8 g/dL (31.0-36.0); Mean Platelet Volume 9.5 fL (8.8-12.5); Monocytes % (Auto) 8.8 % (1.0-12.0); Platelet Count 237 K/mcL (140-440); Red Cell Distribution Width 13.1 % (11.5-14.5); WBC 7.9 K/mcL (4.5-11.0)
[2023-03-09 06:31] LABS: ALT/SGPT 15 U/L (<40); AST/SGOT 20 U/L (<32); Albumin 3.7 gm/dL (3.2-5.2); Albumin/Globulin Ratio 1.2 (1.0-2.3); Alkaline Phosphatase 78 U/L (39-117); Bilirubin,Total 0.5 mg/dL (0.1-1.0); Blood Urea Nitrogen 14 mg/dL (8-23); Calcium 9.1 mg/dL (8.6-10.4); Carbon Dioxide 24 mmol/L (22-30); Chloride 99 mmol/L (96-108); Glomerular Filtration Rate 70; Glucose 107 mg/dL (70-105)
[2023-03-09] MEDS: FUROSEMIDE 40 MG TABLET PO SCH (08:54)
[2023-03-09] MEDS: ENOXAPARIN 40 MG/0.4 ML SYRINGE SQ SCH (08:54)
[2023-03-09] MEDS: POTASSIUM CHLORIDE 10 MEQ TABLET PO SCH (08:54)
[2023-03-09] MEDS: DOCUSATE SODIUM 100 MG CAPSULE PO SCH (08:54)
[2023-03-09] MEDS: buPROPion 150 MG TAB.XL.24H PO SCH (08:55)
[2023-03-09] MEDS: NIRMATRELVIR/RITONAVIR 1 EACH BOX PO SCH (08:55)
[2023-03-09] MEDS: SERTRALINE 100 MG TABLET PO SCH (08:55)
[2023-03-09] MEDS ORDERED: LOPERAMIDE 2 MG CAPSULE PO PRN (10:16)
[2023-03-09 12:04] VITALS: TEMP 98.2; O2SAT 93
== END 2023-03-09 14:20 ==
LOC: ED 17:01 → MEDSUR 17:01
PROVIDERS: ADMIT Internal Medicine; ATTEND Internal Medicine